=== PATIENT | female | born 2000 | race Hispanic/Latino ===

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

== ENCOUNTER 2025-02-23 00:55 | Emergency (ER) | payer SELFPAY ==
[2025-02-23 00:56] VITALS: BP 119/64; PULSE 64; RESP 14; TEMP 37.2; O2SAT 100; BMI 19.3
--- NOTE | 2025-02-23 01:08 | CT_ITS ---
PROCEDURE: SOFT TISSUE NECK WITH CONTRAST 02/23/2025 REASON FOR EXAM: ORAL ABSCESS TECHNIQUE: Procedure Code: CTNEW Modality: CT Procedure: SOFT TISSUE NECK WITH CONTRAST CONTRAST: Isovue 370 VOLUME: 75 mL One or more dose reduction techniques were used (e.g., Automated exposure control, adjustment of the mA and/or kV according to patient size, use of iterative reconstruction technique). RADIATION DOSE SUMMARY: CTDlvol: 9.9 mGy DLP: 276.49 mGycm COMPARISON: None FINDINGS: There is a mildly expansile lytic osseous lesion seen related to the root of the right lower second premolar tooth suggesting periapical cyst or abscess with associated overlying soft tissue swelling seen involving the right cheek region. Findings are highly suggestive of inflammatory process of dental origin, recommend clinical correlation. No cortical breach or sizable abscess formation seen on CT basis. The intracranial structures to the extent visualized appear within normal limits for the age of the patient. Bilateral mastoid air cells are well aerated. The visualized paranasal sinuses are well aerated. The nasopharynx, oropharynx, hypopharynx, supraglottic, glottic and infraglottic larynx, and trachea are unremarkable. Bilateral parotid and submandibular glands appear unremarkable. No evidence of duct dilatation or sialolith. The thyroid gland is unremarkable. The vessels of the neck are patent. No evidence of cervical adenopathy as per CT size criteria. Few subcentimeter level I and II reactive cervical lymph nodes are identified bilaterally. The visualized lung apices are clear. CT/Soft Tissue Neck WITH Contrast IMPRESSION: A mildly expansile lytic osseous lesion seen related to the root of the right l ower second premolar tooth suggesting periapical cyst or abscess with associated overlying soft tissue swelling seen involving t he right cheek region. Findings are highly suggestive of inflammatory process of dental origin, recommend clinical correla tion. [facility]
--- NOTE | 2025-02-23 01:30 | EDS_ITS ---
HPI History of Present Illness Chief Complaint: Dental Narrative Narrative: Patient was seen and examined after presenting to ED for dental pain she went to urgent care was prescribed antibiotics for this dental infection that she is having but she states she went home start developing a bump on the inside of her mouth she is also reporting fevers after going to urgent care as well she does not have a dentist but was given a dental referral sheet. PFSH PFSH Medical History delivery delivered Chlamydia infection affecting Placental abnormality History of prior with IUGR ventricular septal defect affecting antepartum care of mother Teen Placental abruption IUGR (intrauterine growth restriction) affecting care of mother Miscarriage Home Medications ?Medication ?Instructions ?Recorded ?Last Taken ?Type ibuprofen 600 mg tablet 600 mg PO Q6H PRN pain #20 t abs 06/14/21 Unknown Rx amoxicillin .ROUTE 02/23/25 Unknown Hist ory amoxicillin 875 mg-potassium 875 mg PO Q12H #20 TABLET S 02/23/25 Unknown Rx clavulanate 125 mg tablet Allergy/AdvReac Type Severity Reaction Status Date / Time No Known Allergies Allergy Verified 02/23/25 00:57 Social History Smoking Status: Never smoker ROS ROS ED ROS Narrative Pertinent Positives: Dental infection just darted antibiotics today now having what appears to be an abscess in the mouth and having fevers Pertinent Negatives: Chills numbness tingling airway compromise or difficulty breathing or swallowing The remainder of review of systems negative unless otherwise stated in the HPI above. Systems reviewed including constitutional, psychiatric, cardiovascular, respiratory, integument, HENT, gastrointestinal. EXAM Physical Exam Narrative Exam Narrative: Afebrile here she is normocephalic atraumatic hemodynamically stable. Oropharynx she has what appears to be an abscess on the inner mandibular side just under her tongue unsure of how far this may extend no lingual edema no angioedema or brawny tenderness or Nabil angina no airway compromise normal range of motion of head and neck is tender on palpation Const Vital Signs: 02/23/25 00:56 Temperature 98.9 F Temperature Source Oral Pulse Rate 64 Respiratory Rate 14 Blood Pressure 119/64 Blood Pressure Mean 82 Pulse Ox 100 Oxygen Delivery Method Room Air MDM MDM MDM Narrative Medical decision making narrative: Nursing notes, triage notes, available previous documentation, and vital signs were reviewed. Any discrepancies noted were addressed. Differential Diagnoses: Either apical or periapical abscess of her teeth there need to make sure that this does not extend further down like the base of the tongue not trench mouth does not appear to be consistent with Nabil angina Interventions: Dilaudid Zofran Antibiotics Given: Unasyn Labs Reviewed: No leukocytosis leukopenia or significant anemia or thrombocytopenia no electrolyte abnormality or renal insufficiency she is not Imaging Reviewed: Personally reviewed and interpreted by me: CT of the soft tissue neck showing expansive lytic osseous lesion at the root of the right lower second premolar tooth is consistent with a periapical abscess with soft tissue swelling as well. Previous Documentation Reviewed: None available or applicable at this time. ED Course: Patient presenting with a dental infection she likely has an abscess need to make sure it does not extend further into the mouth or neck if it does not we will go ahead and perform a bedside I&D. She was already given antibiotics. It does appear that she has a periapical abscess does not seem to be more extensive fortunately she is on Augmentin outside of here we will go ahead and give a dose of IV antibiotics here prior to her leaving they will I was originally planning on performing an I&D however the abscess ended up rupturing on its own and is actively draining. She will be given return precautions follow-up recommendations she is stable for discharge This note was made utilizing voice recognition software. All attempts were made to correct spelling or other errors prior to note completion. However, due to the fast-paced nature of emergency medicine, some errors may still be present. Lab Data Labs: Laboratory Results - last 24 hr 02/23/25 01:30 WBC 10.4 RBC 3.59 L Hgb 10.2 L Hct 31.8 L MCV 88.6 MCH 28.4 MCHC 32.1 RDW Std Deviation 42.5 RDW Coeff of Mina 13.0 Plt Count 248 MPV 10.1 Immature Gran % (Auto) 0.400 Neut % (Auto) 78.3 H Lymph % (Auto) 13.8 L [place] % (Auto) 6.2 Eos % (Auto) 1.0 Baso % (Auto) 0.3 Absolute Neuts (auto) 8.1 H Absolute Lymphs (auto) 1.43 Nucleated RBC % 0 Sodium 141 Potassium 3.6 Chloride 105 Carbon Dioxide 23.5 Anion Gap 13 BUN 5 Creatinine 0.54 L Estim Creat Clear Calc 124.09 Est GFR (MDRD) Non-Af 133 BUN/Creatinine Ratio 10.0 Glucose 112 H Calcium 8.9 Serum , Qual NEGATIVE Radiography Diagnostic Testing: Clinical Impression(s) from Imaging Studies Soft Tissue Neck CT 02/23/25 01:08 IMPRESSION: A mildly expansile lytic osseous lesion seen related to the root of the right lower second premolar tooth suggesting periapical cyst or abscess with associated overlying soft tissue swelling seen involving the right cheek region. Findings are highly suggestive of inflammatory process of dental origin, recommend clinical correlation. Reading Location: [place] [address] Discharge Plan Triage Chief Complaint: Dental ED Provider: Lalo Corley Dx/Rx/DC Orders Clinical Impression: Pain, dental, Periapical abscess, Chills Instructions: ED Dental Abscess Prescriptions: New amoxicillin-pot clavulanate 875-125 mg tablet 875 mg PO Q12H Qty: 20 0RF No Action ibuprofen 600 mg tablet 600 mg PO Q6H PRN (Reason: pain) Qty: 20 0RF amoxicillin .ROUTE Primary Care Provider: Care Physician,No Primary Referrals: Angelic Stovall NP, [facility] [Non-Staff, Pediatric Surgery] Activity Restrictions/Additional Instructions: I want you to go home and confirm that you have something called Augmentin otherwise known as amoxicillin clavulanate. If you have just plain amoxicillin I want you to go get the prescription I am writing you filled at the pharmacy. If it is rapidly getting worse and swelling is getting worse or you are having trouble breathing please return immediately otherwise give it a good 2 to 3 days worth of antibiotics Print Language: Maltese Disposition Disposition: Home, Self Care
[2025-02-23 01:41] LABS: Hematocrit 31.8 % (37-47); Hemoglobin 10.2 g/dL (12.0-15.0); Immature Granulocytes Count 0.040 X10^3/uL (0.0-0.0); Mean Corp Hgb Conc 32.1 g/dL (32-36); Mean Corpuscular Volume 88.6 fL (81-99); Mean Platelet Vol. 10.1 fl (6.2-12.0); NRBC Flagged by Analyzer 0 % (0-5); Platelet Count 248 K/mm3 (150-450); RBC Distribution Width CV 13.0 % (11.6-14.6); RBC Distribution Width SD 42.5 fl (35.1-43.9); Red Blood Count 3.59 M/mm3 (4.2-5.4); White Blood Count 10.4 K/mm3 (4.4-11.0)
--- OUTSIDE RECORDS SUMMARY | 2025-02-23 01:57 | XMS RPT_ITS | CCD ---
Author Organization [facility] Care Team Providers Care Tool Operator Name Role Phone VERONA STOVALL CNP Primary Care Physician RNVerona (Rn) Primary Care Provider Unavail able Pcp, No (History) Primary Care Provider Unavaila ble PCP, NO (HISTORY) Primary Care Unavailable CARLI ANN Attending Unavailable Medications Current Medications Medication Drug Class(es) Dates Sig (Normalized) Sig (Original) Ethinyl Estradiol / Levonorgestrel (2 sources) Progestin, Estrogen, Progestin-containi ng Intrauterine Device Start: 07-27-2021 take 1 tablet by mouth once daily Levonorgestrel-Eth inyl Estrad (ALESSE, 28,) 0.1mg - 20mcg per tablet Indications: Encounter for initial prescription of contraceptive pills Take 1 tablet by mouth once daily for 28 days. 28 tablet 0 07/27/2021 Active Start: 07-27-2021 End: 08-24-2021 take 1 tablet by mouth once daily Levonorgestrel-Ethinyl Estrad (ALESSE, 28,) 0.1mg - 20mcg per tablet Indications: Encounter for initial prescription of contraceptive pills Take 1 tablet by mouth once daily for 28 days. 28 tablet 0 07/27/2021 08/24/2021 Active Comment on above: Take 1 tablet by omar once daily for 28 days. ferrous sulfate 325 mg oral tablet (9 sources) Start: 05-27-2021 take 1 tablet by mouth once daily at breakfast ferrous sulfate (IRON) 325 mg (65 mg iron) tablet Take 1 tablet by mouth daily with breakfast. 30 tablet 1 05/27/2021 Active Start: 03-23-2021 IRON (ferrous sulfate 325 mg) 65 mg oral tablet Dose : 325 mg = 1 tab(s), Oral, BIDM, Take with food., # 60 tab(s), 3 Refill(s), [facility] DMIT[facility], 157.5, cm, 03/23/21 4:03:00 EST, Height, kg, 03/23/21 4:03:00 EST, Dosing Weight Start Date: 03/23/21 Status: Ordered Comment on above: Take 1 tablet by omar th daily with breakfast. metroNIDAZOLE 500 mg oral tablet (1 source) Nitroimidazole Antimicrobial Start: 09-25-19 End: 10-02-19 take 1 tablet by mouth twice daily metroNIDAZOLE (FLAGYL) 500 mg tablet Indications: Bacterial vaginosis Take 1 tablet by mouth two times a day for 7 days. 14 tablet 0 09/25/2023 10/02/2023 Active ondansetron 8 mg oral tablet (1 source) Serotonin-3 Receptor Antagonist Start: 03-23-19 Zofran 8 mg oral tablet Dose : 8 mg = 1 tab(s), Oral, TID, PRN Nausea/Vomiting, 0 Refill(s) Start Date: 03/23/21 Status: Ordered PNV no.95/ferrous fum/folic ac ( ORAL) (8 sources) PNV no.95/ferrou s fum/folic ac ( ORAL) Take by mouth. 0 Active Comment on above: Take by mouth. Prenate (1 source) Start: 03-23-19 Prenate Dose = 1 tab(s), Chewed, qDay, 0 Refill(s) Start Date: 03/23/21 Status: Ordered Problems Active Problems Problem Classification Problem Date Documented Date Episodic/Chronic Bacterial infection; unspecified site (9 sources) Chlamydial infection; Translations: [Chlamydial infection, unspecified] Onset: 04-21-2020 04-21-2020 Episodic Contraceptive and procreative management (1 source) Patient encounter status; Translations: [Encounter for initial prescription of contraceptive pills] Episodic Hemorrhage during ; abruptio placenta; placenta previa (1 source) Bleeding from female genital tract during ; Translations: [Antepartum hemorrhage, unspecified, unspecified trimester] Episodic Inflammatory diseases of female pelvic organs (2 sources) Bacterial vaginosis; Translations: [Acute vaginitis] Onset: 09-25-2023 09-25-2023 Episodic Other complications of ; puerperium affecting management of mother (1 source) Suspected disorder; Translations: [Maternal care for (suspected) abnormality and damage, unspecified, not applicable or unspecified] Episodic Other complications of ; puerperium affecting management of mother (1 source) Abnormality of heart; Translations: [Maternal care for other (suspected) abnormality and damage, not applicable or unspecified] Episodic Other and delivery including normal (3 sources) ; Translations: [Normal ] Onset: 03-11-2021 03-23-2021 Episodic Residual codes; unclassified (2 sources) Gestation period, 36 weeks; Translations: [36 weeks gestation of ] Episodic Past or Other Problems Problem Classification Problem Date Documented Da te Episodic/Chronic Other complications of (7 sources) Uterine size for dates discrepancy; Translations: [Uterine size-date discrepancy, third trimester] Onset: 04-29-2021 Resolved: 07-27-2021 04-29-2021 Episodic Other complications of (7 sources) History of clinical finding in subject; Translations: [Supervision of with insufficient care, unspecified trimester] Onset: 05-07-2021 Resolved: 07-27-2021 05-07-2021 Episodic Other complications of (7 sources) Teenage ; Translations: [Supervision of other high risk pregnancies, third trimester] Onset: 05-07-2021 Resolved: 07-27-2021 05-07-2021 Episodic Other complications of (8 sources) Poor growth affecting management; Translations: [Maternal care for other known or suspected poor growth, third trimester, not applicable or unspecified] Onset: 06-05-2021 Resolved: 07-27-2021 06-05-2021 Episodic Results Test Name Value Interpretation Reference Range Facil ity Bacteria Ur Culton Bacteria identified Cx Nom (U) CULTURE, URINE: <10,000 CFU/ml Normal Urogenital Talha Normal [facility] Comment on above: Performed By: #### 6 30-4 #### [facility] CLIA [id number] [facility] [place] [address] [place] C. trachomatis+N. gonorrhoea e DNA ASHLYN+probe Ql (Unsp spec)on 09-25-2023 C. trachomatis rRNA ASHLYN+probe Ql (Unsp spec) Positive Abnormal Negative for Chlamydia trachomatis by amplificaton [facility] Comment on above: Order Comment: Speci men Type: SWAB Ordering Facility: [facility] Address: [address] [place] [address] Performed By: #### 3 6902-5 #### [facility] CLIA [id number] [address] [place] [address] N. gonorrhoeae rRNA ASHLYN+probe Ql (Unsp spec) Negative Normal Negative for Neisseria gonorrhoeae by amplification [facility] Comment on above: Order Comment: Speci men Type: SWAB Ordering Facility: [facility] Address: [address] [place] [address] Performed By: #### 3 6902-5 #### [facility] CLIA [id number] [address] [place] [address] CNOVon 09-25-2023 CNOV Office Visit ([facility] ) MINNIE KHAN ([id number]) 4 F Date Time Provider Department 09/25/23 4:55 PM CARLI ANN [facility] During your visit today, we recorded the following information about you: Temperature Pulse Respiration Blood pressure 97.9 degrees 79/minute 16/minute 94/60 Weight Last Period 46.7 kg 08/31/23 Carli Ann PA-C 09/25/2023 6:26 PM Signed Minnie Pembertonwendy Bennett is a 23 year old female who presents with Vaginal Problem (Vaginal burning x 3 days denies any other symptoms ) Patient is a 23-year-old female presenting today with vaginal burning. Patient states that she has had symptoms for about 3 days now. Patient denies any other symptoms. Patient is sexually active but she does not think there could be any possible exposures to STDs. Patient was wanting to come in to be evaluated because her symptoms seem to be getting worse. PAST MEDICAL HISTORY Diagnosis Date Miscarriage 04/20/2020 Ovarian cyst 2017 ACTIVE PROBLEM LIST Chlamydial Infection Current Outpatient Medications Medication Sig Dispense Refill metroNIDAZOLE (FLAGYL) 500 mg tablet Take 1 tablet by mouth two times a day for 7 days. 14 tablet 0 Levonorgestrel-Ethinyl Estrad (ALESSE, 28,) 0.1mg - 20mcg per tablet Take 1 tablet by mouth once daily for 28 days. 28 tablet 0 ferrous sulfate (IRON) 325 mg (65 mg iron) tablet Take 1 tablet by mouth daily with breakfast. (Patient not taking: Reported on 09/25/2023) 30 tablet 1 PNV no.95/ferrous fum/folic ac ( ORAL) Take by mouth. (Patient not taking: Reported on 09/25/2023) No current facility-administered medications for this visit. Social History Tobacco Use Smoking status: Never Smokeless tobacco: Never Alcohol Use: Not on file Tobacco Use: Never History reviewed. No pertinent family history. Review of Systems Constitutional: Negative for chills, fever and malaise/fatigue. Respiratory: Negative. Cardiovascular: Negative. Gastrointestinal: Negative for abdominal pain, nausea and vomiting. Genitourinary: Negative for dysuria, flank pain, frequency, hematuria and urgency. Denies vaginal discharge. Admits to vaginal burning. Denies STD exposure. BP 94/60 Pulse 79 Temp 97.9 Resp 16 Wt 103 lb (46.7kg) SpO2 100% LMP 08/31/2023 Physical Exam Vitals and nursing note reviewed. Constitutional: General: She is not in acute distress. Appearance: Normal appearance. Cardiovascular: Rate and Rhythm: Normal rate and regular rhythm. Pulmonary: Effort: Pulmonary effort is normal. Breath sounds: Normal breath sounds. Abdominal: General: Abdomen is flat. Bowel sounds are normal. Tenderness: There is no abdominal tenderness. There is no right CVA tenderness, left CVA tenderness or guarding. Genitourinary: Comments: Delfina GUZMÁN was jira developer during this visit. Patient has normal outside structures. No lesions or rashes noted. Speculum was inserted normal vaginal holt cervix and cervical os. There is drainage near the cervical os which was taken for culture. No strawberry cervix noted on examination. No cervical motion tenderness noted on examination. Neurological: Mental Status: She is alert and oriented to person, place, and time. ASSESSMENT/PLAN: 1. Bacterial vaginosis - ICD9: 616.10, 041.9, ICD10: N76.0, B96.89 - URINALYSIS, DIPSTICK ONLY - HCG, QUALITATIVE, URINE - URINE CULTURE - TRICHOMONAS PREP - RAPID BACT VAGINOSIS (AK) - YEAST SCREEN - GONORRHEA/CHLAMYDIA NAAT - METRONIDAZOLE 500 MG TABLET Urinalysis urine was done in office today both were within normal limits. Urine culture will be sent out as well as testing for yeast infections and gonorrhea and chlamydia. Rapid BV and trichomoniasis were done in office today rapid strep was negative and rapid BV was positive. Metronidazole was sent to the pharmacy for the patient to take care of the BV and she is to take this as directed. We will call her if there is any positive results on further testing. Follow-up at [facility] if not improving. Patient agrees and understands plan at this time. Patient was stable upon discharge from [facility]. Carli Ann PA-C Referring Provider: SELF [200] Allergies As of Date: 09/25/2023 (No Known Allergies) Date Reviewed: 09/25/2023 Reviewed by: Carli Ann PA-C - Fully Assessed Reason for Visit: Vaginal Problem [117] Cmt: Vaginal burning x 3 days denies any other symptoms Primary Visit Diagnosis:Bacterial vaginosis [N76.0, B96.89] Order(s):URINALYSIS, DIPSTICK ONLY [SQUA] Order #: [id number] FUTURE HCG, QUALITATIVE, URINE [SQUHCG] Order #: [id number] FUTURE URINE CULTURE [SQURCUL] Order #: [id number]. #:[id number] URINALYSIS, DIPSTICK ONLY [SQUA] Order #: [id number]. #:[id number] HCG, QUALITATIVE, URINE [SQUHCG] Order #: [id number]. (more content not included)... [facility] Fungus Spec Culton 4 Fungus identified Cx Nom (Unsp spec) CULTURE, FUNGAL: No Fungus isolated after 10 days Normal [facility] Comment on above: Performed By: #### 5 80-1 #### [facility] CLIA [id number] [address] [facility] [place] [address] [place] HCG ( test) Ql (U)o n 09-25-2023 Interpretation and review of laboratory results Normal [facility] HCG Preg Ur Qlon 09-25-2023 HCG ( test) Ql (U) Negative Normal Negative [facility] Comment on above: Order Comment: Speci men Type: URINE SPECIMEN Ordering Facility: [facility] Address: [address] [place] [address] Result Comment: This test is intended to aid in the early detection of . Very dilute urine samples, as indicated by a low specific gravity, may not contain financial service representative levels of hCG. This test detects intact hCG only. This test does not reliably detect hCG degradation products, including free-beta subunit and beta-core fragment. Therefore, this test may show reduced reactivity in urine after 8 weeks gestation. A number of conditions other than , including trophoblastic disease and certain non-trophoblastic neoplasms cause elevated levels of hCG. As with any assay employing mouse antibodies, the possibility exists for interference by human anti-mouse antibodies (HAMA) in the specimen. The test provides a presumptive diagnosis for . Performed By: #### U A, 2106-3 #### [facility] CLIA [id number] [address] [place] [address] [place] HCG, QUALITATIVE, URINE PREG NANCYon 09-25-2023 HCG ( test) Ql (U) Negative Negative [facility] Comment on above: This test is intende d to aid in the early detection of . Very dilute urine samples, as indicated by a low specific gravity, may not contain financial service representative levels of hCG. This test detects intact hCG only. This test does not reliably detect hCG degradation products, including free-beta subunit and beta-core fragment. Therefore, this test may show reduced reactivity in urine after 8 weeks gestation. A number of conditions other than , including trophoblastic disease and certain non-trophoblastic neoplasms cause elevated levels of hCG. As with any assay employing mouse antibodies, the possibility exists for interference by human anti-mouse antibodies (HAMA) in the specimen. The test provides a presumptive diagnosis for . RAPID BACT VAGINOSIS (AK)on 09-25-2023 Bacterial sialidase Ql (Unsp spec) Positive Abnormal Negative for the presence of bacterial vaginosis. [facility] Interpretation and review of laboratory results Abnormal [facility] Bacterial sialidase Ql (Unsp spec) Positive Abnormal Negative for the presence of bacterial vaginosis. [facility] Comment on above: Order Comment: Speci men Type: SWAB Ordering Facility: [facility] Address: [address] [place] [address] Performed By: #### R APBVAG #### [facility] CLIA [id number] [address] [place] [address] OF [place] T vaginalis Ag Genital Ql IA on 09-25-2023 T. vaginalis Ag IA Ql (Genital specimen) TRICHOMONAS PREP RESULT: Negative for Trichomonas vaginalis antigen Normal [facility] Comment on above: Performed By: #### 6 566-4 #### [facility] CLIA [id number] [address] [place] [address] [place] T. vaginalis Ag IA Ql (Genit al specimen)Ordered By: Mariam Win on 09-25-2023 Interpretation and review of laboratory results Normal [facility] TRICHOMONAS PREPOrdered By: Mariam Win on 09-25-2023 T. vaginalis Ag IA Ql (Genital specimen) Negative Negative for Trichomonas Antigen [facility] URINALYSIS, DIPSTICK ONLYOrd ered By: Didi Lew on 09-25-2023 Bilirubin Ql (U) Negative Negative [facility] Clarity (Unsp spec) Clear Clear [facility] Color (U) Yellow Yellow [facility] Glucose Test strip (U) [Mass/Vol] Negative Negative [facility] Hemoglobin Ql (U) Negative Negative [facility] Interpretation and review of laboratory results Normal [facility] Ketones Ql (U) Negative Negative [facility] Leukocyte esterase Test strip Ql (U) Negative Negative [facility] Nitrite Ql (U) Negative Negative [facility] pH (U) 6.0 [pH] 5.0 - 8.0 [facility] Protein (U) [Mass/Vol] Negative Negative [facility] Specific gravity (U) [Rel density] 1.025 1.005 - 1.030 [facility] Urobilinogen Ql (U) Negative Negative [facility] URINALYSIS, DIPSTICK ONLYon 09-25-2023 Bilirubin Ql (U) Negative Normal Negative [facility] Comment on above: Order Comment: Speci men Type: URINE SPECIMEN Ordering Facility: [facility] Address: [address] [place] [address] Performed By: #### U A, 2105-05 #### [facility] CLIA [id number] [address] [place] [address] [place] Clarity (Unsp spec) Clear Normal Clear [facility] Comment on above: Order Comment: Speci men Type: URINE SPECIMEN Ordering Facility: [facility] Address: [address] [place] [address] Performed By: #### U A, 2105-05 #### [facility] CLIA [id number] [address] [place] [address] [place] Color (U) Yellow Normal Yellow [facility] Comment on above: Order Comment: Speci men Type: URINE SPECIMEN Ordering Facility: [facility] Address: [address] [place] [address] Performed By: #### U A, 2105-05 #### [facility] CLIA [id number] [address] [place] [address] [place] Glucose Test strip (U) [Mass/Vol] Negative Normal Negative [facility] Comment on above: Order Comment: Speci men Type: URINE SPECIMEN Ordering Facility: [facility] Address: [address] [place] [address] Performed By: #### U A, 2105-05 #### [facility] CLIA [id number] [address] [place] [address] [place] Hemoglobin Ql (U) Negative Normal Negative [facility] Comment on above: Order Comment: Speci men Type: URINE SPECIMEN Ordering Facility: [facility] Address: [address] [place] [address] Performed By: #### U A, 2105-05 #### [facility] CLIA [id number] [address] [place] [address] Ketones Ql (U) Negative Normal Negative [facility] Comment on above: Order Comment: Speci men Type: URINE SPECIMEN Ordering Facility: [facility] Address: [address] [place] [address] Performed By: #### U A, 2105-05 #### [facility] CLIA [id number] [address] [place] [address] [place] Leukocyte esterase Test strip Ql (U) Negative Normal Negative [facility] Comment on above: Order Comment: Speci men Type: URINE SPECIMEN Ordering Facility: [facility] Address: [address] [place] [address] Performed By: #### U A, 2105-05 #### [facility] CLIA [id number] [address] [place] [address] [place] Nitrite Ql (U) Negative Normal Negative [facility] Comment on above: Order Comment: Speci men Type: URINE SPECIMEN Ordering Facility: [facility] Address: [address] [place] [address] Performed By: #### U A, 2105-05 #### [facility] CLIA [id number] [address] [place] [address] [place] pH (U) 6.0 [pH] Normal 5.0-8.0 [facility] Comment on above: Order Comment: Speci men Type: URINE SPECIMEN Ordering Facility: [facility] Address: [address] [place] [address] Performed By: #### U A, 2105-05 #### [facility] CLIA [id number] [address] [place] [address] [place] Protein (U) [Mass/Vol] Negative Normal Negative [facility] Comment on above: Order Comment: Speci men Type: URINE SPECIMEN Ordering Facility: [facility] Address: [address] [place] [address] Performed By: #### U A, 2105-05 #### [facility] CLIA [id number] [address] [place] [address] Specific gravity (U) [Rel density] 1.025 Normal 1.005-1.030 [facility] Comment on above: Order Comment: Speci men Type: URINE SPECIMEN Ordering Facility: [facility] Address: [address] [place] [address] Performed By: #### U A, 2105-05 #### [facility] CLIA [id number] [address] [place] [address] Urobilinogen Ql (U) Negative Normal Negative [facility] Comment on above: Order Comment: Speci men Type: URINE SPECIMEN Ordering Facility: [facility] Address: [address] [place] [address] Performed By: #### U A, 2105-05 #### [facility] CLIA [id number] [address] [place] [address] Pathology Specimen OBon 05-21 PATH. Spec OB SEE PATHOLOGY REPORT Normal [facility] Comment on above: Order Comment: Reaso n for Laboratory Test Placenta for Lab studies Send Specimen For (Specify): Studies @ [facility] Lab:Routine Time of Procedure: 204 Date of Procedure: 06/13/21 Reason specimen being sent to pathology (Hx/complications): placental abruption Type of specimen: Placenta Type of procedure performed: Primary Section Result Comment: Spec imen submitted to Anatomical Pathology Department for testing. Performed By: #### L 350.1800 #### [facility] [address] [place], [place], [id number] CBC-Complete Blood Cnt No Di ffon 06-14-2021 Erythrocyte distribution width (RBC) [Ratio] 14.0 % Normal 11.6-14.6 [facility] Comment on above: Order Comment: Comme nts: Day #1 Reason for Laboratory Test Performed By: #### L 100.0500 #### [facility] [address] [place], [address] Hematocrit (Bld) [Volume fraction] 26.8 % Low 37-46 [facility] Comment on above: Order Comment: Comme nts: Day #1 Reason for Laboratory Test Performed By: #### L 100.0500 #### [facility] [address] [place], [address] Hemoglobin (Bld) [Mass/Vol] 8.7 g/dL Low 12.0-15.0 [facility] Comment on above: Order Comment: Comme nts: Day #1 Reason for Laboratory Test Performed By: #### L 100.0500 #### [facility] [address] [place], [address] MCH (RBC) [Entitic mass] 29.6 pg Normal 25.0-35.0 [facility] Comment on above: Order Comment: Comme nts: Day #1 Reason for Laboratory Test Performed By: #### L 100.0500 #### [facility] [address] [place], [address] MCHC (RBC) [Mass/Vol] 32.5 g/dL Normal 32-36 [facility] Comment on above: Order Comment: Comme nts: Day #1 Reason for Laboratory Test Performed By: #### L 100.0500 #### [facility] [address] [place], [address] MCV (RBC) [Entitic vol] 91.2 fL Normal 78-96 [facility] Comment on above: Order Comment: Comme nts: Day #1 Reason for Laboratory Test Performed By: #### L 100.0500 #### [facility] [address] [place], [address] Platelet mean volume (Bld) [Entitic vol] 12.4 fL High 6.2-12.0 [facility] Comment on above: Order Comment: Comme nts: Day #1 Reason for Laboratory Test Performed By: #### L 100.0500 #### [facility] [address] [place] [place], [address] Platelets (Bld) [#/Vol] 130 10*3/uL Low 150-450 [facility] Comment on above: Order Comment: Comme nts: Day #1 Reason for Laboratory Test Performed By: #### L 100.0500 #### [facility] [address] [place], [address] RBC (Bld) [#/Vol] 2.94 10*6/uL Low 4.1-4.8 [facility] Comment on above: Order Comment: Comme nts: Day #1 Reason for Laboratory Test Performed By: #### L 100.0500 #### [facility] [address] [place] [place], [address] RDW SD 46.3 fl High 35.1-43.9 [facility] Comment on above: Order Comment: Comme nts: Day #1 Reason for Laboratory Test Performed By: #### L 100.0500 #### [facility] [address] [place] [place], [address] WBC (Bld) [#/Vol] 12.8 10*3/uL Normal 4.5-13.0 [facility] Comment on above: Order Comment: Comme nts: Day #1 Reason for Laboratory Test Performed By: #### L 100.0500 #### [facility] [address] [place] [place], [address] Discharge Instructionon 05-20 Discharge Instruction [facility] Medical Records Department [address] [place] [address] Instructions for Home/Discharge Instructions 06/14/21 1135 MR#: [id number] Acct: [id number] Name: MINNIE KHAN Rep #: [id number] : 2000 20 From: Verona York DO PCP: MOUNA Lizama Status:ADM IN Discharge Instructions Diet Discharge Diet: No restrictions Activity Discharge Activity: May Not Drive and May Shower May resume sexual activity in: 6 weeks Ice area for (Minutes): 15 Weight Bearing Status: Weight bearing as tolerated Lifting Restrictions: Nothing heavier than baby Dressing / Incision Call your doctor if your incision/area has: Sudden Increased Bleeding, Increased Pain/ Swelling, Increased Redness, Foul Smelling Discharge and Swelling at the incision site Call your doctor if you observe: Fever of 101 or Higher, Coldness, Increased Pain, Numbness or Tingling, Change in Color, Inability to urinate, Inability to have a bowel movement, Using more than 1 pad per hour, Shortness of breath, Dizziness, Fainting spells, Swelling in the ankles, Chest pain, Increased palpitations (irregular heartbeat), Calf discomfort and Uncontrolled pain Suture Line Care: Avoid Pulling/Pushing and Avoid Pinching/Bending Remove Dressing in: 3 days (Remove in shower 3-4 days after your surgery or sooner if dresssing is saturated) Cleanse incision/area with: Soap Water Follow Up Care Please Follow Up With: verona york When: 1 week for incision check 6 weeks for visit Test Results: Test results from this visit will be discussed in further detail at your follow-up appointment, if applicable. Discharge Plan Admission Admit Date/Time: 06/12/21 23:45 Primary Reason for Your Visit: delivery Attending Provider: Verona York Primary Care Provider: Verona Stovall NP Instructions Patient Instructions: After a , C Section Dc Discharge Orders/Prescriptions Prescriptions: New oxycodone-acetaminophen [Percocet] 5-325 mg tablet 1 tab PO Q8H PRN (Reason: pain) 7 Days Qty: 10 RF: 0 ibuprofen 600 mg tablet 600 mg PO Q6H PRN (Reason: pain) Qty: 20 RF: 0 docusate sodium [Colace] 100 mg capsule 100 mg PO BID Qty: 20 RF: 0 ferrous sulfate 325 mg (65 mg iron) tablet 325 mg PO QODAY Qty: 30 RF: 0 Referrals / Follow Up: Verona Stovall NP, MECHANICAL ENGINEERING LECTURER-C [Primary Care Provider] - Disposition Disposition (needs filled in before D/C Order can be placed): Home, Self Care 06/14/21 1138 Verona York DO CC: MECHANICAL ENGINEERING LECTURER-C Verona Stovall Signed Normal [facility] CBC W/Diff, Automatedon 05-20 Absolute Lymph 1.03 X10 3/uL Normal 0.83-4.51 [facility] Comment on above: Performed By: #### L 100.0500, L300.3900, L300.4310, L300.4700 #### [facility] [address] [place], [address] Absolute Neut 6.4 X10 3/uL Normal 2.0-7.7 [facility] Comment on above: Performed By: #### L 100.0500, L300.3900, L300.4310, L300.4700 #### [facility] [address] [place], [address] Basophils/100 WBC (Bld) 0.5 % Normal 0-1 [facility] Comment on above: Performed By: #### L 100.0500, L300.3900, L300.4310, L300.4700 #### [facility] [address] [place], [address] Eosinophils/100 WBC (Bld) 1.5 % Normal 0-3 [facility] Comment on above: Performed By: #### L 100.0500, L300.3900, L300.4310, L300.4700 #### [facility] [address] [place], [address] Erythrocyte distribution width (RBC) [Ratio] 13.6 % Normal 11.6-14.6 [facility] Comment on above: Performed By: #### L 100.0500, L300.3900, L300.4310, L300.4700 #### [facility] [address] [place], [address] Hematocrit (Bld) [Volume fraction] 28.9 % Low 37-46 [facility] Comment on above: Performed By: #### L 100.0500, L300.3900, L300.4310, L300.4700 #### [facility] [address] [place], [address] Hemoglobin (Bld) [Mass/Vol] 9.6 g/dL Low 12.0-15.0 [facility] Comment on above: Performed By: #### L 100.0500, L300.3900, L300.4310, L300.4700 #### [facility] [address] [place], [address] IG% 4.400 High 0.0-0.9 [facility] Comment on above: Result Comment: IG% - Immature Granulocytes (promyelocytes, myelocytes and metamyelocytes) > 1% indicates that a LEFT SHIFT is Present. Performed By: #### L 100.0500, L300.3900, L300.4310, L300.4700 #### [facility] [address] [place], [address] Lymphocytes/100 WBC (Bld) 11.8 % Low 25-45 [facility] Comment on above: Performed By: #### L 100.0500, L300.3900, L300.4310, L300.4700 #### [facility] [address] [place], [address] MCH (RBC) [Entitic mass] 30.4 pg Normal 25.0-35.0 [facility] Comment on above: Performed By: #### L 100.0500, L300.3900, L300.4310, L300.4700 #### [facility] [address] [place], [address] MCHC (RBC) [Mass/Vol] 33.2 g/dL Normal 32-36 [facility] Comment on above: Performed By: #### L 100.0500, L300.3900, L300.4310, L300.4700 #### [facility] [address] [place], [address] MCV (RBC) [Entitic vol] 91.5 fL Normal 78-96 [facility] Comment on above: Performed By: #### L 100.0500, L300.3900, L300.4310, L300.4700 #### [facility] [address] [place], [address] Monocytes/100 WBC (Bld) 8.6 % High 3-6 [facility] Comment on above: Performed By: #### L 100.0500, L300.3900, L300.4310, L300.4700 #### [facility] [address] [place], [address] Neutrophils/100 WBC (Bld) 73.2 % High 34-64 [facility] Comment on above: Performed By: #### L 100.0500, L300.3900, L300.4310, L300.4700 #### [facility] [address] [place], [address] Nucleated RBC (Bld) [#/Vol] 1.7 10*3/uL Normal 0-5 [facility] Comment on above: Performed By: #### L 100.0500, L300.3900, L300.4310, L300.4700 #### [facility] [address] [place], [address] Platelet mean volume (Bld) [Entitic vol] 13.6 fL High 6.2-12.0 [facility] Comment on above: Performed By: #### L 100.0500, L300.3900, L300.4310, L300.4700 #### [facility] [address] [place], [address] Platelets (Bld) [#/Vol] 146 10*3/uL Low 150-450 [facility] Comment on above: Performed By: #### L 100.0500, L300.3900, L300.4310, L300.4700 #### [facility] [address] [place], [address] RBC (Bld) [#/Vol] 3.16 10*6/uL Low 4.1-4.8 [facility] Comment on above: Performed By: #### L 100.0500, L300.3900, L300.4310, L300.4700 #### [facility] [address] [place], [address] RDW SD 45.1 fl High 35.1-43.9 [facility] Comment on above: Performed By: #### L 100.0500, L300.3900, L300.4310, L300.4700 #### [facility] [address] [place], [address] WBC (Bld) [#/Vol] 8.7 10*3/uL Normal 4.5-13.0 [facility] Comment on above: Performed By: #### L 100.0500, L300.3900, L300.4310, L300.4700 #### [facility] [address] [place], [address] CNPCrystal 06-13-2021 BIANCA Telephone (OBGYWM) MINNIE KHAN ([id number]) 4 F Date Time Provider Department 06/13/21 WISWELL, VERONA OBGYWM During your visit today, we recorded the following information about you: Verona York MD 06/13/2021 11:16 AM Signed Pt presented to [facility] with vaginal bleeding, abdominal pain, ctx's, and late decelerations. Delivered by primary section on 06/13/21. She will need follow up in 1 week. Karla Mehta RN 06/15/2021 8:51 AM Signed Left message with mother to have patient call the office to schedule. Karla Mehta RN Allergies As of Date: 06/13/2021 (No Known Allergies) Date Reviewed: 06/12/2021 Reviewed by: Aide Evangelista MA - Fully Assessed Reason for Visit: Appointment [186] Prescriptions as of 06/15/2021 - ferrous sulfate (IRON) 325 mg (65 mg iron) tablet Take 1 tablet by mouth daily with breakfast. - PNV no.95/ferrous fum/folic ac ( ORAL) Take by mouth. Problem List As Of Date 06/13/2021 Noted Resolved Chlamydial infection [A74.9] 04/21/2020 Uterine size-date discrepancy, third trimester *04/29/2021 History of inadequate care [O09.30] 05/07/2021 High risk teen in third trimester [O0*05/07/2021 Poor growth affecting management of mothe*06/05/2021 Encounter Status:Closed by VERONA YORK on 06/13/21 [facility] COVID 19 AG RAPID (KIMBERLI TIAN T)on 06-13-2021 SARS-CoV-2 (COVID-19) RNA ASHLYN+probe Ql (Unsp spec) *Negative results from patients with symptom onset beyond five days should be treated as presumptive and confirmed by a molecular assay if clinically necessary. Negative results should not be used as the sole basis for treatment or for patient management. SARS-CoV-2 Ag Resp Ql IA.rapid *Positive results do not differentiate between SARS-CoV and SARS-CoV-2. If differentation of the specific SARS virus is desired an additional sample and an additional order is required. SARS-CoV-2 Ag Resp Ql IA.rapid * This test has not been FDA cleared or approved; the test has been authorized by FDA under an Emergency Use Authorization (EAU) for use by laboratories certified under CLIA that meet the requirements to perform moderate, high, or waived complexity tests. SARS-CoV-2 Ag Resp Ql IA.rapid Normal Reference Range: Negative SARS-CoV-2 (COVID 19) Negative RAPID METHOD Quidel Angelica Analyzer RULA Normal [facility] Comment on above: Performed By: #### L 100.0500, L300.3900, L300.4310, L300.4700 #### [facility] [address] [place], [address] H AND P Exam - OB/GYNon 05-20 H&P Exam - CLINICAL OUTCOMES MANAGER [facility] Medical Records Department [address] [place] [address] H P Exam - CLINICAL OUTCOMES MANAGER 06/13/21 0012 MR#: [id number] Acct: [id number] Name: MINNIE KHAN Rep #: [id number] : 2000 20 From: Verona York DO PCP: TIGRE LizamaC Status:ADM IN Location: [id number] HPI - General General Date of Admission: 06/12/21 HPI Narrative MINNIE BENNETT, is a 20 F who presents with vaginal bleeding. 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 She had first episode of vaginal bleeding about 1 week ago. She presented to the office today for a routine OB visit with no complaints. Came in tonight after passing a large blood clot at home and having a new episode of vaginal bleeding. Having ctx's as well. No lof. +FM. Maternal Data Information REYNA Calculator Estimated Delivery Date Method Current WG Current Estimate 07/04/21 Manual 37w 0d PFSH [facility] Medical History Miscarriage Home Medications 1 tab PO/SL DAILY 05/10/21 [History Last Taken 06/12/21 10:00] iron 325 mg PO/SL DAILY 05/10/21 [History Last Taken 06/12/21 10:00] Allergy/AdvReac Type Severity Reaction Status Date / Time No Known Allergies Allergy Verified 06/12/21 22:39 Social History Smoking Status: Never smoker History Elective abortions Hx Para 0 Spontaneous abortions Hx # Term Pregnancies Ectopic pregnancies Hx # Pregnancies Multiple births # of living children NST FHR Rate Baby A Baseline: 160 Variability:: Minimal and Moderate Accelerations:: 15 x 15 Decelerations:: Late Vital Signs Vital Signs Vital Signs: 06/12/21 22:45 06/12/21 22:48 06/12/21 23:23 Temperature 99.0 F Temperature Source Oral Pulse Rate 89 86 Blood Pressure 122/74 BP Systolic 122 BP Diastolic 74 Pulse Ox 100 Weight Weight: 113 lb 9.6 oz Body Mass Index (BMI) 20.7 Labs Labs Labs: Blood Type O POSITIVE Antibody Screen NEGATIVE Hct 28.8 % (37-46) L Hgb 9.8 g/dL (12.0-15.0) L Obstetrics US Assessment Plan (1) 37 weeks gestation of : PLAN: Recommend delivery at this time. Patient has had late decelerations with her contractions. Given this and a suspected chronic placental abruption with IUGR, I discussed with patient that fetus will likely not tolerate labor if we start an induction. Cvx 1/t/h so induction would likely be prolonged as well. Discussed if we do start an induction and baby is not tolerating labor there is a risk for an emergent section. Recommend proceeding with a primary section at this time. Discussed risk, benefits, alternatives of both an induction of labor and a section. Allowed patient time to consider and discuss plan of care with her . Patient met with pediatric cardiology yesterday, and they cleared her for delivery at [facility]. ventricular septal defect noted on echo. GBS negative. Received BMZ 06/05, 06/06. (2) IUGR (intrauterine growth restriction) affecting care of mother: (3) Vaginal bleeding during , antepartum: (4) Uterine contractions: (5) Placental abruption: (6) Teen : (7) ventricular septal defect affecting antepartum care of mother: 06/13/21 0022 Cosigner Signature (if applicable): CC: MOUNA Stovall; Dr. Verona York DO Signed ADDENDUM by Dr. Verona York DO on 06/13/21 at 0207 Addendum Patient discussed induction vs expectant management vs section with her . She understood r/b/a of a section and desired to proceed. Consent obtained. 06/13/21206 Cosigner Signature (if applicable): cc: MOUNA Stovall; Dr. Verona York, DO * Signed Normal [facility] Operative Reporton Operative Report [facility] Medical Records Department [address] [place] [address] Operative Report 06/13/21206 MR#: [id number] Acct: [id number] Name: MINNIE KHAN Rep #: [id number] : 2000 20 From: Verona York DO PCP: MOUNA Lizama Status:ADM IN Location: [id number] Problems Associated Problem List Diagnoses (1) 37 weeks gestation of : (2) Placental abruption: (3) Teen : (4) ventricular septal defect affecting antepartum care of mother: (5) IUGR (intrauterine growth restriction) affecting care of mother: (6) Vaginal bleeding during , antepartum: (7) Uterine contractions: (8) intolerance to labor, delivered, current hospitalization: Report of Operation Date of Procedure: 06/13/21 Pre-Operative Diagnosis: 37 week gestation, IUGR, suspected chronic placental abruption, vaginal bleeding, intolerance Post-Operative Diagnosis: As above Surgery/Procedure Performed:: PLTCS via pfannenstiel incision Description of Surgical Findings:: VFI in cephalic presentation. Clear fluid. Placenta with a small clot and abruption noted. Placenta was sent to pathology. Normal-appearing uterus and bilateral adnexa. Apgars 8, 9. Baby 4+ lbs. Surgeon: Jaylen financial analysis advisor: Priscilla Type of Anesthesia: Spinal Special Medications: None Specimen's removed: Placenta Drains: De La Cruz Estimated Blood Loss (mL): 500 Fluids Replaced: 1300 Description of Procedure: Indications: Patient is an 20-year-old who presented to labor and delivery at 37 weeks and 0 days with vaginal bleeding. Known IUGR and suspected chronic placental abruption. Maternal medicine recommended delivery at 37 weeks. Patient was having irregular contractions, and upon presentation late decelerations were noted with contractions. She desired to proceed with a primary section. Patient was taken to the operating room where a spinal anesthesia was found to be adequate. She was prepped and draped in the dorsal position with a leftward tilt. A Pfannenstiel skin incision was made with a scalpel and this was carried down to the underlying layer of fascia. The fascia was incised in the midline. The fascia was extended laterally using Cornejo scissors. The fascia was dissected off of the rectus muscles using a combination of sharp and blunt dissection. The rectus muscles were in the midline. The peritoneum was entered bluntly with good visualization of the bladder. The peritoneal incision was extended bluntly. A bladder blade was placed. A low transverse incision was made on the uterus and the incision was extended bluntly. The membranes were ruptured with an Allis for clear fluid. The head was delivered in a flexed position through the hysterotomy followed by the body of the without any force or delay. Cord was clamped and cut after a slight delay and a vigorous female was handed off to the waiting nursery staff. Cord gases were obtained. The placenta was removed with manual extraction and a small clot and abruption were noted. The placenta was sent to pathology for review. The uterus was cleared of all clot and debris. The uterus was exteriorized. The uterus was closed with Vicryl in a running locked fashion. A second imbricating layer using Vicryl was performed. Good hemostasis was noted. The uterus was placed back into the abdomen. Laila was placed over the hysterotomy. The peritoneum was closed with Vicryl in a running fashion. The fascia was closed with strata fix in a running fashion. The subcutaneous space was irrigated and made hemostatic with the Bovie cautery. The subcutaneous space was reapproximated using Vicryl. The skin was closed in a subcuticular fashion using Monocryl. Steri-Strips and a dressing were placed. Instrument, sponge, needle counts were correct and the patient was taken to the recovery in stable condition. The office manager executive assistant Priscilla FRAUSTO helped with draping the patient, delivering the baby, and with closure. Grafts/Implants Used: None Procedure Start Time: 01:16 Procedure Stop Time: 01:57 Complications None Admit VTE Documentation VTE Present on Admission: No VTE Mechan Device Prophylaxis: SCD's 06/13/21 0216 Cosigner Signature (if applicable): CC: MECHANICAL ENGINEERING LECTURER-C Verona Wilman; Dr. Verona York, DO Signed Normal [facility] Surgery Specimen Level Von 0 06-13-2021 Surgery Specimen Level V OPERATION: Primary section PRE-OP DIAGNOSIS: Induction TISSUE SUBMITTED: Placenta Placenta: Placental disc - third trimester placenta (399 gm). - Focal increased intervillous and perivillous fibrin deposition. Membranes - no pathologic diagnosis. Umbilical cord - three blood vessels and no pathologic diagnosis. CECIL:cassie 06/16/2021 Slides are reviewed. SPECIMEN: PLACENTA / CLINICAL INFORMATION: A. Weight: 2.14 kg B. Gestational Age: 37 weeks C. Sex: Female PLACENTAL WEIGHT (POST FIXATION): 399 gm PLACENTAL DIMENSIONS: 16 x 13 x 3 cm PLACENTAL SHAPE: Usual ovoid PLACENTAL WEIGHT FOR GESTATIONAL AGE: Within 10-99th percentile MEMBRANES - Present A. Insertion: Marginal B. Site of rupture from edge: At edge of placental disc C. Color of membrane: Craft-agarwal D. Abnormalities: Small amount of blood clots are also adherent to the membranes. UMBILICAL CORD - Present A. Color: Craft-agarwal B. Insertion: Paracentral C. Length: 27 cm D. Diameter: 1.4 cm E. Number of vessels: Three F. Abnormalities: None PLACENTAL DISC - Present A. Color of surface: Craft-agarwal B. surface abnormalities: None C. Maternal cotyledons: Intact with minimal tears D. Attached retro placental clot: A few blood clots are noted in the peripheral portion of the placenta. E. Cut surface: Dark red and spongy F. Lesions: None G. Separate clot: Absent SECTIONS SUBMITTED: 1. Membrane roll 2. Cord, maternal end 3. Cord, end 4. Placental disc, and maternal surfaces 5. Placental disc, and maternal surfaces 6. Placental disc, and maternal surfaces SJ:cassie 06/15/2021 TC:5 CPT: 23650 Signed (signature on file) Dr. Robbie Stone MD 06/16/21 1351 Normal [facility] Comment on above: Performed By: #### L 100.0500, L300.3900, L300.4310, L300.4700 #### [facility] [address] [place], [place], [id number] Type AND Screenon 06-13-2021 Ab SCREEN GEL Negative Normal [facility] Comment on above: Order Comment: SC-SE CTION Performed By: #### L 100.0500, L300.3900, L300.4310, L300.4700 #### [facility] [address] [place], [address] ABO and Rh group Nom (Bld) Blood group O Rh(D) positive Normal [facility] Comment on above: Order Comment: SC-SE CTION Performed By: #### L 100.0500, L300.3900, L300.4310, L300.4700 #### [facility] [address] [place], [address] CNPNon 06-12-2021 CNPN Telephone (CHPDMN) MINNIE KHAN ([id number]) 4 F Date Time Provider Department 06/12/21 LUZ MALONE PDMN During your visit today, we recorded the following information about you: Cynthia Cantor [facility] 06/12/2021 3:00 PM Signed Minnie called, CLINICAL OUTCOMES MANAGER wants to induce her tomorrow, 06/13/21. Please advise Allergies As of Date: 06/12/2021 (No Known Allergies) Date Reviewed: 06/12/2021 Reviewed by: Aide Evangelista MA - Fully Assessed Reason for Visit: [employer] [779] Prescriptions as of 06/23/2021 - ferrous sulfate (IRON) 325 mg (65 mg iron) tablet Take 1 tablet by mouth daily with breakfast. - PNV no.95/ferrous fum/folic ac ( ORAL) Take by mouth. Problem List As Of Date 06/12/2021 Noted Resolved Chlamydial infection [A74.9] 04/21/2020 Uterine size-date discrepancy, third trimester *04/29/2021 History of inadequate care [O09.30] 05/07/2021 High risk teen in third trimester [O0*05/07/2021 Poor growth affecting management of mothe*06/05/2021 Encounter Status:Closed by MARY ANN ADAMS on 06/23/21 [facility] 06-11-2021 [facility] URINE OB DIP B/Oon 2 Glucose Ql (U) Negative Neg mg/dL [facility] Protein.monoclonal (U) [Mass/Vol] trace Neg mg/dL [facility] CBC-Complete Blood Cnt No Di ffon 06-05-2021 Erythrocyte distribution width (RBC) [Ratio] 13.2 % Normal 11.6-14.6 [facility] Comment on above: Performed By: #### L 100.0500, L300.3900, L300.4310, L300.4700 #### [facility] [address] [place], [address] Hematocrit (Bld) [Volume fraction] 28.8 % Low 37-46 [facility] Comment on above: Performed By: #### L 100.0500, L300.3900, L300.4310, L300.4700 #### [facility] [address] [place], [address] Hemoglobin (Bld) [Mass/Vol] 9.8 g/dL Low 12.0-15.0 [facility] Comment on above: Performed By: #### L 100.0500, L300.3900, L300.4310, L300.4700 #### [facility] [address] [place], [address] MCH (RBC) [Entitic mass] 30.8 pg Normal 25.0-35.0 [facility] Comment on above: Performed By: #### L 100.0500, L300.3900, L300.4310, L300.4700 #### [facility] [address] [place], [address] MCHC (RBC) [Mass/Vol] 34.0 g/dL Normal 32-36 [facility] Comment on above: Performed By: #### L 100.0500, L300.3900, L300.4310, L300.4700 #### [facility] [address] [place], [address] MCV (RBC) [Entitic vol] 90.6 fL Normal 78-96 [facility] Comment on above: Performed By: #### L 100.0500, L300.3900, L300.4310, L300.4700 #### [facility] [address] [place], [address] Platelet mean volume (Bld) [Entitic vol] 13.3 fL High 6.2-12.0 [facility] Comment on above: Performed By: #### L 100.0500, L300.3900, L300.4310, L300.4700 #### [facility] [address] [place], [address] Platelets (Bld) [#/Vol] 151 10*3/uL Normal 150-450 [facility] Comment on above: Performed By: #### L 100.0500, L300.3900, L300.4310, L300.4700 #### [facility] [address] [place], [address] RBC (Bld) [#/Vol] 3.18 10*6/uL Low 4.1-4.8 [facility] Comment on above: Performed By: #### L 100.0500, L300.3900, L300.4310, L300.4700 #### [facility] [address] [place], [address] RDW SD 43.6 fl Normal 35.1-43.9 [facility] Comment on above: Performed By: #### L 100.0500, L300.3900, L300.4310, L300.4700 #### [facility] [address] [place], [address] WBC (Bld) [#/Vol] 7.1 10*3/uL Normal 4.5-13.0 [facility] Comment on above: Performed By: #### L 100.0500, L300.3900, L300.4310, L300.4700 #### [facility] Laboratory [address] [place], [address] Erythrocyte distribution width (RBC) [Ratio] 13.3 % Normal 11.6-14.6 [facility] Comment on above: Performed By: #### L 100.0500, L300.3900, L300.4310, L300.4700 #### [facility] [address] [place], [address] Hematocrit (Bld) [Volume fraction] 31.1 % Low 37-46 [facility] Comment on above: Performed By: #### L 100.0500, L300.3900, L300.4310, L300.4700 #### [facility] [address] [place], [address] Hemoglobin (Bld) [Mass/Vol] 10.6 g/dL Low 12.0-15.0 [facility] Comment on above: Performed By: #### L 100.0500, L300.3900, L300.4310, L300.4700 #### [facility] [address] [place], [address] MCH (RBC) [Entitic mass] 30.6 pg Normal 25.0-35.0 [facility] Comment on above: Performed By: #### L 100.0500, L300.3900, L300.4310, L300.4700 #### [facility] [address] [place], [address] MCHC (RBC) [Mass/Vol] 34.1 g/dL Normal 32-36 [facility] Comment on above: Performed By: #### L 100.0500, L300.3900, L300.4310, L300.4700 #### [facility] [address] [place], [address] MCV (RBC) [Entitic vol] 89.9 fL Normal 78-96 [facility] Comment on above: Performed By: #### L 100.0500, L300.3900, L300.4310, L300.4700 #### [facility] [address] [place], [address] Platelet mean volume (Bld) [Entitic vol] 13.2 fL High 6.2-12.0 [facility] Comment on above: Performed By: #### L 100.0500, L300.3900, L300.4310, L300.4700 #### [facility] [address] [place], [address] Platelets (Bld) [#/Vol] 162 10*3/uL Normal 150-450 [facility] Comment on above: Performed By: #### L 100.0500, L300.3900, L300.4310, L300.4700 #### [facility] [address] [place], [address] RBC (Bld) [#/Vol] 3.46 10*6/uL Low 4.1-4.8 [facility] Comment on above: Performed By: #### L 100.0500, L300.3900, L300.4310, L300.4700 #### [facility] [address] [place], [address] RDW SD 43.7 fl Normal 35.1-43.9 [facility] Comment on above: Performed By: #### L 100.0500, L300.3900, L300.4310, L300.4700 #### [facility] [address] [place], [address] WBC (Bld) [#/Vol] 6.9 10*3/uL Normal 4.5-13.0 [facility] Comment on above: Performed By: #### L 100.0500, L300.3900, L300.4310, L300.4700 #### [facility] [address] [place], [address] Fibrinogenon 06-05-2021 FIBRINOGEN 478 mg/dl High 203-444 [facility] Comment on above: Performed By: #### L 100.0500, L300.3900, L300.4310, L300.4700 #### [facility] [address] [place], [address] FIBRINOGEN 493 mg/dl High 203-444 [facility] Comment on above: Performed By: #### L 100.0500, L300.3900, L300.4310, L300.4700 #### [facility] [address] [place], [address] Partial Thromboplast Timeon 06-05-2021 aPTT Coag (Bld) [Time] 29.8 s Normal 24.1-36.2 [facility] Comment on above: Performed By: #### L 100.0500, L300.3900, L300.4310, L300.4700 #### [facility] [address] [place], [address] aPTT Coag (Bld) [Time] 30.0 s Normal 24.1-36.2 [facility] Comment on above: Performed By: #### L 100.0500, L300.3900, L300.4310, L300.4700 #### [facility] [address] [place], [address] Prothrombin Time w/INRon INR Coag (PPP) [Relative time] 1.0 {INR} Normal [facility] Comment on above: Performed By: #### L 100.0500, L300.3900, L300.4310, L300.4700 #### [facility] [address] [place], [address] PT Coag (PPP) [Time] 13.0 s Normal 11.7-14.9 [facility] Comment on above: Performed By: #### L 100.0500, L300.3900, L300.4310, L300.4700 #### [facility] [address] [place], [address] INR Coag (PPP) [Relative time] 1.1 {INR} Normal [facility] Comment on above: Performed By: #### L 100.0500, L300.3900, L300.4310, L300.4700 #### [facility] [address] [place], [address] PT Coag (PPP) [Time] 13.2 s Normal 11.7-14.9 [facility] Comment on above: Performed By: #### L 100.0500, L300.3900, L300.4310, L300.4700 #### [facility] [address] [place], [address] ROUTINE, GROUP B ST REP PCRon 06-05-2021 ROUTINE, GROUP B STREP PCR GROUP B STREP PCR: Negative for Group B Streptococcus by PCR. Normal [facility] Comment on above: Performed By: #### G BPCR #### [facility] CLIA [id number] [address] [place] [address] [place] OF [place] Type AND Screenon 06-05-2021 Ab SCREEN GEL Negative Normal [facility] Comment on above: Order Comment: PN Performed By: #### L 100.0500, L300.3900, L300.4310, L300.4700 #### [facility] [address] [place], [address] ABO and Rh group Nom (Bld) Blood group O Rh(D) positive [facility] Comment on above: Order Comment: PN Performed By: #### L 100.0500, L300.3900, L300.4310, L300.4700 #### [facility] [address] [place], [place], [id number] A1 CELL Not performed Normal [facility] Comment on above: Order Comment: Has p t arrived? YPN Result Comment: This specimen has been REJECTED due to Laboratory criteria: MisHandled. LUIS has been notified of need of recollection. 06/05/21 1315 Aravind Sterner Performed By: #### L 100.0500, L300.3900, L300.4310, L300.4700 #### [facility] [address] [place], [address] Ab SCREEN GEL Not performed Normal [facility] Comment on above: Order Comment: Has p t arrived? YPN Result Comment: This specimen has been REJECTED due to Laboratory criteria: MisHandled. LUIS has been notified of need of recollection. 06/05/211314 Aravind Sterner Performed By: #### L 100.0500, L300.3900, L300.4310, L300.4700 #### [facility] [address] [place], [place], [id number] ABO and Rh group Nom (Bld) Test Not Performed Normal [facility] Comment on above: Order Comment: Has p t arrived? YPN Result Comment: This specimen has been REJECTED due to Laboratory criteria: MisHandled. LUIS has been notified of need of recollection. 06/05/211314 Aravind Sterner Performed By: #### L 100.0500, L300.3900, L300.4310, L300.4700 #### [facility] [address] [place], [place], [address] ANTI A Not performed Normal [facility] Comment on above: Order Comment: Has p t arrived? YPN Result Comment: This specimen has been REJECTED due to Laboratory criteria: MisHandled. LUIS has been notified of need of recollection. 06/05/211314 Aravind Sterner Performed By: #### L 100.0500, L300.3900, L300.4310, L300.4700 #### [facility] [address] [place], [place], [id number] [phone] ANTI B Not performed Normal [facility] Comment on above: Order Comment: Has p t arrived? YPN Result Comment: This specimen has been REJECTED due to Laboratory criteria: MisHandled. LUIS has been notified of need of recollection. 06/05/21 1315 Aravind Sterner Performed By: #### L 100.0500, L300.3900, L300.4310, L300.4700 #### [facility] [address] [place], [address] ANTI D Not performed Normal [facility] Comment on above: Order Comment: Has p t arrived? YPN Result Comment: This specimen has been REJECTED due to Laboratory criteria: MisHandled. LUIS has been notified of need of recollection. 06/05/21 1315 Aravind Sterner Performed By: #### L 100.0500, L300.3900, L300.4310, L300.4700 #### [facility] [address] [place], [place], [address] B CELLS Not performed Normal [facility] Comment on above: Order Comment: Has p t arrived? YPN Result Comment: This specimen has been REJECTED due to Laboratory criteria: MisHandled. LUIS has been notified of need of recollection. 06/05/21 1315 Aravind Sterner Performed By: #### L 100.0500, L300.3900, L300.4310, L300.4700 #### [facility] [address] [place], [place], [address] BLD TYPE RECHEK Not performed Normal [facility] Comment on above: Order Comment: Has p t arrived? YPN Result Comment: This specimen has been REJECTED due to Laboratory criteria: MisHandled. LUIS has been notified of need of recollection. 06/05/21 1315 Aravind Sterner Performed By: #### L 100.0500, L300.3900, L300.4310, L300.4700 #### [facility] [address] [place], [address] Urinalysis, Completeon 06-01 AMORPHOUS 1+ Normal [facility] Comment on above: Order Comment: COLLE CTOR TO SPECIFY Performed By: #### L 100.0500, L300.3900, L300.4310, L300.4700 #### [facility] [address] [place], [address] BACTERIA 1+ /hpf Normal None Seen [facility] Comment on above: Order Comment: BILL CTOR TO SPECIFY Performed By: #### L 100.0500, L300.3900, L300.4310, L300.4700 #### [facility] [address] [place], [address] EPI,SQUAMOUS 0-5 SEEN Normal 5-10 [facility] Comment on above: Order Comment: BILL CTOR TO SPECIFY Performed By: #### L 100.0500, L300.3900, L300.4310, L300.4700 #### [facility] [address] [place], [address] WBC 0-5 SEEN Normal 0-5 [facility] Comment on above: Order Comment: BILL CTOR TO SPECIFY Performed By: #### L 100.0500, L300.3900, L300.4310, L300.4700 #### [facility] [address] [place], [address] Mucus Ql (Urine sed) 0 SEEN Normal [facility] Comment on above: Order Comment: BILL CTOR TO SPECIFY Performed By: #### L 100.0500, L300.3900, L300.4310, L300.4700 #### [facility] [address] [place], [address] RBC 0 SEEN Normal 0-5 [facility] Comment on above: Order Comment: BILL CTOR TO SPECIFY Performed By: #### L 100.0500, L300.3900, L300.4310, L300.4700 #### [facility] [address] 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 - PNV no.95/ferrous fum/folic ac ( ORAL) Take by mouth. Problem List As Of Date 04/30/2021 Noted Resolved Chlamydial infection [A74.9] 04/21/2020 Uterine size-date discrepancy, third trimester *04/29/2021 Encounter Status:Closed by MAMADOU KUMAR [facility]OBGYWM[facility] MINNIE KHAN ([id number]) 4 F Date Time Provider Department 04/15/21 JESSICA GRANADOS During your visit today, we recorded the following information about you: Cynthia Osborn RN 04/15/2021 5:00 PM Signed Received faxed medical records from [facility] in [place]. Patient would like to transfer records here since she moved here recently. Last visit was today at [place]. Patient scheduled for PNOB 04/30/2021 and NOB 05/04/2021. Her EDC is 07/04/2021. She was unable to do PNOB before 04/30 due to schedule availability. Please advise if this OK to wait until then. If not, we coulld schedule NOB sooner , without having PNOB, Jessica Granados APRN.CNM 04/27/2021 12:33 PM Signed That is fine to keep scheduled as is. Thank you, Jessica Granados APRN.CNM Allergies As of Date: 04/15/2021 (No Known Allergies) Date Reviewed: 04/29/2020 Reviewed by: Margaret Borges Ma - Fully Assessed Reason for Visit: Received Outside Medical Records [[id number]] Prescriptions as of 04/27/2021 - ibuprofen (MOTRIN) 400 mg tablet Take 400 mg by mouth every 6 hours as needed. - acetaminophen (TYLENOL) 325 mg tablet Take 650 mg by mouth every 6 hours as needed. Problem List As Of Date 04/15/2021 Noted Resolved Chlamydial infection [A74.9] 04/21/2020 Encounter Status:Closed by ALVINO WAGNER RN on 04/27/21 Normal [facility] CTPCRon 03-24-2021 C. trachomatis Interp Normal See CT Interp N [facility] ([place]) Comment on above: Result Comment: C. t rachomatis DNA not detected. Specimen is presumptive negative for C. trachomatis. A negative result does not preclude C. trachomatis infection because results depend on adequate specimen collection, absence of inhibitors, and sufficient DNA to be detected. See CT Interp N Performed By: #### C BC, ADIFF, ANEU, HBSAG, HCV1, HIV, PABOGEL, PABSGEL, RUBIS, RPR, VARIS #### [facility] [address] [place] [address] C.trachomatis PCR Negative Normal Negative [facility] ([place]) Comment on above: Result Comment: Mole cular (PCR) assay performed on the [employer] 4800 system. Performed By: #### C BC, ADIFF, ANEU, HBSAG, HCV1, HIV, PABOGEL, PABSGEL, RUBIS, RPR, VARIS #### [address] [address] Chlam Source Cervix Normal [facility] ([place]) Comment on above: Performed By: #### C BC, ADIFF, ANEU, HBSAG, HCV1, HIV, PABOGEL, PABSGEL, RUBIS, RPR, VARIS #### [address] [address] [id number] 03-24-2021 GC PCR Source Cervix Normal [facility] ([place]) Comment on above: Performed By: #### C BC, ADIFF, ANEU, HBSAG, HCV1, HIV, PABOGEL, PABSGEL, RUBIS, RPR, VARIS #### [place] [id number] N. gonorrhoeae (PCR) Negative Normal Negative [facility] ([place]) Comment on above: Result Comment: Mole cular (PCR) assay performed on the [employer] 4800 System. Performed By: #### C BC, ADIFF, ANEU, HBSAG, HCV1, HIV, PABOGEL, PABSGEL, RUBIS, RPR, VARIS #### [place] [address] N. gonorrhoeae Interp Normal See NG Interp N [facility] ([place]) Comment on above: Result Comment: N. g onorrhoeae DNA not detected. Specimen is presumptive negative for N. gonorrhoeae. A negative result does not preclude Neisseria gonorrhoeae infection because results depend on adequate specimen collection, absence of inhibitors, and sufficient DNA to be detected. See NG Interp N Performed By: #### C BC, ADIFF, ANEU, HBSAG, HCV1, HIV, PABOGEL, PABSGEL, RUBIS, RPR, VARIS #### [place] [id number] .Auto Diffon 03-23-2021 Basophil, Absolute 0.00 10 3/mcL Normal 0.00-0.27 [facility] ([place]) Comment on above: Performed By: #### C BC, ADIFF, ANEU, HBSAG, HCV1, HIV, PABOGEL, PABSGEL, RUBIS, RPR, VARIS #### [address] [address] Basophils/100 WBC (Bld) 0.3 % Normal 0.0-2.5 [facility] ([place]) Comment on above: Performed By: #### C BC, ADIFF, ANEU, HBSAG, HCV1, HIV, PABOGEL, PABSGEL, RUBIS, RPR, VARIS #### [address] [address] Eosinophil, Absolute 0.20 10 3/mcL Normal 0.00-0.65 [facility] ([place]) Comment on above: Performed By: #### C BC, ADIFF, ANEU, HBSAG, HCV1, HIV, PABOGEL, PABSGEL, RUBIS, RPR, VARIS #### [address] [address] Eosinophils/100 WBC (Bld) 2.5 % Normal 0.0-6.0 [facility] ([place]) Comment on above: Performed By: #### C BC, ADIFF, ANEU, HBSAG, HCV1, HIV, PABOGEL, PABSGEL, RUBIS, RPR, VARIS #### [address] [address] Lymphocyte, Absolute 2.10 10 3/mcL Normal 0.90-4.32 [facility] ([place]) Comment on above: Performed By: #### C BC, ADIFF, ANEU, HBSAG, HCV1, HIV, PABOGEL, PABSGEL, RUBIS, RPR, VARIS #### [address] [address] Lymphocytes/100 WBC (Bld) 24.8 % Normal 20.0-40.0 [facility] ([place]) Comment on above: Performed By: #### C BC, ADIFF, ANEU, HBSAG, HCV1, HIV, PABOGEL, PABSGEL, RUBIS, RPR, VARIS #### [address] [address] Monocyte, Absolute 0.60 10 3/mcL Normal 0.09-1.40 [facility] ([place]) Comment on above: Performed By: #### C BC, ADIFF, ANEU, HBSAG, HCV1, HIV, PABOGEL, PABSGEL, RUBIS, RPR, VARIS #### [address] [address] Monocytes/100 WBC (Bld) 7.1 % Normal 2.0-13.0 [facility] ([place]) Comment on above: Performed By: #### C BC, ADIFF, ANEU, HBSAG, HCV1, HIV, PABOGEL, PABSGEL, RUBIS, RPR, VARIS #### [address] [address] Neutrophils/100 WBC (Bld) 65.3 % Normal 50.0-75.0 [facility] ([place]) Comment on above: Performed By: #### C BC, ADIFF, ANEU, HBSAG, HCV1, HIV, PABOGEL, PABSGEL, RUBIS, RPR, VARIS #### [address] [address] .NEUABSon 03-23-2021 Neutrophil, Absolute 5.60 10 3/mcL Normal 2.25-8.10 [facility] ([place]) Comment on above: Performed By: #### C BC, ADIFF, ANEU, HBSAG, HCV1, HIV, PABOGEL, PABSGEL, RUBIS, RPR, VARIS #### [address] [address] ABO/Rh (Gel)on 03-23-2021 ABO/Rh Interp Positive Invalid Interpretation Code [facility] ([place]) Comment on above: Performed By: #### C BC, ADIFF, ANEU, HBSAG, HCV1, HIV, PABOGEL, PABSGEL, RUBIS, RPR, VARIS #### [address] [address] ABS (Gel)on 03-23-2021 ABSC Interp (Gel) Negative Normal [facility] ([place]) Comment on above: Performed By: #### C BC, ADIFF, ANEU, HBSAG, HCV1, HIV, PABOGEL, PABSGEL, RUBIS, RPR, VARIS #### [address] [address] CBCon 03-23-2021 Erythrocyte distribution width (RBC) [Ratio] 14.0 % Normal 11.5-15.5 [facility] ([place]) Comment on above: Performed By: #### C BC, ADIFF, ANEU, HBSAG, HCV1, HIV, PABOGEL, PABSGEL, RUBIS, RPR, VARIS #### [place] [address] Hematocrit (Bld) [Volume fraction] 26.6 % Low 34.0-46.0 [facility] ([place]) Comment on above: Performed By: #### C BC, ADIFF, ANEU, HBSAG, HCV1, HIV, PABOGEL, PABSGEL, RUBIS, RPR, VARIS #### [place] [address] Hgb 9.0 G/dL Low 12.0-16.0 [facility] ([place]) Comment on above: Performed By: #### C BC, ADIFF, ANEU, HBSAG, HCV1, HIV, PABOGEL, PABSGEL, RUBIS, RPR, VARIS #### [place] [address] MCH (RBC) [Entitic mass] 29.7 pg Normal 27.0-33.0 [facility] ([place]) Comment on above: Performed By: #### C BC, ADIFF, ANEU, HBSAG, HCV1, HIV, PABOGEL, PABSGEL, RUBIS, RPR, VARIS #### [place] [id number] MCHC 33.7 G/dL Normal 32.0-36.0 [facility] ([place]) Comment on above: Performed By: #### C BC, ADIFF, ANEU, HBSAG, HCV1, HIV, PABOGEL, PABSGEL, RUBIS, RPR, VARIS #### [place] [id number] MCV (RBC) [Entitic vol] 88.2 fL Normal 80.0-99.0 [facility] ([place]) Comment on above: Performed By: #### C BC, ADIFF, ANEU, HBSAG, HCV1, HIV, PABOGEL, PABSGEL, RUBIS, RPR, VARIS #### [address] [address] Platelet 239 10 3/mcL Normal 150-450 [facility] ([place]) Comment on above: Performed By: #### C BC, ADIFF, ANEU, HBSAG, HCV1, HIV, PABOGEL, PABSGEL, RUBIS, RPR, VARIS #### [address] [address] Platelet mean volume (Bld) [Entitic vol] 9.1 fL Normal 6.6-10.5 [facility] ([place]) Comment on above: Performed By: #### C BC, ADIFF, ANEU, HBSAG, HCV1, HIV, PABOGEL, PABSGEL, RUBIS, RPR, VARIS #### [place] [address] RBC 3.01 10 6/mcL Low 4.10-5.30 [facility] ([place]) Comment on above: Performed By: #### C BC, ADIFF, ANEU, HBSAG, HCV1, HIV, PABOGEL, PABSGEL, RUBIS, RPR, VARIS #### [place] [address] WBC 8.60 10 3/mcL Normal 4.50-10.80 [facility] ([place]) Comment on above: Performed By: #### C BC, ADIFF, ANEU, HBSAG, HCV1, HIV, PABOGEL, PABSGEL, RUBIS, RPR, VARIS #### [place] [address] LABORATORYOrdered By: Twila Faulkner on 03-23-2021 ABO and Rh group Nom (Bld) Blood group O Rh(D) positive Invalid Interpretation Code AH BB Auto SS Blood group antibody screen Ql NEG (03/23/21 4:57 AM) Invalid Interpretation Code AH BB Auto SS LABORATORYOrdered By: Amaya Morgan on 03-23-2021 Appearance (U) Clear (03/23/21 4:57 AM) Invalid Interpretation Code Clear AH Auto Urine SS Bilirubin Ql (U) Negative (03/23/21 4:57 AM) Invalid Interpretation Code Neg-Trace AH Auto Urine SS Color (U) Straw (03/23/21 4:57 AM) Invalid Interpretation Code AH Auto Urine SS Glucose Test strip (U) [Mass/Vol] Negative Invalid Interpretation Code Negativemg/dL AH Auto Urine SS Hemoglobin Auto test strip (U) [Mass/Vol] Negative (03/23/21 4:57 AM) Invalid Interpretation Code Neg-Trace AH Auto Urine SS Ketones Ql (U) Negative Invalid Interpretation Code Neg-Tracemg/dL AH Auto Urine SS UA Leuk Est Negative (03/23/21 4:57 AM) Invalid Interpretation Code Negative AH Auto Urine SS UA Nitrite Negative (03/23/21 4:57 AM) Invalid Interpretation Code Negative AH Auto Urine SS UA pH 7.0 (03/23/21 4:57 AM) Invalid Interpretation Code 5.0 - 8.0 AH Auto Urine SS UA Protein Negative Invalid Interpretation Code Negativemg/dL Auto Urine SS UA Spec Grav <=1.005 *ABN* (03/23/21 4:57 AM) Invalid Interpretation Code 1.006-1.029 AH Auto Urine SS UA Specimen Type Clean Catch (03/23/21 4:57 AM) Invalid Interpretation Code AH Auto Urine SS UA Urobilinogen 0.2 E.U./dL Invalid Interpretation Code 0.2-1.0E.U./dL AH Auto Urine SS LABORATORYOrdered By: SYSTEM SYSTEM on 03-23-2021 Basophils (Bld) [#/Vol] 0.00 103/mcL Invalid Interpretation Code 0.00 - 0.27 10^3/mcL AH Remisol SS Basophils/100 WBC (Bld) 0.3 % Invalid Interpretation Code 0.0 - 2.5 % AH Remisol SS Eosinophils (Bld) [#/Vol] 0.20 103/mcL Invalid Interpretation Code 0.00 - 0.65 10^3/mcL AH Remisol SS Eosinophils/100 WBC (Bld) 2.5 % Invalid Interpretation Code 0.0 - 6.0 % AH Remisol SS Erythrocyte distribution width (RBC) [Ratio] 14.0 % Invalid Interpretation Code 11.5 - 15.5 % AH Remisol SS Hematocrit (Bld) [Volume fraction] 26.6 % Invalid Interpretation Code 34.0 - 46.0 % AH Remisol SS Hemoglobin (Bld) [Mass/Vol] 9.0 G/dL Invalid Interpretation Code 12.0 - 16.0 G/dL AH Remisol SS Lymphocytes (Bld) [#/Vol] 2.10 103/mcL Invalid Interpretation Code 0.90 - 4.32 10^3/mcL AH Remisol SS Lymphocytes/100 WBC (Bld) 24.8 % Invalid Interpretation Code 20.0 - 40.0 % AH Remisol SS MCH (RBC) [Entitic mass] 29.7 pg Invalid Interpretation Code 27.0 - 33.0 pg AH Remisol SS MCHC (RBC) [Mass/Vol] 33.7 G/dL Invalid Interpretation Code 32.0 - 36.0 G/dL AH Remisol SS MCV (RBC) [Entitic vol] 88.2 fL Invalid Interpretation Code 80.0 - 99.0 fL AH Remisol SS Monocytes (Bld) [#/Vol] 0.60 103/mcL Invalid Interpretation Code 0.09 - 1.40 10^3/mcL AH Remisol SS Monocytes/100 WBC (Bld) 7.1 % Invalid Interpretation Code 2.0 - 13.0 % AH Remisol SS Neutrophils (Bld) [#/Vol] 5.60 103/mcL Invalid Interpretation Code 2.25 - 8.10 10^3/mcL AH Remisol SS Neutrophils/100 WBC (Bld) 65.3 % Invalid Interpretation Code 50.0 - 75.0 % AH Remisol SS Platelet mean volume (Bld) [Entitic vol] 9.1 fL Invalid Interpretation Code 6.6 - 10.5 fL AH Remisol SS Platelets (Bld) [#/Vol] 239 103/mcL Invalid Interpretation Code 150 - 450 10^3/mcL AH Remisol SS RBC (Bld) [#/Vol] 3.01 106/mcL Invalid Interpretation Code 4.10 - 5.30 10^6/mcL AH Remisol SS WBC (Bld) [#/Vol] 8.60 103/mcL Invalid Interpretation Code 4.50 - 10.80 10^3/mcL AH Remisol SS UAon 03-23-2021 Color (U) Straw Normal [facility] ([place]) Comment on above: Performed By: #### C BC, ADIFF, ANEU, HBSAG, HCV1, HIV, PABOGEL, PABSGEL, RUBIS, RPR, VARIS #### [address] (U) [Mass/Vol] Negative Normal Negative [facility] ([place]) Comment on above: Performed By: #### C BC, ADIFF, ANEU, HBSAG, HCV1, HIV, PABOGEL, PABSGEL, RUBIS, RPR, VARIS #### [place] [address] Ketones Ql (U) Negative Normal Neg-Trace [facility] ([place]) Comment on above: Performed By: #### C BC, ADIFF, ANEU, HBSAG, HCV1, HIV, PABOGEL, PABSGEL, RUBIS, RPR, VARIS #### [place] [address] UA Appear Clear Normal Clear [facility] ([place]) Comment on above: Performed By: #### C BC, ADIFF, ANEU, HBSAG, HCV1, HIV, PABOGEL, PABSGEL, RUBIS, RPR, VARIS #### [place] [id number] UA Blood Negative Normal Neg-Trace [facility] ([place]) Comment on above: Performed By: #### C BC, ADIFF, ANEU, HBSAG, HCV1, HIV, PABOGEL, PABSGEL, RUBIS, RPR, VARIS #### [place] [address] UA Leuk Est Negative Normal Negative [facility] ([place]) Comment on above: Performed By: #### C BC, ADIFF, ANEU, HBSAG, HCV1, HIV, PABOGEL, PABSGEL, RUBIS, RPR, VARIS #### [place] [address] UA Nitrite Negative Normal Negative [facility] ([place]) Comment on above: Performed By: #### C BC, ADIFF, ANEU, HBSAG, HCV1, HIV, PABOGEL, PABSGEL, RUBIS, RPR, VARIS #### [place] [address] UA pH 7.0 Normal 5.0 - 8.0 [facility] ([place]) Comment on above: Performed By: #### C BC, ADIFF, ANEU, HBSAG, HCV1, HIV, PABOGEL, PABSGEL, RUBIS, RPR, VARIS #### [place] [address] UA Protein Negative Normal Negative [facility] ([place]) Comment on above: Performed By: #### C BC, ADIFF, ANEU, HBSAG, HCV1, HIV, PABOGEL, PABSGEL, RUBIS, RPR, VARIS #### [place] [address] UA Spec Grav <=1.005 Abnormal 1.006-1.029 [facility] ([place]) Comment on above: Performed By: #### C BC, ADIFF, ANEU, HBSAG, HCV1, HIV, PABOGEL, PABSGEL, RUBIS, RPR, VARIS #### [place] [address] UA Specimen Type Clean Catch Normal [facility] ([place]) Comment on above: Performed By: #### C BC, ADIFF, ANEU, HBSAG, HCV1, HIV, PABOGEL, PABSGEL, RUBIS, RPR, VARIS #### [place] [address] UA Urobilinogen 0.2 E.U./dL Normal 0.2-1.0 [facility] ([place]) Comment on above: Performed By: #### C BC, ADIFF, ANEU, HBSAG, HCV1, HIV, PABOGEL, PABSGEL, RUBIS, RPR, VARIS #### [place] [address] Urobilinogen (U) [Mass/Vol] Negative Normal Neg-Trace [facility] ([place]) Comment on above: Performed By: #### C BC, ADIFF, ANEU, HBSAG, HCV1, HIV, PABOGEL, PABSGEL, RUBIS, RPR, VARIS #### [place] [address] RPRon 03-19-2021 Reagin Ab RPR Ql (S) Non-Reactive Normal Non-Reactive [facility] ([place]) Comment on above: Result Comment: The RPR test is a non-treponemal assay useful as an aid in the diagnosis of primary and secondary syphilis. It converts to positive generally within 2 weeks after the appearance of a lesion. This test is also useful for monitoring response to antibiotic therapy. A positive RPR screening test will be followed by the FTA ABS test. False positive RPR tests may occur in 1) patients with underlying autoimmune disorders, 2) elderly patients, 3) , and 4) other conditions with abnormal serum globulins. Performed By: #### C BC, ADIFF, ANEU, HBSAG, HCV1, HIV, PABOGEL, PABSGEL, RUBIS, RPR, VARIS #### [address] [address] .Auto Diffon 03-18-2021 Basophil, Absolute 0.00 10 3/mcL Normal 0.00-0.27 [facility] ([place]) Comment on above: Performed By: #### C BC, ADIFF, ANEU, HBSAG, HCV1, HIV, PABOGEL, PABSGEL, RUBIS, RPR, VARIS #### [address] [address] Basophils/100 WBC (Bld) 0.6 % Normal 0.0-2.5 [facility] ([place]) Comment on above: Performed By: #### C BC, ADIFF, ANEU, HBSAG, HCV1, HIV, PABOGEL, PABSGEL, RUBIS, RPR, VARIS #### [address] [address] Eosinophil, Absolute 0.20 10 3/mcL Normal 0.00-0.65 [facility] ([place]) Comment on above: Performed By: #### C BC, ADIFF, ANEU, HBSAG, HCV1, HIV, PABOGEL, PABSGEL, RUBIS, RPR, VARIS #### [address] [address] Eosinophils/100 WBC (Bld) 2.7 % Normal 0.0-6.0 [facility] ([place]) Comment on above: Performed By: #### C BC, ADIFF, ANEU, HBSAG, HCV1, HIV, PABOGEL, PABSGEL, RUBIS, RPR, VARIS #### [address] [address] Lymphocyte, Absolute 1.50 10 3/mcL Normal 0.90-4.32 [facility] ([place]) Comment on above: Performed By: #### C BC, ADIFF, ANEU, HBSAG, HCV1, HIV, PABOGEL, PABSGEL, RUBIS, RPR, VARIS #### [address] [address] Lymphocytes/100 WBC (Bld) 20.5 % Normal 20.0-40.0 [facility] ([place]) Comment on above: Performed By: #### C BC, ADIFF, ANEU, HBSAG, HCV1, HIV, PABOGEL, PABSGEL, RUBIS, RPR, VARIS #### [address] [address] Monocyte, Absolute 0.50 10 3/mcL Normal 0.09-1.40 [facility] ([place]) Comment on above: Performed By: #### C BC, ADIFF, ANEU, HBSAG, HCV1, HIV, PABOGEL, PABSGEL, RUBIS, RPR, VARIS #### [address] [address] Monocytes/100 WBC (Bld) 6.1 % Normal 2.0-13.0 [facility] ([place]) Comment on above: Performed By: #### C BC, ADIFF, ANEU, HBSAG, HCV1, HIV, PABOGEL, PABSGEL, RUBIS, RPR, VARIS #### [address] [address] Neutrophils/100 WBC (Bld) 70.1 % Normal 50.0-75.0 [facility] ([place]) Comment on above: Performed By: #### C BC, ADIFF, ANEU, HBSAG, HCV1, HIV, PABOGEL, PABSGEL, RUBIS, RPR, VARIS #### [address] [address] .NEUABSon 03-18-2021 Neutrophil, Absolute 5.30 10 3/mcL Normal 2.25-8.10 [facility] ([place]) Comment on above: Performed By: #### C BC, ADIFF, ANEU, HBSAG, HCV1, HIV, PABOGEL, PABSGEL, RUBIS, RPR, VARIS #### [address] [address] CBCon 03-18-2021 Erythrocyte distribution width (RBC) [Ratio] 14.3 % Normal 11.5-15.5 [facility] ([place]) Comment on above: Performed By: #### C BC, ADIFF, ANEU, HBSAG, HCV1, HIV, PABOGEL, PABSGEL, RUBIS, RPR, VARIS #### [place] [address] Hematocrit (Bld) [Volume fraction] 29.6 % Low 34.0-46.0 [facility] ([place]) Comment on above: Performed By: #### C BC, ADIFF, ANEU, HBSAG, HCV1, HIV, PABOGEL, PABSGEL, RUBIS, RPR, VARIS #### [place] [address] Hgb 10.1 G/dL Low 12.0-16.0 [facility] ([place]) Comment on above: Performed By: #### C BC, ADIFF, ANEU, HBSAG, HCV1, HIV, PABOGEL, PABSGEL, RUBIS, RPR, VARIS #### [place] [id number] MCH (RBC) [Entitic mass] 30.2 pg Normal 27.0-33.0 [facility] ([place]) Comment on above: Performed By: #### C BC, ADIFF, ANEU, HBSAG, HCV1, HIV, PABOGEL, PABSGEL, RUBIS, RPR, VARIS #### [place] [address] MCHC 34.2 G/dL Normal 32.0-36.0 [facility] ([place]) Comment on above: Performed By: #### C BC, ADIFF, ANEU, HBSAG, HCV1, HIV, PABOGEL, PABSGEL, RUBIS, RPR, VARIS #### [place] [id number] MCV (RBC) [Entitic vol] 88.3 fL Normal 80.0-99.0 [facility] ([place]) Comment on above: Performed By: #### C BC, ADIFF, ANEU, HBSAG, HCV1, HIV, PABOGEL, PABSGEL, RUBIS, RPR, VARIS #### [address] [address] Platelet 266 10 3/mcL Normal 150-450 [facility] ([place]) Comment on above: Performed By: #### C BC, ADIFF, ANEU, HBSAG, HCV1, HIV, PABOGEL, PABSGEL, RUBIS, RPR, VARIS #### [address] [address] Platelet mean volume (Bld) [Entitic vol] 10.0 fL Normal 6.6-10.5 [facility] ([place]) Comment on above: Performed By: #### C BC, ADIFF, ANEU, HBSAG, HCV1, HIV, PABOGEL, PABSGEL, RUBIS, RPR, VARIS #### [place] [id number] RBC 3.35 10 6/mcL Low 4.10-5.30 [facility] ([place]) Comment on above: Performed By: #### C BC, ADIFF, ANEU, HBSAG, HCV1, HIV, PABOGEL, PABSGEL, RUBIS, RPR, VARIS #### [address] [address] WBC 7.50 10 3/mcL Normal 4.50-10.80 [facility] ([place]) Comment on above: Performed By: #### C BC, ADIFF, ANEU, HBSAG, HCV1, HIV, PABOGEL, PABSGEL, RUBIS, RPR, VARIS #### [place] [address] [id number] 03-18-2021 Glucose [Mass/Vol] 35 mg/dL Critically abnormal 70-139 [facility] ([place]) Comment on above: Performed By: #### C BC, ADIFF, ANEU, HBSAG, HCV1, HIV, PABOGEL, PABSGEL, RUBIS, RPR, VARIS #### [place] [id number] CTRACHon 02-27-2021 Chlamydia Trachomatis Source GENITAL Normal [facility] ([place]) Comment on above: Result Comment: Perf ormed By: [facility] [employer] [address] [place] [address] Acquisition Advisor: Tyshawn Roman III#: [id number] Phone#: Performed By: #### C BC, ADIFF, ANEU, HBSAG, HCV1, HIV, PABOGEL, PABSGEL, RUBIS, RPR, VARIS #### [address] [address] [address] Culture Result Negative Normal [facility] ([place]) Comment on above: Result Comment: Refe rence range: Negative (NOTE) Due to the limited sensitivity of culture, a negative result does not rule out the presence of Chlamydia trachomatis in this specimen. Performed By: [employer] [address] [place] [address] Obstetrical Anesthesiologist: Halina Box MD Performed By: #### C BC, ADIFF, ANEU, HBSAG, HCV1, HIV, PABOGEL, PABSGEL, RUBIS, RPR, VARIS #### [place] [phone] [address] [place] [address] Basic Metabolic Profile (BMP )on 01-15-2021 BUN/CRE 23.6 RATIO High 01-07 [facility] Comment on above: Performed By: #### L 100.0500, L300.3900, L300.4310, L300.4700 #### [facility] [address] [facility] [place], [address] CA,Total 9.5 mg/dL Normal 8.5-10.1 [facility] Comment on above: Performed By: #### L 100.0500, L300.3900, L300.4310, L300.4700 #### [facility] [address] [facility] [place], [address] Chloride [Moles/Vol] 101 mmol/L Normal 98-107 [facility] Comment on above: Performed By: #### L 100.0500, L300.3900, L300.4310, L300.4700 #### [facility] [address] [place], [address] CO2 [Moles/Vol] 22.0 mmol/L Normal 21.0-32.0 [facility] Comment on above: Performed By: #### L 100.0500, L300.3900, L300.4310, L300.4700 #### [facility] [address] [place], [address] Creatinine [Mass/Vol] 0.76 mg/dL Normal 0.55-1.02 [facility] Comment on above: Result Comment: The validity of the calculated GFR GFRAA in patients over 70 years has not been determined. Clinical correlation is essential. Performed By: #### L 100.0500, L300.3900, L300.4310, L300.4700 #### [facility] [address] [place], [address] ECRCL 74.86 ml/min Normal [facility] Comment on above: Performed By: #### L 100.0500, L300.3900, L300.4310, L300.4700 #### [facility] [address] [place], [address] EST GFR - AA 126 mL/min Normal >60 [facility] Comment on above: Result Comment: Afri can Green[place] GFR Calc Performed By: #### L 100.0500, L300.3900, L300.4310, L300.4700 #### [facility] [address] [place], [address] GAP 14 Normal 5-15 [facility] Comment on above: Performed By: #### L 100.0500, L300.3900, L300.4310, L300.4700 #### [facility] [address] [place], [address] GFR/1.73 sq M.predicted among non-blacks MDRD (S/P/Bld) [Vol rate/Area] 104 mL/min/{1.73_m2} Normal >60 [facility] Comment on above: Result Comment: Non- GFR Calc Performed By: #### L 100.0500, L300.3900, L300.4310, L300.4700 #### [facility] [address] [place], [address] Glucose [Mass/Vol] 107 mg/dL High 74-106 [facility] Comment on above: Result Comment: Fast ing Glucose result from 100 to 125 mg/dL suggests IMPAIRED HOMEOSTASIS per A.D.A. criteria. Please note revised GLUCOSE reference range effective 2017. Performed By: #### L 100.0500, L300.3900, L300.4310, L300.4700 #### [facility] [address] [place], [address] Potassium [Moles/Vol] 3.3 mmol/L Low 3.5-5.1 [facility] Comment on above: Performed By: #### L 100.0500, L300.3900, L300.4310, L300.4700 #### [facility] [address] [place], [address] Sodium [Moles/Vol] 137 mmol/L Normal 136-145 [facility] Comment on above: Performed By: #### L 100.0500, L300.3900, L300.4310, L300.4700 #### [facility] [address] [place], [address] Urea nitrogen [Mass/Vol] 18 mg/dL Normal 7-18 [facility] Comment on above: Performed By: #### L 100.0500, L300.3900, L300.4310, L300.4700 #### [facility] [address] [place], [address] CBC W/Diff, Automatedon 10-2 Absolute Lymph 1.02 X10 3/uL Normal 0.83-4.51 [facility] Comment on above: Performed By: #### L 100.0500, L300.3900, L300.4310, L300.4700 #### [facility] [address] [place], [address] Absolute Neut 5.9 X10 3/uL Normal 2.0-7.7 [facility] Comment on above: Performed By: #### L 100.0500, L300.3900, L300.4310, L300.4700 #### [facility] [address] [place], [address] Basophils/100 WBC (Bld) 0.1 % Normal 0-1 [facility] Comment on above: Performed By: #### L 100.0500, L300.3900, L300.4310, L300.4700 #### [facility] [address] [place], [address] Eosinophils/100 WBC (Bld) 0.0 % Normal 0-3 [facility] Comment on above: Performed By: #### L 100.0500, L300.3900, L300.4310, L300.4700 #### [facility] [address] [place], [address] Erythrocyte distribution width (RBC) [Ratio] 12.8 % Normal 11.6-14.6 [facility] Comment on above: Performed By: #### L 100.0500, L300.3900, L300.4310, L300.4700 #### [facility] [address] [place], [address] Hematocrit (Bld) [Volume fraction] 36.6 % Low 37-46 [facility] Comment on above: Performed By: #### L 100.0500, L300.3900, L300.4310, L300.4700 #### [facility] [address] [place], [address] Hemoglobin (Bld) [Mass/Vol] 12.7 g/dL Normal 12.0-15.0 [facility] Comment on above: Performed By: #### L 100.0500, L300.3900, L300.4310, L300.4700 #### [facility] [address] [place], [address] IG% 0.800 Normal 0.0-0.9 [facility] Comment on above: Result Comment: IG% - Immature Granulocytes (promyelocytes, myelocytes and metamyelocytes) > 1% indicates that a LEFT SHIFT is Present. Performed By: #### L 100.0500, L300.3900, L300.4310, L300.4700 #### [facility] [address] [place], [address] Lymphocytes/100 WBC (Bld) 13.9 % Low 25-45 [facility] Comment on above: Performed By: #### L 100.0500, L300.3900, L300.4310, L300.4700 #### [facility] [address] [place], [address] MCH (RBC) [Entitic mass] 29.1 pg Normal 25.0-35.0 [facility] Comment on above: Performed By: #### L 100.0500, L300.3900, L300.4310, L300.4700 #### [facility] [address] [place], [address] MCHC (RBC) [Mass/Vol] 34.7 g/dL Normal 32-36 [facility] Comment on above: Performed By: #### L 100.0500, L300.3900, L300.4310, L300.4700 #### [facility] [address] [place], [address] MCV (RBC) [Entitic vol] 83.8 fL Normal 78-96 [facility] Comment on above: Performed By: #### L 100.0500, L300.3900, L300.4310, L300.4700 #### [facility] [address] [place], [address] Monocytes/100 WBC (Bld) 4.0 % Normal 3-6 [facility] Comment on above: Performed By: #### L 100.0500, L300.3900, L300.4310, L300.4700 #### [facility] [address] [place], [address] Neutrophils/100 WBC (Bld) 81.2 % High 34-64 [facility] Comment on above: Performed By: #### L 100.0500, L300.3900, L300.4310, L300.4700 #### [facility] [address] [place], [address] Nucleated RBC (Bld) [#/Vol] 0 10*3/uL Normal 0-5 [facility] Comment on above: Performed By: #### L 100.0500, L300.3900, L300.4310, L300.4700 #### [facility] [address] [place], [address] Platelet mean volume (Bld) [Entitic vol] 10.0 fL Normal 6.2-12.0 [facility] Comment on above: Performed By: #### L 100.0500, L300.3900, L300.4310, L300.4700 #### [facility] [address] [place], [address] Platelets (Bld) [#/Vol] 309 10*3/uL Normal 150-450 [facility] Comment on above: Performed By: #### L 100.0500, L300.3900, L300.4310, L300.4700 #### [facility] [address] [place], [address] RBC (Bld) [#/Vol] 4.37 10*6/uL Normal 4.1-4.8 [facility] Comment on above: Performed By: #### L 100.0500, L300.3900, L300.4310, L300.4700 #### [facility] [address] [place], [address] RDW SD 38.9 fl Normal 35.1-43.9 [facility] Comment on above: Performed By: #### L 100.0500, L300.3900, L300.4310, L300.4700 #### [facility] [address] [place], [address] WBC (Bld) [#/Vol] 7.3 10*3/uL Normal 4.5-13.0 [facility] Comment on above: Performed By: #### L 100.0500, L300.3900, L300.4310, L300.4700 #### [facility] [address] [place], [address] Emergency Department Summary on 01-15-2021 Emergency Department Summary [facility] Medical Records Department [address] [place] [address] Emergency Department Summary 01/15/21 MR#: [id number] Acct: [id number] Name: MINNIE KHAN Rep #: [id number] : 2000 20 From: Mahin Patterson MD PCP: Verona Stovall NP-Papa Status:REG ER Location: ED HPI History of Present Illness Chief Complaint: Nausea/Vomiting Informant: patient Narrative Narrative: Patient presents with nausea vomiting not controlled with Zofran. She is 16 weeks . She sees [facility] physician in [place]. She has been having nausea issues throughout . She was seen here about 2 weeks ago. She was given Zofran. Prior to that it sounds like she was on vitamin B6 just at night. She was not getting great relief with the Zofran. She called her OB physician. Evidently something was planned to be called in but it sounds like it has not occurred. She comes in because she just cannot keep food or liquids down. She states she will get a little epigastric discomfort with vomiting but generally not having abdominal pain or discharge. No urinary symptoms. She has had a slight sore throat for the last week but is not sure if that is from being ill or just from vomiting a lot. She has had no fevers or chills. No cough or trouble breathing. No muscle aches. She is a G1, P0 patient. [facility] Medical History Miscarriage Home Medications ondansetron 4 mg PO Q8H PRN PRN #10 tab 01/02/21 [Rx Last Taken Unknown] doxylamine-pyridoxine (vit B6) [Diclegis] 1 tab PO TID #30 tab 01/15/21 [Rx Last Taken Unknown] ondansetron 4 mg PO Q8H PRN #10 tab 01/15/21 [Rx Last Taken Unknown] promethazine 25 mg DC Q6H PRN #12 ea 01/15/21 [Rx Last Taken Unknown] pyridoxine (vitamin B6) [Vitamin B-6] 25 mg PO DAILY 01/15/21 [History Last Taken Unknown] Allergy/AdvReac Type Severity Reaction Status Date / Time No Known Allergies Allergy Verified 01/15/21 05:51 Social History Smoking Status: Never smoker ROS [facility] ED Constitutional Constitutional ED: Denies chills, fever(s) or sweats Eyes Eyes: Denies blurry vision ENT ENT ED: Reports sore throat; Denies rhinorrhea Cardiovascular Cardiovascular: Denies chest pain or palpitations Respiratory/Chest Respiratory/Chest: Denies cough or dyspnea Gastrointestinal Gastrointestinal: Reports nausea and vomiting Genitourinary Genitourinary ED: Denies dysuria Musculoskeletal Musculoskeletal: Denies arthralgias or myalgias Integumentary Denies rash Neurologic Neurologic: Denies headache(s), paresthesias or weakness Endocrine Endocrinology: Denies polydipsia or polyuria Allergic/Immunologic Allergic/Immunologic ED: Denies mouth swelling or urticaria EXAM Physical Exam Const Vital Signs: 01/15/21 05:48 Temperature 96.9 F L Temperature Source Temporal Pulse Rate 84 Respiratory Rate 16 Blood Pressure 111/67 Blood Pressure Mean 81 Pulse Ox 98 Oxygen Delivery Method Room Air Positive well nourished and well developed General Appearance ED: well developed and NAD HEENT Reports dry mucous membranes HEENT Narrative: Mucous membranes are dry. However, the tonsils are not red or inflamed. There is no exudate. Mouth ED: Yes dry mucous membranes Mouth: dry mucous membranes Eyes General Eye ED: Negative for pale conjunctiva or scleral icterus Neck no JVD Resp normal respiratory effort and clear to auscultation bilaterally Effort and Inspection: Negative for pain with movement Auscultation: Negative for rales, rhonchi or wheezes Cardio regular rate and regular rhythm GI normal to inspection, nondistended, normoactive bowel sounds, non-tender and non-distended Palpation: soft Back/Spine no CVA tenderness Extremity General Extremety ED: Negative for edema or tenderness General Extremity: Negative for edema Neuro oriented x3 Sensorium / Orientation: alert Psych mental status grossly normal Skin no rashes or lesions noted and no wounds MDM MDM MDM Narrative Medical decision making narrative: Blood work shows normal CBC. Electrolytes show minimally decreased potassium. This should self correct when we get her eating. I am hesitant to give her potassium orally now as it causes significant nausea and vomiting and may worsen her symptoms. Her creatinine is normal. BUN to creatinine ratio is elevated but better than when she was in here couple weeks ago. Glucose is okay. I am still waiting on her urinalysis. I rechecked the patient. She is feeling much better. She states the nausea is gone. She does not want anything else for nausea at this point. I talked with her about options. It sounds like before she was on vitamin B6 only and just once at night. I will write for di (more content not included)... Normal [facility] Urinalysis, Completeon 01-15 BACTERIA 4+ /hpf Normal None Seen [facility] Comment on above: Order Comment: CLEAN CATCH Performed By: #### L 100.0500, L300.3900, L300.4310, L300.4700 #### [facility] [address] [place], [address] CAST,HYALINE 0-5 SEEN Normal 0-5 [facility] Comment on above: Order Comment: CLEAN CATCH Performed By: #### L 100.0500, L300.3900, L300.4310, L300.4700 #### [facility] [address] [place], [address] EPI,SQUAMOUS 10-25 SEEN Normal 5-10 [facility] Comment on above: Order Comment: CLEAN CATCH Performed By: #### L 100.0500, L300.3900, L300.4310, L300.4700 #### [facility] [address] [place], [address] Mucus Ql (Urine sed) 1+ /hpf Normal [facility] Comment on above: Order Comment: CLEAN CATCH Performed By: #### L 100.0500, L300.3900, L300.4310, L300.4700 #### [facility] [address] [place], [address] RBC 0-5 SEEN Normal 0-5 [facility] Comment on above: Order Comment: CLEAN CATCH Performed By: #### L 100.0500, L300.3900, L300.4310, L300.4700 #### [facility] [address] [place], [address] WBC 5-10 SEEN Normal 0-5 [facility] Comment on above: Order Comment: CLEAN CATCH Performed By: #### L 100.0500, L300.3900, L300.4310, L300.4700 #### [facility] [address] [place], [address] .Auto Diffon 01-14-2021 Basophil, Absolute 0.00 10 3/mcL Normal 0.00-0.27 [facility] ([place]) Comment on above: Performed By: #### U A UAMIC #### [address] [address] Basophils/100 WBC (Bld) 0.1 % Normal 0.0-2.5 [facility] ([place]) Comment on above: Performed By: #### U Jake UAMIC #### [address] [address] Eosinophil, Absolute 0.00 10 3/mcL Normal 0.00-0.65 [facility] ([place]) Comment on above: Performed By: #### U Jake UAMIC #### [address] [address] Eosinophils/100 WBC (Bld) 0.1 % Normal 0.0-6.0 [facility] ([place]) Comment on above: Performed By: #### Sam Joseph UAMIC #### [address] [address] Lymphocyte, Absolute 1.40 10 3/mcL Normal 0.90-4.32 [facility] ([place]) Comment on above: Performed By: #### Sam Joseph UAMIC #### [address] [address] Lymphocytes/100 WBC (Bld) 19.7 % Low 20.0-40.0 [facility] ([place]) Comment on above: Performed By: #### Sam Joseph UAMIC #### [address] [address] Monocyte, Absolute 0.40 10 3/mcL Normal 0.09-1.40 [facility] ([place]) Comment on above: Performed By: #### Sam Joseph UAMIC #### [address] [address] Monocytes/100 WBC (Bld) 4.9 % Normal 2.0-13.0 [facility] ([place]) Comment on above: Performed By: #### U Jake UAMIC #### [address] [address] Neutrophils/100 WBC (Bld) 75.2 % High 50.0-75.0 [facility] ([place]) Comment on above: Performed By: #### U Jake UAMIC #### [address] [address] .GFRon 01-14-2021 GFR >60 Normal [facility] ([place]) Comment on above: Result Comment: GFR Population mean for , Non- Americans Ages 20-29 = 116 mL/min/1.73 sq.m. Ages 30-39 = 107 mL/min/1.73 sq.m. Ages 40-49 = 99 mL/min/1.73 sq.m. Ages 50-59 = 93 mL/min/1.73 sq.m. Ages 60-69 = 85 mL/min/1.73 sq.m. Ages 70+ = 75 mL/min/1.73 sq.m. Chronic Kidney Disease: Less than 60 mL/min/1.73 square meters End Stage Renal Disease: Less than 15 mL/min/1.73 square meters Performed By: #### C BC, ADIFF, ANEU, HBSAG, HCV1, HIV, PABOGEL, PABSGEL, RUBIS, RPR, VARIS #### [address] [address] GFR Non- >60 Normal [facility] ([place]) Comment on above: Result Comment: GFR Population mean for , Non- Americans Ages 20-29 = 116 mL/min/1.73 sq.m. Ages 30-39 = 107 mL/min/1.73 sq.m. Ages 40-49 = 99 mL/min/1.73 sq.m. Ages 50-59 = 93 mL/min/1.73 sq.m. Ages 60-69 = 85 mL/min/1.73 sq.m. Ages 70+ = 75 mL/min/1.73 sq.m. Chronic Kidney Disease: Less than 60 mL/min/1.73 square meters End Stage Renal Disease: Less than 15 mL/min/1.73 square meters Performed By: #### C BC, ADIFF, ANEU, HBSAG, HCV1, HIV, PABOGEL, PABSGEL, RUBIS, RPR, VARIS #### [address] [address] .NEUABSon 01-14-2021 Neutrophil, Absolute 5.40 10 3/mcL Normal 2.25-8.10 [facility] ([place]) Comment on above: Performed By: #### U A, UAMIC #### [address] [address] BMPon 01-14-2021 BUN/Creatinine Ratio 18.4 ratio Normal 10.0-22.0 [facility] ([place]) Comment on above: Performed By: #### U A, UAMIC #### [address] [address] Calcium [Mass/Vol] 9.1 mg/dL Normal 8.4-10.1 [facility] ([place]) Comment on above: Result Comment: No te - New Reference Range in effect 19 Performed By: #### U A, UAMIC #### [address] [address] Chloride [Moles/Vol] 104 mmol/L Normal 98-110 [facility] ([place]) Comment on above: Performed By: #### U A, UAMIC #### [address] [address] CO2 [Moles/Vol] 22 mmol/L Normal 22-32 [facility] ([place] Comment on above: Performed By: #### U A, UAMIC #### [address] [address] Creatinine [Mass/Vol] 0.38 mg/dL Low 0.50-1.20 [facility] ([place]) Comment on above: Performed By: #### U A, UAMIC #### [address] [address] Electrolyte Balance 9.0 mEq/L Normal 4.0-15.0 [facility] ([place]) Comment on above: Performed By: #### U A, UAMIC #### [address] [address] Glucose [Mass/Vol] 79 mg/dL Normal 70-110 [facility] ([place]) Comment on above: Performed By: #### U A, UAMIC #### [address] [address] Potassium [Moles/Vol] 3.7 mmol/L Normal 3.5-5.0 [facility] ([place]) Comment on above: Performed By: #### U A, UAMIC #### [address] [address] Sodium [Moles/Vol] 135 mmol/L Low 136-145 [facility] ([place]) Comment on above: Performed By: #### U A, UAMIC #### [place] [id number] Urea nitrogen [Mass/Vol] 7.0 mg/dL Low 8.0-22.0 [facility] ([place]) Comment on above: Performed By: #### U A, UAMIC #### [place] [id number] CBCon 01-14-2021 Erythrocyte distribution width (RBC) [Ratio] 14.1 % Normal 11.5-15.5 [facility] ([place]) Comment on above: Performed By: #### U A, UAMIC #### [place] [id number] Hematocrit (Bld) [Volume fraction] 34.3 % Normal 34.0-46.0 [facility] ([place]) Comment on above: Performed By: #### U A, UAMIC #### [place] [id number] Hgb 11.7 G/dL Low 12.0-16.0 [facility] ([place]) Comment on above: Performed By: #### U A, UAMIC #### [place] [id number] MCH (RBC) [Entitic mass] 29.3 pg Normal 27.0-33.0 [facility] ([place] Comment on above: Performed By: #### U A, UAMIC #### [place] [id number] MCHC 34.1 G/dL Normal 32.0-36.0 [facility] ([place]) Comment on above: Performed By: #### U A, UAMIC #### [place] [id number] MCV (RBC) [Entitic vol] 86.0 fL Normal 80.0-99.0 [facility] ([place]) Comment on above: Performed By: #### U A, UAMIC #### [facility] [address] [place] [address] Platelet 242 10 3/mcL Normal 150-450 [facility] ([place]) Comment on above: Performed By: #### U A, UAMIC #### [facility] [address] [place] [address] Platelet mean volume (Bld) [Entitic vol] 8.0 fL Normal 6.6-10.5 [facility] ([place]) Comment on above: Performed By: #### U A, UAMIC #### [place] [id number] [place] [address] RBC 3.98 10 6/mcL Low 4.10-5.30 [facility] ([place]) Comment on above: Performed By: #### U A, UAMIC #### [address] [address] WBC 7.10 10 3/mcL Normal 4.50-10.80 [facility] ([place]) Comment on above: Performed By: #### U A, UAMIC #### [address] [address] LIPon 01-14-2021 Lipase Level 28 U/L Normal 12-53 [facility] ([place]) Comment on above: Result Comment: No te - New Reference Range in effect 19 Performed By: #### C BC, ADIFF, ANEU, HBSAG, HCV1, HIV, PABOGEL, PABSGEL, RUBIS, RPR, VARIS #### [address] [address] LABORATORYOrdered By: Drew Byrd on 01-13-2021 Appearance (U) Hazy (Abnormal) (01/13/21 11:11 PM) [facility] Work Phone: Bilirubin Urine Dipstick Negative (01/13/21 11:11 PM) [facility] Work Phone: Blood Urine Dipstick Negative (01/13/21 11:11 PM) [facility] Work Phone: Glucose Urine Dipstick Negative (01/13/21 11:11 PM) [facility] Work Phone: Ketones Urine Dipstick 3+ (80mg/dl) (Abnormal) (01/13/21 11:11 PM) [facility] Work Phone: Leukocytes Urine Dipstick Negative (01/13/21 11:11 PM) [facility] Work Phone: Nitrite Urine Dipstick Negative (01/13/21 11:11 PM) [facility] Work Phone: pH Urine Dipstick 5 (01/13/21 11:11 PM) [facility] Work Phone: Protein Urine Dipstick Negative (01/13/21 11:11 PM) [facility] Work Phone: Specific [place] Urine Dipstick 1.020 (01/13/21 11:11 PM) [facility] Work Phone: Urine Color Urine Dipstick Dark Yellow (01/13/21 11:11 PM) [facility] Work Phone: Urobilinogen Urine Dipstick 0.2 mg/dl (01/13/21 11:11 PM) [facility] Work Phone: LABORATORYOrdered By: SYSTEM SYSTEM on 01-13-2021 Base excess Calc (BldMV) [Moles/Vol] 9.0 mEq/L Invalid Interpretation Code 4.0 - 15.0 mEq/L ADM SS Basophils (Bld) [#/Vol] 0.00 103/mcL Invalid Interpretation Code 0.00 - 0.27 10^3/mcL AH Remisol SS Basophils/100 WBC (Bld) 0.1 % Invalid Interpretation Code 0.0 - 2.5 % AH Remisol SS Calcium [Mass/Vol] 9.1 mg/dL Invalid Interpretation Code 8.4 - 10.1 mg/dL AH ADM SS Chloride [Moles/Vol] 104 mmol/L Invalid Interpretation Code 98 - 110 mEq/L AH ADM SS CO2 [Moles/Vol] 22 mmol/L Invalid Interpretation Code 22 - 32 mEq/L AH ADM SS Creatinine [Mass/Vol] 0.38 mg/dL Invalid Interpretation Code 0.50 - 1.20 mg/dL AH ADM SS Eosinophils (Bld) [#/Vol] 0.00 103/mcL Invalid Interpretation Code 0.00 - 0.65 10^3/mcL AH Remisol SS Eosinophils/100 WBC (Bld) 0.1 % Invalid Interpretation Code 0.0 - 6.0 % AH Remisol SS Erythrocyte distribution width (RBC) [Ratio] 14.1 % Invalid Interpretation Code 11.5 - 15.5 % AH Remisol SS GFR/1.73 sq M.predicted among blacks MDRD (S/P/Bld) [Vol rate/Area] ml/min/1.73sqm Invalid Interpretation Code AH ADM SS GFR/1.73 sq M.predicted among non-blacks MDRD (S/P/Bld) [Vol rate/Area] ml/min/1.73sqm Invalid Interpretation Code ADM SS Glucose [Mass/Vol] 79 mg/dL Invalid Interpretation Code 70 - 110 mg/dL ADM SS Hematocrit (Bld) [Volume fraction] 34.3 % Invalid Interpretation Code 34.0 - 46.0 % AH Remisol SS Hemoglobin (Bld) [Mass/Vol] 11.7 G/dL Invalid Interpretation Code 12.0 - 16.0 G/dL AH Remisol SS Lipase [Catalytic activity/Vol] 28 U/L Invalid Interpretation Code 12 - 53 U/L AH ADM SS Lymphocytes (Bld) [#/Vol] 1.40 103/mcL Invalid Interpretation Code 0.90 - 4.32 10^3/mcL AH Remisol SS Lymphocytes/100 WBC (Bld) 19.7 % Invalid Interpretation Code 20.0 - 40.0 % AH Remisol SS MCH (RBC) [Entitic mass] 29.3 pg Invalid Interpretation Code 27.0 - 33.0 pg AH Remisol SS MCHC (RBC) [Mass/Vol] 34.1 G/dL Invalid Interpretation Code 32.0 - 36.0 G/dL AH Remisol SS MCV (RBC) [Entitic vol] 86.0 fL Invalid Interpretation Code 80.0 - 99.0 fL AH Remisol SS Monocytes (Bld) [#/Vol] 0.40 103/mcL Invalid Interpretation Code 0.09 - 1.40 10^3/mcL AH Remisol SS Monocytes/100 WBC (Bld) 4.9 % Invalid Interpretation Code 2.0 - 13.0 % AH Remisol SS Neutrophils (Bld) [#/Vol] 5.40 103/mcL Invalid Interpretation Code 2.25 - 8.10 10^3/mcL AH Remisol SS Neutrophils/100 WBC (Bld) 75.2 % Invalid Interpretation Code 50.0 - 75.0 % AH Remisol SS Platelet mean volume (Bld) [Entitic vol] 8.0 fL Invalid Interpretation Code 6.6 - 10.5 fL AH Remisol SS Platelets (Bld) [#/Vol] 242 103/mcL Invalid Interpretation Code 150 - 450 10^3/mcL AH Remisol SS Potassium [Moles/Vol] 3.7 mmol/L Invalid Interpretation Code 3.5 - 5.0 mEq/L AH ADM SS RBC (Bld) [#/Vol] 3.98 106/mcL Invalid Interpretation Code 4.10 - 5.30 10^6/mcL AH Remisol SS Sodium [Moles/Vol] 135 mmol/L Invalid Interpretation Code 136 - 145 mEq/L AH ADM SS Urea nitrogen [Mass/Vol] 7.0 mg/dL Invalid Interpretation Code 8.0 - 22.0 mg/dL AH ADM SS Urea nitrogen/Creatinine [Mass ratio] 18.4 ratio Invalid Interpretation Code 10.0 - 22.0 ratio AH ADM SS WBC (Bld) [#/Vol] 7.10 103/mcL Invalid Interpretation Code 4.50 - 10.80 10^3/mcL AH Remisol SS Basic Metabolic Profile (BMP )on 01-02-2021 BUN/CRE 35.0 RATIO High 01-07 [facility] Comment on above: Performed By: #### L 100.0100, L500.2500 #### [facility] [address] [place], [address] CA,Total 9.8 mg/dL Normal 8.5-10.1 [facility] Comment on above: Performed By: #### L 100.0100, L500.2500 #### [facility] [address] [place], [address] Chloride [Moles/Vol] 97 mmol/L Low 98-107 [facility] Comment on above: Performed By: #### L 100.0100, L500.2500 #### [facility] [address] [place], [address] CO2 [Moles/Vol] 25.0 mmol/L Normal 21.0-32.0 [facility] Comment on above: Performed By: #### L 100.0100, L500.2500 #### [facility] [address] [place], [address] Creatinine [Mass/Vol] 0.66 mg/dL Normal 0.55-1.02 [facility] Comment on above: Result Comment: The validity of the calculated GFR GFRAA in patients over 70 years has not been determined. Clinical correlation is essential. Performed By: #### L 100.0100, L500.2500 #### [facility] [address] [place], [address] ECRCL 95.21 ml/min Normal [facility] Comment on above: Performed By: #### L 100.0100, L500.2500 #### [facility] [address] [place], [address] EST GFR - AA 150 mL/min Normal >60 [facility] Comment on above: Result Comment: Afri can [place] GFR Calc Performed By: #### L 100.0100, L500.2500 #### [facility] [address] [place], [address] GAP 11 Normal 5-15 [facility] Comment on above: Performed By: #### L 100.0100, L500.2500 #### [facility] [address] [place], [address] GFR/1.73 sq M.predicted among non-blacks MDRD (S/P/Bld) [Vol rate/Area] 124 mL/min/{1.73_m2} Normal >60 [facility] Comment on above: Result Comment: Non- GFR Calc Performed By: #### L 100.0100, L500.2500 #### [facility] [address] [place], [address] Glucose [Mass/Vol] 89 mg/dL Normal 74-106 [facility] Comment on above: Result Comment: Frances galvan note revised GLUCOSE reference range effective 2017. Performed By: #### L 100.0100, L500.2500 #### [facility] [address] [place], [address] Potassium [Moles/Vol] 3.6 mmol/L Normal 3.5-5.1 [facility] Comment on above: Result Comment: Slig ht Hemolysis, Result may be falsely increased. Performed By: #### L 100.0100, L500.2500 #### [facility] [address] [place], [address] Sodium [Moles/Vol] 133 mmol/L Low 136-145 [facility] Comment on above: Performed By: #### L 100.0100, L500.2500 #### [facility] [address] [place], [address] Urea nitrogen [Mass/Vol] 23 mg/dL High 7-18 [facility] Comment on above: Performed By: #### L 100.0100, L500.2500 #### [facility] [address] [place], [address] CBC W/Diff, Automatedon 10-1 Absolute Lymph 0.97 X10 3/uL Normal 0.83-4.51 [facility] Comment on above: Performed By: #### L 100.0100, L500.2500 #### [facility] [address] [place], [address] Absolute Neut 9.1 X10 3/uL High 2.0-7.7 [facility] Comment on above: Performed By: #### L 100.0100, L500.2500 #### [facility] [address] [place], [address] Basophils/100 WBC (Bld) 0.1 % Normal 0-1 [facility] Comment on above: Performed By: #### L 100.0100, L500.2500 #### [facility] [address] [place], [address] Eosinophils/100 WBC (Bld) 0.1 % Normal 0-3 [facility] Comment on above: Performed By: #### L 100.0100, L500.2500 #### [facility] [address] [place], [address] Erythrocyte distribution width (RBC) [Ratio] 12.6 % Normal 11.6-14.6 [facility] Comment on above: Performed By: #### L 100.0100, L500.2500 #### [facility] [address] [place], [address] Hematocrit (Bld) [Volume fraction] 36.4 % Low 37-46 [facility] Comment on above: Performed By: #### L 100.0100, L500.2500 #### [facility] [address] [place], [address] Hemoglobin (Bld) [Mass/Vol] 12.8 g/dL Normal 12.0-15.0 [facility] Comment on above: Performed By: #### L 100.0100, L500.2500 #### [facility] [address] [place], [address] IG% 0.500 Normal 0.0-0.9 [facility] Comment on above: Result Comment: IG% - Immature Granulocytes (promyelocytes, myelocytes and metamyelocytes) > 1% indicates that a LEFT SHIFT is Present. Performed By: #### L 100.0100, L500.2500 #### [facility] [address] [place], [address] Lymphocytes/100 WBC (Bld) 9.1 % Low 25-45 [facility] Comment on above: Performed By: #### L 100.0100, L500.2500 #### [facility] [address] [place], [address] MCH (RBC) [Entitic mass] 29.3 pg Normal 25.0-35.0 [facility] Comment on above: Performed By: #### L 100.0100, L500.2500 #### [facility] [address] [place], [address] MCHC (RBC) [Mass/Vol] 35.2 g/dL Normal 32-36 [facility] Comment on above: Performed By: #### L 100.0100, L500.2500 #### [facility] [address] [place], [address] MCV (RBC) [Entitic vol] 83.3 fL Normal 78-96 [facility] Comment on above: Performed By: #### L 100.0100, L500.2500 #### [facility] [address] [place], [address] Monocytes/100 WBC (Bld) 5.1 % Normal 3-6 [facility] Comment on above: Performed By: #### L 100.0100, L500.2500 #### [facility] [address] [place], [address] Neutrophils/100 WBC (Bld) 85.1 % High 34-64 [facility] Comment on above: Performed By: #### L 100.0100, L500.2500 #### [facility] [address] [place], [address] Nucleated RBC (Bld) [#/Vol] 0 10*3/uL Normal 0-5 [facility] Comment on above: Performed By: #### L 100.0100, L500.2500 #### [facility] [address] [place], [address] Platelet mean volume (Bld) [Entitic vol] 10.0 fL Normal 6.2-12.0 [facility] Comment on above: Performed By: #### L 100.0100, L500.2500 #### [facility] [address] [place], [address] Platelets (Bld) [#/Vol] 288 10*3/uL Normal 150-450 [facility] Comment on above: Performed By: #### L 100.0100, L500.2500 #### [facility] [address] [place], [address] RBC (Bld) [#/Vol] 4.37 10*6/uL Normal 4.1-4.8 [facility] Comment on above: Performed By: #### L 100.0100, L500.2500 #### [facility] [address] [place], [address] RDW SD 38.4 fl Normal 35.1-43.9 [facility] Comment on above: Performed By: #### L 100.0100, L500.2500 #### [facility] [address] [place], [address] WBC (Bld) [#/Vol] 10.7 10*3/uL Normal 4.5-13.0 [facility] Comment on above: Performed By: #### L 100.0100, L500.2500 #### [facility] [address] [place], [address] Emergency Department Summary on 01-02-2021 Emergency Department Summary [facility] Medical Records Department [address] [place] [address] Emergency Department Summary 01/02/21 MR#: [id number] Acct: [id number] Name: MINNIE KHAN Rep #: [id number] : 2000 20 From: David Caraballo DO PCP: MOUNA Lizama Status:DEP ER Location: ED HPI HPI - GI History of Present Illness Chief Complaint: Nausea/Vomiting Narrative Narrative: 20-year-old female G1, presenting with nausea and vomiting. She states this has been ongoing for 3 days. She states that her CLINICAL OUTCOMES MANAGER is in [place]. She came to [place] because she thought that her nausea and vomiting was caused by missing her mother. She does note that she was prior to coming. She has been taking B6 without relief. Patient does not have any abdominal pain. She does have GERD type symptoms from vomiting. She denies dysuria or hematuria. Patient is currently 13 weeks . [facility] Medical History Miscarriage Home Medications ondansetron 4 mg PO Q8H PRN PRN #10 tab 01/02/21 [Rx Last Taken Unknown] Allergy/AdvReac Type Severity Reaction Status Date / Time No Known Allergies Allergy Verified 12/23/20 15:01 Social History Smoking Status: Never smoker ROS ROS ED Constitutional Constitutional ED: Denies chills or fever(s) ENT ENT ED: Denies rhinorrhea or sore throat Cardiovascular Cardiovascular: Denies chest pain or palpitations Respiratory/Chest Respiratory/Chest: Denies cough, dyspnea or sputum Gastrointestinal Gastrointestinal: Reports nausea and vomiting; Denies abdominal pain Genitourinary Genitourinary ED: Denies dysuria or hematuria Musculoskeletal Musculoskeletal: Denies arthralgias or myalgias Integumentary Denies Abrasions or rash Neurologic Neurologic: Denies headache(s) or paresthesias EXAM Physical Exam Const Vital Signs: 01/02/21 16:30 01/02/21 22:43 Temperature 97.7 F L Temperature Source Temporal Pulse Rate 107 H 76 Respiratory Rate 18 Blood Pressure 83/63 L 108/61 L Blood Pressure Mean 69 76 Pulse Ox 100 98 Oxygen Delivery Method Room Air Positive well nourished General Appearance ED: NAD; Negative for pallor HEENT Reports moist mucous membranes normocephalic and atraumatic Eyes PERRL and EOMs intact bilaterally Resp normal respiratory effort and clear to auscultation bilaterally Cardio regular rate and regular rhythm GI non-tender Palpation: soft Extremity full ROM General Extremety ED: Negative for edema General Extremity: Negative for edema Neuro Sensorium / Orientation: alert, oriented to person, oriented to place and oriented to time Psych mental status grossly normal and thought process normal Skin General Skin Exam: Negative for jaundice or pallor MDM MDM MDM Narrative Medical decision making narrative: 20-year-old female G1, currently 13 weeks presenting with nausea and vomiting. She states that she is from [place] and that is where her CLINICAL OUTCOMES MANAGER is located. She felt as if she may be homesick and that be why she is nauseous. She is on B6 which is not helping her nausea. Patient denies any diarrhea. I did give the patient a liter of IV fluids, Zofran. She felt improved after this. Her blood work appears to be normal with exception of slight prerenal azotemia. Her urinalysis is negative for infection but does show urinary ketones. Patient will be given a prescription of Zofran at her request to cover her until she gets her will be. She is counseled to hydrate small amounts frequently ensure her urine is clear. She feels stable to be discharged home at this time. She can return precautions. Impression: 1. Hyperemesis gravidarum 2. Dehydration Lab Data Attestation: I reviewed the patient's lab results. Labs: Laboratory Results - last 24 hr 01/02/21 01/02/21 01/02/21 18:36 18:36 20:10 WBC 10.7 RBC 4.37 Hgb 12.8 Hct 36.4 L MCV 83.3 MCH 29.3 MCHC 35.2 RDW Std Deviation 38.4 RDW Coeff of Mina 12.6 Plt Count 288 MPV 10.0 Immature Gran % (Auto) 0.500 Neut % (Auto) 85.1 H Lymph % (Auto) 9.1 L Smith % (Auto) 5.1 Eos % (Auto) 0.1 Baso % (Auto) 0.1 Absolute Neuts (auto) 9.1 H Absolute Lymphs (auto) 0.97 Nucleated RBC % 0 Sodium 133 L Potassium 3.6 Chloride 97 L Carbon Dioxide 25.0 Anion Gap 11 BUN 23 H Creatinine 0.66 Estim Creat Clear Calc 95.21 Est GFR (MDRD) Af Amer 150 Est GFR (MDRD) Non-Af 124 BUN/Creatinine Ratio 35.0 H Glucose 89 Calcium 9.8 Urine Color Yellow Urine Clarity Clear Urine pH 6.0 Ur Specific [place] 1.025 Urine Protein 30 H Urine Glucose (UA) Normal Urine Ketones 150 A* (more content not included)... Normal [facility] Urinalysis, Completeon 01-02 BACTERIA 1+ /hpf Normal None Seen [facility] Comment on above: Order Comment: CLEAN CATCH Performed By: #### L 400.0001 #### [facility] [address] [place], [address] EPI,SQUAMOUS 0-5 SEEN Normal 5-10 [facility] Comment on above: Order Comment: CLEAN CATCH Performed By: #### L 400.0001 #### [facility] [address] [place], [address] RBC 0-5 SEEN Normal 0-5 [facility] Comment on above: Order Comment: CLEAN CATCH Performed By: #### L 400.0001 #### [facility] [address] [place], [address] WBC 0-5 SEEN Normal 0-5 [facility] Comment on above: Order Comment: CLEAN CATCH Performed By: #### L 400.0001 #### [facility] [address] [place], [address] Mucus Ql (Urine sed) 0 SEEN Normal [facility] Comment on above: Order Comment: CLEAN CATCH Performed By: #### L 400.0001 #### [facility] [address] [place], [address] CTPCRon 12-12-2020 C. trachomatis Interp Abnormal See CT Interp N [facility] ([place]) Comment on above: Result Comment: DNA detection by non-culture technique (PCR). Sensitivity testing not available with this method. This organism causes a reportable disease [facility] See [facility] Interp P Performed By: #### U A, UAMIC #### [address] [address] C.trachomatis PCR Positive Abnormal Negative [facility] ([place]) Comment on above: Result Comment: Jah mengar (PCR) assay performed on the [employer] 4800 system. Performed By: #### U A, UAMIC #### [address] [address] Chlam Source Cervix Normal [facility] ([place]) Comment on above: Performed By: #### U A, UAMIC #### [address] [address] [id number] 12-12-2020 GC PCR Source Cervix Normal [facility] ([place] Comment on above: Performed By: #### U A, UAMIC #### [address] [address] N. gonorrhoeae (PCR) Negative Normal Negative [facility] ([place] Comment on above: Result Comment: Jah cular (PCR) assay performed on the [employer] 4800 System. Performed By: #### U A, UAMIC #### [address] [address] N. gonorrhoeae Interp Normal See NG Interp N [facility] ([place] Comment on above: Result Comment: N. g onorrhoeae DNA not detected. Specimen is presumptive negative for N. gonorrhoeae. A negative result does not preclude Neisseria gonorrhoeae infection because results depend on adequate specimen collection, absence of inhibitors, and sufficient DNA to be detected. See NG Interp N Performed By: #### U A, UAMIC #### [address] [address] VARISon 12-12-[address] Positive Normal [facility] ([place]) Comment on above: Result Comment: This immune status assay detects antibody to Varicella Zoster virus. Interpret results in conjunction with clinical history. Positive: Reactive for antibodies to Varicella IgG. If clinically indicated, order Varicella IGM to rule out recent infection. Equivocal: Equivocal for antibodies to Varicella IgG. Suggest repeat testing in 10-14 days. Negative: Non-reactive for antibodies to Varicella IgG. Performed By: #### U A, UAMIC #### [address] [address] HBSAGon 12-11-2020 Hep B Surf Ag Non-Reactive Normal Non-Reactive [facility] ([place]) Comment on above: Performed By: #### C BC, ADIFF, ANEU, HBSAG, HCV1, HIV, PABOGEL, PABSGEL, RUBIS, RPR, VARIS #### [place] [id number] HCVon 12-11-2020 Hep C Ab Non-Reactive Normal Non-Reactive [facility] ([place]) Comment on above: Performed By: #### C BC, ADIFF, ANEU, HBSAG, HCV1, HIV, PABOGEL, PABSGEL, RUBIS, RPR, VARIS #### [place] [address] Hep C Ab Int Normal [facility] ([place]) Comment on above: Result Comment: Nonr eactive: Samples with a value < 0.80 are considered nonreactive (negative) for antibodies to HCV. A negative test result does not exclude the possibility of exposure to or infection with HCV. HCV antibodies may be undetectable in some stages of the infection and in some clinical conditions. See Interp Performed By: #### C BC, ADIFF, ANEU, HBSAG, HCV1, HIV, PABOGEL, PABSGEL, RUBIS, RPR, VARIS #### [place] [address] HIVon 12-11-2020 HIV 1/2 Ab Normal Non-Reactive [facility] ([place]) Comment on above: Result Comment: Non- Reactive Specimen is negative for anti-HIV-1 and anti-HIV-2. Performed By: #### C BC, ADIFF, ANEU, HBSAG, HCV1, HIV, PABOGEL, PABSGEL, RUBIS, RPR, VARIS #### [place] [address] PABO (Gel)on 12-11-2020 PABO/Rh Interp (Gel) Positive Invalid Interpretation Code [facility] ([place]) Comment on above: Performed By: #### C BC, ADIFF, ANEU, HBSAG, HCV1, HIV, PABOGEL, PABSGEL, RUBIS, RPR, VARIS #### [address] [address] PABS (Gel)on 12-11-2020 PABS Interp (Gel) Negative Normal [facility] ([place]) Comment on above: Performed By: #### C BC, ADIFF, ANEU, HBSAG, HCV1, HIV, PABOGEL, PABSGEL, RUBIS, RPR, VARIS #### [address] [address] RPRon 12-11-2020 Reagin Ab RPR Ql (S) Non-Reactive Normal Non-Reactive [facility] ([place]) Comment on above: Result Comment: The RPR test is a non-treponemal assay useful as an aid in the diagnosis of primary and secondary syphilis. It converts to positive generally within 2 weeks after the appearance of a lesion. This test is also useful for monitoring response to antibiotic therapy. A positive RPR screening test will be followed by the FTA ABS test. False positive RPR tests may occur in 1) patients with underlying autoimmune disorders, 2) elderly patients, 3) , and 4) other conditions with abnormal serum globulins. Performed By: #### U A, UAMIC #### [place] [id number] RUBISon 12-11-[address] Positive Normal Positive [facility] ([place]) Comment on above: Result Comment: This immune status assay detects IgM and/or IgG antibody to Rubella. Interpret results in conjunction with clinical history. POS: Antibody detected; exposure at undetermined recent or distant time. If clinically indicated, order Rubella IGM to rule out recent infection. NEG: No antibody detected. Performed By: #### U A, UAMIC #### [place] [id number] .Auto Diffon 12-10-2020 Basophil, Absolute 0.00 10 3/mcL Normal 0.00-0.27 [facility] ([place]) Comment on above: Performed By: #### C BC, ADIFF, ANEU, HBSAG, HCV1, HIV, PABOGEL, PABSGEL, RUBIS, RPR, VARIS #### [address] [address] Basophils/100 WBC (Bld) 0.6 % Normal 0.0-2.5 [facility] ([place]) Comment on above: Performed By: #### C BC, ADIFF, ANEU, HBSAG, HCV1, HIV, PABOGEL, PABSGEL, RUBIS, RPR, VARIS #### [address] [address] Eosinophil, Absolute 0.10 10 3/mcL Normal 0.00-0.65 [facility] ([place]) Comment on above: Performed By: #### C BC, ADIFF, ANEU, HBSAG, HCV1, HIV, PABOGEL, PABSGEL, RUBIS, RPR, VARIS #### [address] [address] Eosinophils/100 WBC (Bld) 1.5 % Normal 0.0-6.0 [facility] ([place]) Comment on above: Performed By: #### C BC, ADIFF, ANEU, HBSAG, HCV1, HIV, PABOGEL, PABSGEL, RUBIS, RPR, VARIS #### [address] [address] Lymphocyte, Absolute 2.10 10 3/mcL Normal 0.90-4.32 [facility] ([place]) Comment on above: Performed By: #### C BC, ADIFF, ANEU, HBSAG, HCV1, HIV, PABOGEL, PABSGEL, RUBIS, RPR, VARIS #### [address] [address] Lymphocytes/100 WBC (Bld) 26.5 % Normal 20.0-40.0 [facility] ([place]) Comment on above: Performed By: #### C BC, ADIFF, ANEU, HBSAG, HCV1, HIV, PABOGEL, PABSGEL, RUBIS, RPR, VARIS #### [address] [address] Monocyte, Absolute 0.60 10 3/mcL Normal 0.09-1.40 [facility] ([place]) Comment on above: Performed By: #### C BC, ADIFF, ANEU, HBSAG, HCV1, HIV, PABOGEL, PABSGEL, RUBIS, RPR, VARIS #### [address] [address] Monocytes/100 WBC (Bld) 8.2 % Normal 2.0-13.0 [facility] ([place]) Comment on above: Performed By: #### C BC, ADIFF, ANEU, HBSAG, HCV1, HIV, PABOGEL, PABSGEL, RUBIS, RPR, VARIS #### [address] [address] Neutrophils/100 WBC (Bld) 63.2 % Normal 50.0-75.0 [facility] ([place]) Comment on above: Performed By: #### C BC, ADIFF, ANEU, HBSAG, HCV1, HIV, PABOGEL, PABSGEL, RUBIS, RPR, VARIS #### [address] [address] .NEUABSon 12-10-2020 Neutrophil, Absolute 4.90 10 3/mcL Normal 2.25-8.10 [facility] ([place]) Comment on above: Performed By: #### C BC, ADIFF, ANEU, HBSAG, HCV1, HIV, PABOGEL, PABSGEL, RUBIS, RPR, VARIS #### [address] [address] CBCon 12-10-2020 Erythrocyte distribution width (RBC) [Ratio] 13.7 % Normal 11.5-15.5 [facility] ([place]) Comment on above: Performed By: #### C BC, ADIFF, ANEU, HBSAG, HCV1, HIV, PABOGEL, PABSGEL, RUBIS, RPR, VARIS #### [address] [address] Hematocrit (Bld) [Volume fraction] 33.6 % Low 34.0-46.0 [facility] ([place]) Comment on above: Performed By: #### C BC, ADIFF, ANEU, HBSAG, HCV1, HIV, PABOGEL, PABSGEL, RUBIS, RPR, VARIS #### [place] [address] Hgb 11.4 G/dL Low 12.0-16.0 [facility] ([place]) Comment on above: Performed By: #### C BC, ADIFF, ANEU, HBSAG, HCV1, HIV, PABOGEL, PABSGEL, RUBIS, RPR, VARIS #### [place] [id number] MCH (RBC) [Entitic mass] 29.5 pg Normal 27.0-33.0 [facility] ([place]) Comment on above: Performed By: #### C BC, ADIFF, ANEU, HBSAG, HCV1, HIV, PABOGEL, PABSGEL, RUBIS, RPR, VARIS #### [place] [id number] MCHC 34.0 G/dL Normal 32.0-36.0 [facility] ([place]) Comment on above: Performed By: #### C BC, ADIFF, ANEU, HBSAG, HCV1, HIV, PABOGEL, PABSGEL, RUBIS, RPR, VARIS #### [place] [address] MCV (RBC) [Entitic vol] 86.9 fL Normal 80.0-99.0 [facility] ([place]) Comment on above: Performed By: #### C BC, ADIFF, ANEU, HBSAG, HCV1, HIV, PABOGEL, PABSGEL, RUBIS, RPR, VARIS #### [place] [id number] Platelet 275 10 3/mcL Normal 150-450 [facility] ([place]) Comment on above: Performed By: #### C BC, ADIFF, ANEU, HBSAG, HCV1, HIV, PABOGEL, PABSGEL, RUBIS, RPR, VARIS #### [place] [id number] Platelet mean volume (Bld) [Entitic vol] 9.1 fL Normal 6.6-10.5 [facility] ([place]) Comment on above: Performed By: #### C BC, ADIFF, ANEU, HBSAG, HCV1, HIV, PABOGEL, PABSGEL, RUBIS, RPR, VARIS #### [place] [id number] RBC 3.87 10 6/mcL Low 4.10-5.30 [facility] ([place]) Comment on above: Performed By: #### C BC, ADIFF, ANEU, HBSAG, HCV1, HIV, PABOGEL, PABSGEL, RUBIS, RPR, VARIS #### [place] [id number] WBC 7.80 10 3/mcL Normal 4.50-10.80 [facility] ([place]) Comment on above: Performed By: #### C BC, ADIFF, ANEU, HBSAG, HCV1, HIV, PABOGEL, PABSGEL, RUBIS, RPR, VARIS #### [place] [address] UAon 12-10-2020 Color (U) Yellow Normal [facility] ([place]) Comment on above: Performed By: #### U A, UAMIC #### [place] [address] Glucose (U) [Mass/Vol] Negative Normal Negative [facility] ([place]) Comment on above: Performed By: #### U A, UAMIC #### [place] [address] Ketones Ql (U) 15 mg/dL Abnormal Neg-Trace [facility] ([place]) Comment on above: Performed By: #### U A, UAMIC #### [place] [address] UA Appear Turbid Abnormal Clear [facility] ([place]) Comment on above: Performed By: #### U A, UAMIC #### [place] [address] UA Blood Negative Normal Neg-Trace [facility] ([place]) Comment on above: Performed By: #### U A, UAMIC #### [place] [address] UA Leuk Est Moderate Abnormal Negative [facility] ([place]) Comment on above: Performed By: #### U A, UAMIC #### [place] [address] UA Nitrite Negative Normal Negative [facility] ([place]) Comment on above: Performed By: #### U A, UAMIC #### [place] [address] UA pH 6.5 Normal 5.0 - 8.0 [facility] ([place]) Comment on above: Performed By: #### U A, UAMIC #### [place] [address] UA Protein Negative Normal Negative [facility] ([place]) Comment on above: Performed By: #### U A, UAMIC #### [place] [address] UA Spec Grav 1.020 Normal 1.006-1.029 [facility] ([place]) Comment on above: Performed By: #### U A, UAMIC #### [place] [address] UA Specimen Type Not Given Normal [facility] ([place]) Comment on above: Performed By: #### U A, UAMIC #### [place] [address] UA Urobilinogen 1.0 E.U./dL Normal 0.2-1.0 [facility] ([place]) Comment on above: Performed By: #### U A, UAMIC #### [place] [address] Urobilinogen (U) [Mass/Vol] Negative Normal Neg-Trace [facility] ([place]) Comment on above: Performed By: #### U A, UAMIC #### [place] [address] UAMICon 12-10-2020 UA Amorphus 2+ /hpf Normal [facility] ([place]) Comment on above: Performed By: #### U A, UAMIC #### [place] [address] UA Bacteria 3+ /hpf Abnormal Negative [facility] ([place]) Comment on above: Performed By: #### U A, UAMIC #### [place] [address] UA CA Ox Crystal Trace Normal [facility] ([place]) Comment on above: Performed By: #### U A, UAMIC #### [facility] [address] [place] [address] UA Mucous 1+ /hpf Normal [facility] ([place]) Comment on above: Performed By: #### U A, UAMIC #### [facility] [address] [place] [address] UA RBC Rare Normal 0-2 [facility] ([place]) Comment on above: Performed By: #### U A, UAMIC #### [facility] [address] [place] [address] UA Squam Epithelial 3-5 Normal 0-20 [facility] ([place]) Comment on above: Performed By: #### U A, UAMIC #### [facility] [address] [place], [place] [id number] UA WBC 3-5 Normal 0-5 [facility] ([place]) Comment on above: Performed By: #### U A, UAMIC #### [facility] [address] [place] [address] Tru[place] 11-28-2020 EMERGENCY PHYSICIAN REPORT This is a preliminary report only, as the practitioner review and authentication has not occurred. [facility] ER PHYSICIAN ASSESSMENT DEMOGRAPHICS [employer] Patient: MINNIE SHIN Sex: F : 2000 Age: 20 yr Account No: [id number] Registration Date: 06:11/28/2020 Address: [address] [place] [address] Address: [place] [address] REGISTRATION ED Number: [id number] Mothers [place]odi Name: JENNIFER Marital Status: S Financial Class: [facility] TRIAGE Priority: 4 - Semi Urgent Complaint: Sore Throat Complaint: Body Aches Stated Complaint: Sore throat and body aches Arrival Date: 11/28/2020 06:32 Triage Date: 11/28/2020 06:44 Mode of Arrival: *Privately Owned Vehicle Transfer From: * Home WC: N Language: Turkmen Transport: Ambulatory/Walk In BED [facility] PATIENT NAME: ERIKAMINNIE Garcia [address] [facility] [address] [place] MEDICAL REC #: [id number] [place] [address] EMERGENCY DEPARTMENT REPORT EMERGENCY DEPARTMENT PHYSICIAN PROVIDERS TRIAGE HISTORY ALLERGIES Allergic To: No Known Allergies - 11/28/2020 06:45 RNSUMIT CURRENT MEDS Name: None 11/28/2020 06:46 RNSUMIT ILLNESS Illness: *None 11/28/2020 06:45 RNSUMIT PAST SURGERY HIST Surgery: ARM/SHOULDER 11/28/2020 06:45 RNSUMIT PAST SOCIAL HIST Social History: Lives with family or significant other 11/28/2020 06:45 ROX Social History: Alcohol - None 11/28/2020 06:45 RN-SC Social History: Smoker-None 11/28/2020 06:45 RN-SC Social History: Recreational Drugs - None 11/28/2020 06:45 RN-SC Social History: Denies Domestic Violence 11/28/2020 06:45 RN-SC Social History: Denies thoughts of self harm. 11/28/2020 06:45 RN-SC Social History: Have you traveled in the past month? Where DENIES 11/28/2020 06:45 RN-SC IMMUNIZATIONS Immunization: Flu Vaccine-yes 11/28/2020 06:45 RN-[address] [facility] PATIENT NAME: ERIKAMINNIE Garcia [address] [facility] [address] [place] MEDICAL REC #: [id number] [place] [address] EMERGENCY DEPARTMENT REPORT EMERGENCY DEPARTMENT PHYSICIAN NURSING ASSESSMENT ASSESSMENT NOTES TREATMENT MEDICATIONS IV I AND O VITALS VS-ROUTINE Time: 11/28/2020 06:44 B/P: 99/56 - Left Upper Arm - Sitting - Machine Pulse: 67 - Monitor Resp: 18 Sa02: 98 Room Air Temp: 98.50 F - Oral 11/28/2020 06:46 RN-SC VS-Pain Time: 11/28/2020 06:44 Pain Level: 8 11/28/2020 06:46 RN-SC VS-GCS Time: 11/28/2020 06:44 Visual: 4 Verbal: 5 Motor: 6 GCS Total: 15 11/28/2020 06:46 RN-SC VS-HT/WT Time: 11/28/2020 06:44 Ht: 157.4 cm Stated Weight: 46.7 kg Actual 11/28/2020 06:46 RN-SC VS-Visual Time: 11/28/2020 06:44 11/28/2020 06:46 RN-SC VS-FHT Time: 11/28/2020 06:44 11/28/2020 06:46 RN-SC VS-Notes Time: 11/28/2020 06:44 MAP = 72 11/28/2020 06:46 RN-SC ORDERS LBE 11/28/2020 09:06 N/A Ordered: 11/28/2020 09:[address] [facility] PATIENT NAME: MINNIE SHIN [address] [facility] [address] [place] MEDICAL REC #: [id number] [place] [address] EMERGENCY DEPARTMENT REPORT EMERGENCY DEPARTMENT PHYSICIAN DISCHARGE Diagnosis: LWT 0 11/28/2020 09:06 Disposition: Time: 11/28/2020 19:02 Discharge Time: 11/28/2020 19:02 Type: LBE Condition: LBE pt came to the window and said she was leaving Referral: 11/28/2020 09:06 KMF PRESCRIPTIONS CHARGES SIGNATURE Dorinda Gilbert RN [facility] Allen Campbell RN RN-SC [facility] PATIENT NAME: MINNIE SHIN [address] [facility] [address] [place] MEDICAL REC #: [id number] [place] [address] EMERGENCY DEPARTMENT REPORT EMERGENCY DEPARTMENT PHYSICIAN [facility] 11-07-2020 EMERGENCY PHYSICIAN REPORT This is a preliminary report only, as the practitioner review and authentication has not occurred. [facility] ER PHYSICIAN ASSESSMENT DEMOGRAPHICS [employer] Patient: MINNIE SHIN Sex: F : 2000 Age: 20 yr Account No: [id number] Registration Date: 01:11/07/2020 Address: [address] [place] [address] [address] [place] [address] REGISTRATION ED Number: [id number] Mothers [place]odi Name: JENNIFER Marital Status: S Financial Class: [facility] TRIAGE Priority: 3 - Urgent Complaint: Abdominal Pain Complaint: Fall Complaint: Stated Complaint: APPROX 5-6 WEEKS PER HOME TEST () - FELL OFF A BED TONIGHT ONTO FLOOR - C/O LEFT-SIDED ABDOMINAL PAIN - NO VAGINAL BLEEDING OR OTHER COMPLAINTS Arrival Date: 11/07/2020 01:18 Triage Date: 11/07/2020 01:42 Mode of Arrival: *Privately Owned Vehicle Transfer From: * Home WC: N Language: Turkmen Transport: Ambulatory/Walk In [facility] PATIENT NAME: MINNIE SHIN [address] [place] MEDICAL REC #: [id number] [place] [address] EMERGENCY DEPARTMENT REPORT EMERGENCY DEPARTMENT PHYSICIAN BED E35 In: 11/07/2020 11:06:13 11/07/2020 11:06:13 MCS E35 (Removed From) Out: 11/07/2020 11:07:13 11/07/2020 11:07:13 MCS PROVIDERS TRIAGE HISTORY ALLERGIES Allergic To: No Known Allergies - 11/07/2020 01:50 JBK CURRENT MEDS Name: None 11/07/2020 01:50 JBK ILLNESS Illness: *None 11/07/2020 01:50 JBK PAST SURGERY HIST Surgery: ARM/SHOULDER 11/07/2020 01:50 JBK PAST SOCIAL HIST Social History: Lives with family or significant other 11/07/2020 01:50 JBK Social History: Alcohol - None 11/07/2020 01:50 JBK Social History: Smoker-None 11/07/2020 01:50 JBK Social History: Recreational Drugs - None 11/07/2020 01:50 JBK Social History: Denies Domestic Violence 11/07/2020 01:50 JBK Social History: Denies thoughts of self harm. 11/07/2020 01:[address] [facility] PATIENT NAME: WANMAYAMINNIE Tylor [facility] [address] [place] MEDICAL REC #: [id number] [place] [address] EMERGENCY DEPARTMENT REPORT EMERGENCY DEPARTMENT PHYSICIAN Social History: Have you traveled in the past month? 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 Trauma Evaluation Called @ 0150 11/07/2020 01:50 JBK MEDICATIONS IV I AND O VITALS VS-ROUTINE Time: 11/07/2020 01:42 B/P: 108/55 - Right Upper Arm - Sitting - Machine Pulse: 88 - Monitor Resp: 18 Sa02: 100 Room Air Temp: 98.00 F - Oral 11/07/2020 01:50 JBK VS-Pain Time: 11/07/2020 01:42 Pain Level: 8 11/07/2020 01:[address] [facility] PATIENT NAME: MINNIE SHIN [facility] [address] [place] MEDICAL REC #: [id number] [place] [address] EMERGENCY DEPARTMENT REPORT EMERGENCY DEPARTMENT PHYSICIAN VS-GCS Time: 11/07/2020 01:42 Visual: 4 Verbal: 5 Motor: 6 GCS Total: 15 11/07/2020 01:50 JBK VS-HT/WT Time: 11/07/2020 01:42 Ht: 152.4 cm Stated Weight: 45.4 kg Stated 11/07/2020 01:50 JBK VS-Visual Time: 11/07/2020 01:42 11/07/2020 01:50 JBK VS-FHT Time: 11/07/2020 01:42 11/07/2020 01:50 JBK VS-Notes Time: 11/07/2020 01:42 MAP 77. 11/07/2020 01:50 JBK ORDERS LBE 11/07/2020 11:21 N/A Ordered: 11/07/2020 11:21 By Dorinda Gilbert DISCHARGE Diagnosis: LWT 0 11/07/2020 11:21 Disposition: Time: 11/07/2020 11:06 Discharge Time: 11/07/2020 11:06 Type: LBE Condition: LBE Referral: 11/07/2020 11:21 KMF PRESCRIPTIONS CHARGES SIGNATURE Dorinda Gilbert RN KMMichael DEMPSEY RN MCS JESSICA JETT RN JBK [facility] PATIENT NAME: IXC (more content not included)... Normal [facility] [place] Ferritinon 08-30-2019 Ferritin [Mass/Vol] 7 ng/mL Low 12-156 [facility] Comment on above: Order Comment: With differential.Is this specimen being sent to an external lab?->NoTIBC will not be run.Is this specimen being sent to an external lab?->No Performed By: #### F LUAG #### [address] [address] Complete Blood Counton 08-28 Differential Complete Automated Normal [facility] Comment on above: Order Comment: With differential.Is this specimen being sent to an external lab?->NoTIBC will not be run.Is this specimen being sent to an external lab?->No Performed By: #### F LUAG #### [address] [address] Basophils/100 WBC (Bld) 0.60 % Normal 0.00-1.00 [facility] Comment on above: Order Comment: With differential.Is this specimen being sent to an external lab?->NoTIBC will not be run.Is this specimen being sent to an external lab?->No Performed By: #### F LUAG #### [address] [address] Eosinophils/100 WBC (Bld) 3.10 % High 0.00-3.00 [facility] Comment on above: Order Comment: With differential.Is this specimen being sent to an external lab?->NoTIBC will not be run.Is this specimen being sent to an external lab?->No Performed By: #### F LUAG #### [address] [address] Erythrocyte distribution width (RBC) [Ratio] 12.7 % Normal 0.0-14.4 [facility] Comment on above: Order Comment: With differential.Is this specimen being sent to an external lab?->NoTIBC will not be run.Is this specimen being sent to an external lab?->No Performed By: #### F SUMMER #### [address] [address] Hematocrit (Bld) [Volume fraction] 33.6 % Low 37.0-46.0 [facility] Comment on above: Order Comment: With differential.Is this specimen being sent to an external lab?->NoTIBC will not be run.Is this specimen being sent to an external lab?->No Performed By: #### F SUMMER #### [address] [address] Hemoglobin (Bld) [Mass/Vol] 11.1 g/dL Low 12.0-15.0 [facility] Comment on above: Order Comment: With differential.Is this specimen being sent to an external lab?->NoTIBC will not be run.Is this specimen being sent to an external lab?->No Performed By: #### F LUAG #### [address] [id number] Immature granulocytes/100 WBC (Bld) 0.40 % Normal [facility] Comment on above: Order Comment: With differential.Is this specimen being sent to an external lab?->NoTIBC will not be run.Is this specimen being sent to an external lab?->No Result Comment: Alis ture Granulocyte Percent includes promyelocytes, myelocytes, and metamyelocytes. IG% > 1.0 indicates a left shift is present. With automated differentials, bands are included in the neutrophil count and not in the Immature Granulocyte Percent. Performed By: #### F WALTERAG #### [address] [address] Lymphocytes/100 WBC (Bld) 28.4 % Normal 25.0-45.0 [facility] Comment on above: Order Comment: With differential.Is this specimen being sent to an external lab?->NoTIBC will not be run.Is this specimen being sent to an external lab?->No Performed By: #### F LUAG #### [address] [id number] MCH (RBC) [Entitic mass] 29.1 pg Normal 25.0-35.0 [facility] Comment on above: Order Comment: With differential.Is this specimen being sent to an external lab?->NoTIBC will not be run.Is this specimen being sent to an external lab?->No Performed By: #### F LUAG #### [address] [address] MCHC (RBC) [Mass/Vol] 33.0 % Normal 31.0-37.0 [facility] Comment on above: Order Comment: With differential.Is this specimen being sent to an external lab?->NoTIBC will not be run.Is this specimen being sent to an external lab?->No Performed By: #### F LUAG #### [address] [address] MCV (RBC) [Entitic vol] 88.0 fL Normal 78.0-96.0 [facility] Comment on above: Order Comment: With differential.Is this specimen being sent to an external lab?->NoTIBC will not be run.Is this specimen being sent to an external lab?->No Performed By: #### F LUAG #### [address] [id number] Monocytes/100 WBC (Bld) 6.40 % High 3.00-6.00 [facility] Comment on above: Order Comment: With differential.Is this specimen being sent to an external lab?->NoTIBC will not be run.Is this specimen being sent to an external lab?->No Performed By: #### F SUMMER #### [address] [address] Neutrophils (Bld) [#/Vol] 4.1 10*3/uL Normal 1.8-7.5 [facility] Comment on above: Order Comment: With differential.Is this specimen being sent to an external lab?->NoTIBC will not be run.Is this specimen being sent to an external lab?->No Performed By: #### F SUMMER #### [address] [id number] Neutrophils/100 WBC (Bld) 61.1 % Normal 34.0-64.0 [facility] Comment on above: Order Comment: With differential.Is this specimen being sent to an external lab?->NoTIBC will not be run.Is this specimen being sent to an external lab?->No Performed By: #### F SUMMER #### [address] [address] Nucleated RBC/100 WBC (Bld) [Ratio] 0.0 % Normal -1.0-0.0 [facility] Comment on above: Order Comment: With differential.Is this specimen being sent to an external lab?->NoTIBC will not be run.Is this specimen being sent to an external lab?->No Performed By: #### F SUMMER #### [address] [id number] Platelet mean volume (Bld) [Entitic vol] 11.7 fL Normal [facility] Comment on above: Order Comment: With differential.Is this specimen being sent to an external lab?->NoTIBC will not be run.Is this specimen being sent to an external lab?->No Result Comment: MPV is platelet range and age dependent Performed By: #### F SUMMER #### [address] [id number] Platelets (Bld) [#/Vol] 230 10*3/uL Normal 150-450 [facility] Comment on above: Order Comment: With differential.Is this specimen being sent to an external lab?->NoTIBC will not be run.Is this specimen being sent to an external lab?->No Performed By: #### F SUMMER #### [address] [address] RBC (Bld) [#/Vol] 3.82 10E12/L Low 4.10-4.80 [facility] Comment on above: Order Comment: With differential.Is this specimen being sent to an external lab?->NoTIBC will not be run.Is this specimen being sent to an external lab?->No Performed By: #### F SUMMER #### [address] [address] WBC (Bld) [#/Vol] 6.8 10*3/uL Normal 4.5-13.0 [facility] Comment on above: Order Comment: With differential.Is this specimen being sent to an external lab?->NoTIBC will not be run.Is this specimen being sent to an external lab?->No Performed By: #### F SUMMER #### [address] [address] Progress Noteon 08-29-2019 Merchandiser Authentication Interface Message Text Patient ID: Lalo Shin is a 19 y.o. female. Her chief complaint(s) include: 19 YEAR WELL CHILD Assessment 1. Encounter for routine child health examination without abnormal findings 2. Exercise counseling 3. Encounter for dietary counseling and surveillance 4. Anemia, unspecified type Plan Lalo was seen today for 19 year well child. Diagnoses and all orders for this visit: Encounter for routine child health examination without abnormal findings - Behavioral/Emotional Assessment w Score - PHQ-9 - Health Risk Assessment - CRAFFT - Finger/Heel Stick - POCT Hemoglobin Female Exercise counseling Encounter for dietary counseling and surveillance Anemia, unspecified type - Venipuncture - Complete Blood Count with Diff (Clinic Collect) - Ferritin (Clinic Collect) Return in about 1 year (around 08/28/2020) for well check. 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 Lalo Shin is a 19 y.o. female patient. Behavioral/Emotional Assessment w Score - PHQ-9 Performed by: Verona Stovall APRN-CNP Authorized by: Verona Stovall APRN-CNP PHQ-9 See PHQ9 Flowsheet Feeling down, depressed, irritable or hopeless: Not at all Little interest or pleasure in doing things: Not at all Trouble falling or staying sleep, or sleeping too much: Not at all Poor appetite, weight loss, or overeating: Several days Feeling tired or having little energy: Not at all Feeling bad about yourself - or feeling that you are a failure, or have let yourself or your family down: Not at all Trouble concentrating on things, like school work, reading or watching TV: Not at all Moving or speaking so slowly that other people could have noticed. Or the opposite - being so fidgety or restless that you were moving around a lot more than usual: Not at all Thoughts that you would be better off , or of hurting yourself in some way: Not at all In the past year have you felt depressed or sad most days, even if you felt OK sometimes?: No If you are experiencing any of the problems on this form, how difficult have these problems made it for you to do your work, take care of things at home or get along with other people?: Not difficult at all Has there been a time in the past month when you have had serious thoughts about ending your life?: No Have you ever, in your whole life, tried to kill yourself or made a suicide attempt?: No PHQ-9 Total Score: 1 Total Score Value: 0-4 No or Minimal See Scanned Document Electronically signed by: GLENIS Lizama Subjective She is accompanied by her mother. The history is limited by language barrier. A clinical nursing instructor was used (PCP - Citizen [place], for mother). 19 YEAR WELL CHILD Home: Roselena eats meals with family, has an adult to turn to for help and is permitted and able to make independent decisions. Lalo has no home risk identified. (Doing well in school; completed 11th grade online during pandemic; has AP classes). Education: Lalo attends vocational school and is doing well. Eating: Lalo eats regular meals including fruits and vegetables and eats breakfast. Drugs: Lalo does not use tobacco, does not use drugs and does not use alcohol. Safety: Lalo has a violence free home. Sex: The patient has never had a sexual partner. Suicidality: Lalo has ways to cope with stress and displays self-confidence. Lalo has no problems with sleep, does not have mood swings and has no mental health risk identified. PHQ-9 Score: 1 Menstruation Last Menstrual period: now Menstruation: regular periods and heavy periods Output Urine and Stool Pattern: Urine and Stool Pattern: Normal stool pattern, normal urine pattern. Stool Consistency: soft Sleep Sleeping Difficulty: no difficulty sleeping Hours of sleep at a time: 10 Teen Anticipatory Guidance The following anticipatory guidance was reviewed during the visit: Nutrition: limit junk food/fast food and soft drinks. Social: avoid or limit screen time. Health: age appropriate dental care, don't use tobacco/ alcohol/ drugs/ diet pills/ inhalants, learn how to say 'no' to sex, contraception/practice safe sex/ use condoms and self breast exam. Screenings Previous Vaccine Reactions: No. Hearing Vision Concerns: The caregiver has no concerns about the patient's hearing. The caregiver has no concerns about the patient's vision. (Had hearing/vision screens at school). Hyperlipidemia Concerns: Negative Hyperlipidemia Screen Concerns: no Hyperlipidemia Risk Factors Primary Care Review of Systems Objective Vital Signs 08/29/19 1555 BP: 117/66 Pulse: 72 Weight: 47.8 kg Height: (!) 150.5 cm Body mass index is 21.1 kg/m . Physical Exam Constitutional: Vital signs are normal. She appears well, well-developed and well-nourished. She is active and cooperative. No distress. HENT: Head: Atraumatic. Ears: Right Ear: Tympanic membrane and external ear normal. Left Ear: Tympanic membrane and external ear normal. Nose: Nose normal. Mouth/Throat: Mucous membranes are moist. Dentition is normal. Oropharynx is clear. Eyes: Conjunctivae and EOM are normal. No strabismus. Pupils are equal, round, and reactive to light. Neck: Normal range of motion. Neck supple. Thyroid normal. Cardiovascular: Normal rate, regular rhythm, S1 normal and S2 normal. Pulses are palpable. Heart murmur not heard. Pulmonary/Chest: Breath sounds normal. No respiratory distress. Exhibits no deformity. Breast exam normal. Jose Alejandro stage (breast) is 5. Abdominal: Soft. Bowel sounds are normal. She exhibits no distension and no mass. There is no hepatosplenomegaly. There is no abdominal tenderness. Genitourinary: Jose Alejandro stage (genital) is 5. Normal female external genitalia. Musculoskeletal: Normal range of motion. Back: She exhibits no scoliosis. Neurological: She is alert. She has normal strength. She exhibits normal muscle tone. Gait normal. Skin: Skin is warm and not pale. Findings: No rash. Vitals reviewed: Blood pressure 117/66, pulse 72, height (!) 150.5 cm, weight 47.8 kg. Last Result POCT Hemoglobin Female Collection Time: 08/29/19 4:45 PM Result Value Ref Range POCT Hemoglobin, Blood Female 11.7 (A) 12 - 15 g/dl Normal [facility] Merchandiser Authentication Interface Message Text Lalo Shin is a 19 y.o. female patient. Health Risk Assessment - CRAFFT Authorized by: Verona Stovall APRN-BRADLEY SANTO Results: 1. Drink more than a few sips of beer, wine, or any drink containing alcohol? Put 0 if none.: 0 2. Use any marijuana (weed, oil, or hash by smoking, vaping, or in food) or synthetic marijuana (like K2, Spice)? Put 0 if none.: 0 3. Use anything else to get high (like other illegal drugs, prescription or gsaz-dgx-hrafkiv medications, and things that you sniff, colunga, or vape)? Put 0 if none.: 0 4. Use any tobacco or nicotine products (for example, cigarettes, e-cigarettes, hookahs or smokeless tobacco)?: 0 5. Have you ever ridden in a CAR driven by someone (including yourself) who was high or had been using alcohol or drugs?: No Comments: Score of 0; no concerns. Electronically signed by: Verona Stovall APRN-MERCHANDISE DISTRIBUTOR Normal [facility] EMERGENCY DEPARTMENT REPORTo n 05-15-2019 [place]ER[place] [address] HEALTH INFORMATION MANAGEMENT EMERGENCY DEPARTMENT REPORT Patient: MINNIE KHAN ELLEN K Paty [id number] 02 18 F Status: DEP ER ED Date of Service: 04/15/19 HISTORY OF PRESENT ILLNESS: This is a 18-year-old female, who I literally just discharged a short time ago from the ED. She had been turned over to me by Dr. Ortega. He had done a CT of the abdomen and pelvis, it was unrevealing and so he then done an ultrasound, which was pending at the time of his endorsement of the patient to me. The ultrasound did not show anything of significance. The patient was then comfortable as I reexamined her, so I discharged her home. She went home and ate, then she had of severe recurrence of the pain and she has now returned to the emergency department screaming on the ambulance gurney. She is crying. I do not feel that this is behavioral by any means as patient appears to be in severe pain. She has had no meds. The only thing she has had is something to eat when she got home. She has not been vomiting. She has not had development of a fever in the interim. She does not have any pain in her chest. She has the pain in her abdomen as previously same place, only worse in the right mid abdomen. She is denying any interim change with bowel or urine output. Denies any other complaints and certainly has not had any trauma since she just left here. So in the emergency department course, the automobile service writer was not immediately available, but I was able to reassure the patient that we would immediately treat her pain and she was certainly in extremis and I just communicated with her through the professional platform loader a short time earlier. We went ahead and obtained IV access and began treating her for her pain. PHYSICAL EXAMINATION: VITAL SIGNS: Her blood pressure was 125/103, temp 98, heart rate 117, respiratory rate 20, pulse ox 100%. GENERAL: She is writhing on the bed, crying, alert and oriented. Cooperative. Well- developed, well-nourished, no signs of trauma. HEENT: Head is atraumatic, normocephalic. No scleral icterus. No nasal drainage. Oral mucosa pink and moist. NECK: Supple. CARDIOVASCULAR: Regular. LUNGS: Breath sounds clear. ABDOMEN: Very, very tender in the right side, upper and lower at this point. She is experiencing flank tenderness as well. EXTREMITIES: Intact x4 without clubbing, cyanosis, edema. NEUROLOGIC: I do not appreciate focal deficits. SKIN: Warm and dry. LABORATORY DATA: I reconsider the possibility of a torsion, sent her back to ultrasound just to check one more time to see if there is any evidence now of torsion. This was negative. I also did a retroperitoneal ultrasound looking for uropathy, this is a negative study as well. I obtained labs, now her white count is 7, H and H 12 and 36, platelet count 304,000. I did not repeat her hCG as that was negative previously. Her lactic acid that was 3.5. CRP was 0.33. Urine was still negative. I felt the patient certainly requires surgical eval at [facility]. I spoke with Dr. Tiwari and the patient, transport was arranged. IMPRESSION: Intractable abdominal pain, lactic acidosis. The patient left our facility with improved vital signs and pain had been responsive to the medications administered here. Report#: Dict ID [id number] / Int ID [id number] 05/24/19 0725 KHALIDA MATHUR D.O. cc: KHALIDA MATHUR D.O. << Signature on File>> Reported By: KHALIDA MATHUR D.O. Signed By: KHALIDA MATHUR D.O. Tests performed at: [address] [address] Normal [facility] Discharge Summaryon 04-17-19 Merchandiser Authentication Interface Message Text Discharge/Transfer Summary Name: Lalo Shin MR#: [id number] : 2000 Room #: 6225/01 Age/Sex: 18 y.o. female Admit Date: 04/15/2019 Admitting: No admitting provider for patient encounter. Discharge Date: 04/17/2019 Discharged from: [facility] Attending: Reinaldo Rob MD Final Diagnosis: Coronavirus infection Significant Findings (Problem List): Active Hospital Problems Diagnosis Coronavirus infection Abdominal pain Resolved Hospital Problems No resolved problems to display. Reason for Hospitalization: Abdominal pain Discharge Condition: Good Hospital Course (Care, treatment and services provided): Brief Narrative Hospital Course: Lalo Shin is a 18 y.o. female with dysmenorrhea, metrorrhagia ( refuses , and history of L ovarian cyst (2017) who presented with RLQ abdominal pain x1 week and lower extremity pain. 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 CT abdomen and pelvis showed no bowel obstruction, and appendix was incompletely visualized. Ultrasound pelvis and abdomen showed no ovarian torsion, normal examination of the kidneys, no mass or hydronephrosis. Patient was transferred to the [facility] ED for further work-up and management. RFA was positive for coronavirus.Surgery was consulted and did not recommend surgical intervention. She was admitted to the hospitalist service. She was treated with a migraine cocktail for headache that resolved. She complained of pain on her calves, abdomen , bottoms however her pain pattern did not fit any organic disease. It was also noted that she did not have tenderness while distracted and hence inorganic cause of pain was also considered. PT was consulted for lower extremity pain and recommended outpatient follow-up. CK was found to be normal. Patient able to ambulate on her own with minimal pain on day of discharge. Psychology was also consulted to assist the patient with pain management techniques as pain. Pain was well-controlled with PO pain medication, and patient was also able to tolerate PO intake. Clinical picture was most consistent with viral syndrome secondary to Coronavirus . Patient was discharged home and advised to follow up with her PCP in 2-3 days. She was prescribed Pepcid for homegoing, as she complained of intermittent globus sensation with swallowing, consistent with acid reflux. Physical Exam on Day of Discharge: General: Awake, age appropriate activities for development. No acute distress. HEENT: Normocephalic and atraumatic. No ocular discharge, no nasal discharge; moist mucous membranes. L tonsil 3+, R tonsil 1+. Cardiac: Regular rhythm, rate appropriate for age. Normal heart sounds. No murmurs, rubs or gallops. Pulses symmetrical, brisk refill. Respiratory: Respirations are easy and non-labored, good air exchange bilaterally. No rales, rhonchi, or wheezes. Abdomen: Abdomen soft, non-distended with normal bowel sounds. Tender to palpation RLQ. No rebound tenderness, rigidity, or guarding. Negative Villanueva's. Neurologic: alert orientated, CN 2-12 intact, god strength bilateral upper and lower extremities , reflexes normal, sensation intact Symmetric limb movements, Skin: Skin is warm and dry. 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 What language do you prefer to learn in?: Citizen [place] Over the phone: No Agency name : Other (comment)(in demand carrie ) Forming Mill Operator ID #: [id number] Language provided: Other(comment)(quiche ) Purpose of communication: Other (comment)(history and physical with dr baker) Electronic Devices Used: Yes Agency name: [facility] Language provided: Other(comment) Purpose of communication: Rounds Assistive Devices: iPad/tablet Treatments and procedures with outcomes: No significant invasive procedures Immunizations (administered this admission): None Significant Imaging Results: CT Outside Study Final Result IMPRESSION: 1. Air-filled appendix with no convincing findings of appendicitis. 2. No bowel obstruction. 3. Mild fullness of the renal pelves, nonspecific. No urinary tract calcification or obstructive hydronephrosis. This report has been created using voice recognition software US Abdomen Limited Final Result IMPRESSION: 1. Non-visualized appendix. No secondary findings of inflammatory process. Appy-Score 3. 2. The outside CT abdomen/pelvis from yesterday evening has become available. This shows borderline size (6-7 mm) mostly air-filled appendix. Acute appendicitis is felt to be unlikely on prior outside CT. Results discussed with Dr. Blue at the time of interpretation with verbal acknowledgment of findings. Mignon STERLING et al., Development and validation of an ultrasound scoring system for children with suspected acute appendicitis, Pediatr Radiol (2015) 45:4085-2800. This report has been created using voice recognition software US Duplex Abdomen Pelvis Complete Final Result IMPRESSION: Normal ultrasound and doppler evaluation of the uterus and adnexa. This report has been created using voice recognition software US Pelvis non ob complete Final Result IMPRESSION: Normal ultrasound and doppler evaluation of the uterus and adnexa. This report has been created using voice recognition software US Abdomen Limited Final Result IMPRESSION: Non-visualized appendix. No secondary findings of inflammatory process. Appy-Score 3. Mignon STERLING et al., Development and validation of an ultrasound scoring system for children with suspected acute appendicitis, Pediatr Radiol (2015) 45:3785-0061. This report has been created using voice recognition software Pending Test Results and Tests to Obtain as Outpatient: In-Process Results No orders found from 03/19/2019 to 04/18/2019. Preliminary Results Date and Time Order Name Sensitivity Status Description Specimen ID Source 04/16/2019 1343 Strep culture Preliminary [id number] Disposition: She was discharged to home. Discharge Medications: She did have significant changes to their home medications (see below) Medication List START taking these medications Morning Afternoon Evening Bedtime As Needed acetaminophen 500 MG tablet Take 1 Tab (500 mg) by mouth every 6 hours as needed for Pain for up to 30 days Commonly known as: TYLENOL [ ] [ ] [ ] [ ] [ ] famotidine 20 MG tablet Take 1 Tab (20 mg) by mouth nightly at bedtime Commonly known as: PEPCID [ ] [ ] [ ] [ ] [ ] Ibuprofen 400 MG tablet Take 1 Tab (400 mg) by mouth every 6 hours as needed for Pain for up to 30 days Commonly known as: MOTRIN [ ] [ ] [ ] [ ] [ ] CONTINUE taking these medications which HAVE NOT changed at this visit Morning Afternoon Evening Bedtime As Needed benzoyl peroxide 2.5 % cream Apply to affected area 2 times daily [ ] [ ] [ ] [ ] [ ] MULTIVITAMINS PLUS IRON CHILD 18 MG Chew Take 1 Tab by mouth daily [ ] [ ] [ ] [ ] [ ] Where to Get Your Medications These medications were sent to [facility] [address] [id number] famotidine 20 MG tablet Information about where to get these medications is not yet available Ask your nurse or doctor about these medications acetaminophen 500 MG tablet Ibuprofen 400 MG tablet Discharge Instructions: Discharge Orders Future Labs/Procedures Expected by Expires Activity as tolerated As directed PT Evaluate and Treat As directed 04/17/2020 Questions: Reason for Therapy: Use precautions with: Special instructions: How many weeks of therapy are needed: How many sessions per week of therapy are recommended: Weight bearing: Instructions/Follow Up Future Labs/Procedures Expected by Expires Follow Up with As directed Comments: Your primary care doctor, Verona Stovall APRN-CNP, in 2-3 days. Call [phone] sooner if questions or concerns. [place] State Law: Child Safety Seat Instructions As directed Comments: It is the [facility] Law that every child under 8 years old must ride in an appropriate child safety seat unless the child is 4'9 or taller. Every child from 8-15 years old who is not secured in a child safety seat must be secured in the vehicle's seat belt. [facility] advises that all motor vehicle passengers be restrained. Patient Instructions As directed Comments: It was a pleasure taking care of Lalo. She is ready to go home! Lalo was diagnosed with coronavirus during her admission, which likely contributed to her symptoms. Please call the physical therapy office to schedule an outpatient follow up appointment. Lalo should continue to take the Pepcid every day for abdominal pain. She can also take tylenol and/or ibuprofen as needed for abdominal pain or headache. Continue to work on the relaxation strategies that the psychologist went over today. Signed: Vidhi Lim DO [facility] PGY-1 04/17/19 5:50 PM Hospital Medicine Fellow Attestation Note: I personally performed ignacio portions of the history and physical examination of this patient and discussed the management plan with the resident. I reviewed the resident's note and agree with the documentation unless noted by or with addition. The findings and the plan of care are set forth above. Signed by: Carli Beauchamp DO Pediatric Hospital Medicine Fellow, PGY-4 Pager # [phone] 04/17/2019 5:55 PM ATTENDING'S ADDENDUM I have seen and examined the patient with the residents and rounding team this morning. I have confirmed ignacio portions of the history and performed pertinent physical examination.I have reviewed residents documentation and agree with it. Modifications have been made to the note with additional documentation as marked in bold or . The medical decision making was done together with the resident and is as documented in the resident's note. Reinaldo Rob Pager:[phone] Pediatric Hospitalist Normal [facility] Creatine Kinaseon 04-16-2019 CK [Catalytic activity/Vol] 84 U/L Normal 24-195 [facility] Comment on above: Performed By: #### C K ####[address] [phone] Fecal Leukocyte Stainon 03-22 Fecal Leukocyte Stain Fecal Leukocyte Stain: No white blood cells seen. Source: STOOL Collected: 04/15/19 23:01 Site: Received : 04/16/19 01:03 Fecal Leukocyte Stain FINAL 04/16/19 08:14 No white blood cells seen. Normal [facility] Comment on above: Performed By: #### L EUKO ####[address] [phone] Gastro-Intestinal (GI) Panel FilmArrayon 04-16-2019 Gastro-Intestinal (GI) Panel FilmArray Gastro-Intestinal (GI) Panel FilmArray: - Source: STOOL Collected: 04/15/19 23:01 Site: Received : 04/16/19 01:03 Gastro-Intestinal (GI) Panel FilmArrFINAL 04/16/19 11:47 - NEGATIVE: No organisms were detected. - - - - - - - - - - - - - - - - - - - - - - - - - - - - - - - COMMENT-The Gastro-Intestinal (GI) Film Array Panel detects DNA or RNA for the following organisms: BACTERIAL: Campylobacter Plesiomonas shigelloides Salmonella Yersinia enterocolitica Vibrio Vibrio cholerae DIARRHEAGENIC E COLI/SHIGELLA: Shiga-like toxin-producing E. coli (STEC) stx1/stx2 E. coli 0157 Shigella/Enteroinvasive E. coli (EIEC) PARASITIC TARGETS: Cryptosporidium Cyclospora cayetanensis Entamoeba histolytica Giardia lamblia VIRAL TARGETS: Adenovirus F40/41 Astrovirus Norovirus GI/GII Rotavirus A Sapovirus Normal [facility] Comment on above: Performed By: #### G FILM ####[address], [place] [phone] Group A Strep Agon 0 Group A Strep Ag Group A Strep Ag: Gr oup A Strep Ag: NEGATIVE Source: THRSW Collected: 04/16/19 12:21 Site: Received : 04/16/19 12:31 Group A Strep Ag FINAL 04/16/19 13:13 Group A Strep Ag: NEGATIVE - Color Immunochromatographic Assay - Normal Result: Negative Normal [facility] Comment on above: Performed By: #### S TRPA ####[address] [phone] Strep Cultureon 04-16-2019 Strep Culture Strep Culture: No Be ta hemolytic Streptococci isolated. Source: THRSW Collected: 04/16/19 12:21 Site: Received : 04/16/19 13:43 Strep Culture FINAL 04/18/19 10:48 No Beta hemolytic Streptococci isolated. Normal [facility] Comment on above: Performed By: #### S TREP ####[address] [phone] C-REACTIVE PROTon 04-15-2019 C-REACTIVE PROT 0.33 mg/dL Normal 0.00-0.50 [facility] Comment on above: Result Comment: STAT ED NORMAL RANGE IS FOR ADULTS ONLY. NO NORMAL RANGE HAS BEEN ESTABLISHED FOR CHILDREN. Performed By: #### L 200.4105 #### [facility] [address] [place] [id number] C. trachomatis/GC PCR Panel on GeneXperton 04-15-2019 C. trachomatis/GC PCR Panel on GeneXpert C. trachomatis PCR on GeneXpert: NEGATIVE-Chlamydia trachomatis DNA: NOT DETECTED. Source: URINE Collected: 04/15/19 21:32 Site: Received : 04/15/19 21:41 C. trachomatis PCR on GeneXpert FINAL 04/16/19 12:11 NEGATIVE-Chlamydia trachomatis DNA: NOT DETECTED. - GC PCR on GeneXpert FINAL 04/16/19 12:11 NEGATIVE-Neisseria gonorrhea DNA: NOT DETECTED. - Method: DNA detection by RT PCR on a GeneXpert analyzer. - NOTE: This Amplified DNA Assay should not be used for the evaluation of suspected sexual abuse or for other medico-legal indications. - Screening urine specimens for Chlamydia trachomatis and Neisseria gonorrhoeae using nucleic acid amplification is an accurate and sensitive method compared to standard techniques of detection of these pathogens. Because the pathogen is diluted in urine, it is somewhat less sensitive than a direct swab specimen evaluated by nucleic acid amplification techniques. Normal [facility] Comment on above: Performed By: #### C [facility] ####[facility] [address] [phone] CBCon 04-15-2019 Basophils (Bld) [#/Vol] 0.00 x10(3) Normal 0.00-0.10 [facility] Comment on above: Performed By: #### L 200.4105 #### ML [facility] [address] [place] [address] [phone] Basophils/100 WBC (Bld) 0.3 % Normal 0.0-1.0 [facility] Comment on above: Performed By: #### L 200.4105 #### ML [facility] [address] [place] [address] [phone] Eosinophils (Bld) [#/Vol] 0.20 x10(3) Normal 0.00-0.54 [facility] Comment on above: Performed By: #### L 200.4105 #### ML [facility] [address] [place] [address] 43875 Eosinophils/100 WBC (Bld) 2.3 % Normal 0.5-4.9 [facility] Comment on above: Performed By: #### L 200.4105 #### ML [facility] [address] [place] [address] [phone] Erythrocyte distribution width (RBC) [Ratio] 13.2 % Normal 12.5-15.7 [facility] Comment on above: Performed By: #### L 200.4105 #### ML [facility] [address] [place] [address] 59342 Hematocrit (Bld) [Volume fraction] 36.4 % Normal 36.0-48.0 [facility] Comment on above: Performed By: #### L 200.4105 #### ML - [facility] [address] [place] [address] 12693 Hemoglobin (Bld) [Mass/Vol] 12.0 g/dL Normal 12.0-16.0 [facility] Comment on above: Performed By: #### L 200.4105 #### [facility] - [facility] [address] [place] [address] 80177 Lymphocytes (Bld) [#/Vol] 3.10 x10(3) Normal 1.00-3.50 [facility] Comment on above: Performed By: #### L 200.4105 #### ML [facility] [address] [place] [address] 99223 Lymphocytes/100 WBC (Bld) 39.5 % Normal 16.0-48.0 [facility] Comment on above: Performed By: #### L 200.4105 #### ML [facility] [address] [place] [address] 29953 MCH (RBC) [Entitic mass] 28.6 pg Normal 28.5-32.9 [facility] Comment on above: Performed By: #### L 200.4105 #### ML [facility] [address] [place] [address] 03999 MCHC (RBC) [Mass/Vol] 32.9 g/dL Low 33.0-36.0 [facility] Comment on above: Performed By: #### L 200.4105 #### ML [facility] [address] [place] [address] 70869 MCV (RBC) [Entitic vol] 86.7 fL Normal 80.0-99.0 [facility] Comment on above: Performed By: #### L 200.4105 #### ML [facility] [address] [place] [address] 86202 Monocytes (Bld) [#/Vol] 0.40 x10(3) Normal 0.30-0.80 [facility] Comment on above: Performed By: #### L 200.4105 #### ML [facility] [address] [place] [address] 08958 Monocytes/100 WBC (Bld) 5.8 % Normal 4.3-11.2 [facility] Comment on above: Performed By: #### L 200.4105 #### ML - [facility] [address] [place] [address] 70261 Neutrophils (Bld) [#/Vol] 4.00 x10(3) Normal 1.40-6.50 [facility] Comment on above: Performed By: #### L 200.4105 #### [facility] - [facility] [address] [place] [address] 14357 Neutrophils/100 WBC (Bld) 52.1 % Normal 45.0-73.0 [facility] Comment on above: Performed By: #### L 200.4105 #### ML [facility] [address] [place] [address] 36468 Platelet mean volume (Bld) [Entitic vol] 8.6 fL Normal 7.5-9.5 [facility] Comment on above: Performed By: #### L 200.4105 #### ML - [facility] [address] [place] [address] 51422 Platelets (Bld) [#/Vol] 304 X10(3) Normal 150-450 [facility] Comment on above: Performed By: #### L 200.4105 #### ML [facility] [address] [place] [address] 67989 RBC (Bld) [#/Vol] 4.20 x10(6) Normal 3.30-5.00 [facility] Comment on above: Performed By: #### L 200.4105 #### ML [facility] [address] [place] [address] 32396 WBC (Bld) [#/Vol] 7.7 x10(3) Normal 4.5-10.0 [facility] Comment on above: Performed By: #### L 200.4105 #### ML [facility] [address] [place] [phone]IDE STUDYon [address] CT OUTSIDE STUDY CLINICAL HISTORY: 18-year-old female being admitted for persistent right lower quadrant pain. Outside facility CT abdomen/pelvis performed 04/14/2019 at 8:20 PM. Second opinion report requested. COMPARISON: None TECHNIQUE: CT of the abdomen and pelvis was performed at an outside facility with sagittal and coronal reformats with intravenous contrast and with oral contrast. 75 mL of Omni 300 intravenous contrast was given (according to attached requisition paperwork). DOSE LINEAR PRODUCT: 217.9 mGy-cm. FINDINGS: LOWER CHEST: Normal. LIVER and BILIARY SYSTEM: Normal. SPLEEN: Normal. PANCREAS: Normal. ADRENAL GLANDS: Normal. KIDNEYS, URETER, and BLADDER: Normal renal parenchyma. Mild fullness of the renal pelves bilaterally. No calcification in the renal collecting systems, ureters or urinary bladder. BOWEL: Oral contrast has reached the distal colon. No bowel obstruction. Scattered air-contrast levels. No bowel wall thickening. APPENDIX: Air-filled appendix is coiled on itself in the right lower quadrant anterior to the psoas muscle and external iliac vessels. Appendix diameter up to 6-7 mm. No convincing periappendiceal inflammation. PERITONEAL CAVITY: No free air or free fluid. UTERUS and OVARIES: No appreciable abnormality. VASCULATURE: Normal. LYMPH NODES: Normal. ABDOMINAL WALL: Right lateral aspect is partially excluded. Otherwise normal. OSSEOUS STRUCTURES: Normal. IMPRESSION: 1. Air-filled appendix with no convincing findings of appendicitis. 2. No bowel obstruction. 3. Mild fullness of the renal pelves, nonspecific. No urinary tract calcification or obstructive hydronephrosis. This report has been created using voice recognition software Signed by: Dr. Sariah Gregory at 04/15/2019 16:36 Normal [facility] ED Provider Progress Noteon 04-15-2019 [employer]chandiser Authentication Interface Message Text [place] [employer] : 2000 Chief Complaint Patient presents with Abdominal Pain No Known Allergies DOS: 04/15/2019 Previously healthy 18 year old presenting with abdominal pain. Pain present since 04/04, describes as sharp, comes and goes. Has had ovarian cysts on the left ovary in the past and this pain is different -- sharper and higher than previous pain. Pressure and curling up worsens pain, eating does not change pain. Laying and being straight makes pain worse. Has been eating less since beginning of abdominal pain due to decreased appetite, no nausea/vomiting/constip ation. Also with lower extremity cramping and weakness and trouble walking as a result. Muscle aches in lower extremities also happened in Jan or Feb, and she was seen at ED in [place], given medication with improvement. Aches resolved, patient unsure of cause. No recent activity to cause sore muscles. No rashes. Had fever at second visit to [place] per patient, unable to verify with records sent with patient or on care everywhere. Also with URI symptoms. No recent travel, born in [place]. LMP 04/06-04/11, came earlier than normal however cycles are irregular and heavy normally per patient. Patient also has had a severe headache since ultrasound this morning at [place], which she blames on the narcotic meds or the zofran. No history of migraines. She describes the headache as sharp pain on the sides and front of her head. Moving, standing up, and laying flat all worsen the head pain. Most comfortable position is laying with head slightly elevated. She reports that acetaminophen and ibuprofen have helped the headache. Photo/phonophobia present with headache. Had brief episode of hearing loss when headache began, now resolved. Dizziness resulting in vision changes since start of headache, as opposed to baseline vision changes. Possibly with balance issues as well with the headache, though difficult to determine if it's a true balance issues vs weakness/dizziness/achi ness. Presyncope when stood up at [place] following urination, not while urinating. She has had burning chest pain and SOB since JACK began, though this is improving. Has had nausea as well since beginning of headache. She feels like vomiting, but has not done so; she feels like the emesis gets stuck in her chest. Also with diarrhea since beginning of headache, no blood or melena, light brown color. She also feels like she has gas, but is unable to pass gas. [facility] Home: Has family member/adult to turn to for help Education: Grade 11, enjoys school, wants to be a automobile service writer Eating: Eats regular meals including fruits and vegetables, no concerns about body appearance Activities: Has friends, enjoys art, soccer, and basketball Drugs: Does not use tobacco, alcohol, or drugs. Safety: Home is free of violence, Has peer relationships free of violence Sex: Is not sexually active Suicidality/Mental Health: Can get anxious about school, denies type A/OCD tendencies Menstrual history: LMP: 04/06-04/11 Regularity: irregular Heaviness: heavy control: none Confidentiality discussed with teen: yes. The history is provided by the patient. Review of Systems Constitutional: Positive for appetite change. Negative for fever. HENT: Positive for ear pain (Phonophobia since JACK) and hearing loss (Since JACK, mostly resolved). Negative for congestion, rhinorrhea and sore throat. Eyes: Positive for photophobia and visual disturbance (from dizziness per pt). Respiratory: Positive for shortness of breath (Since JACK). Negative for cough. Cardiovascular: Positive for chest pain (burning with JACK). Gastrointestinal: Positive for abdominal pain (RLQ, stabbing), diarrhea (Since JACK) and nausea (Since JACK). Negative for blood in stool, constipation and vomiting. Genitourinary: Positive for flank pain (R flank) and menstrual problem (irregular, heavy cycles). Negative for decreased urine volume, difficulty urinating, dysuria and urgency. Musculoskeletal: Positive for gait problem (from weakness and dizziness) and myalgias (Lower extremities, like sore muscles without a cause). Skin: Negative for rash. Neurological: Positive for dizziness, weakness and headaches. Negative for syncope. Psychiatric/Behavioral: The patient is nervous/anxious (at times about school). History reviewed. No pertinent past medical history. History reviewed. No pertinent surgical history. Pediatric History Patient Guardians Stefany Bennett (Mother) Patient does not qualify to have social determinant information on file (likely too young). Other Topics Concern Not on file Social History Narrative Not on file ED Triage Vitals Date and Time Temp Temp src Pulse Resp BP SpO2 Weight User 04/15/19 1520 36.7 C (98 F) -- 68 16 96/67 -- 46 kg ATS 04/15/19 1459 -- -- -- -- 88/53 -- -- SRD 04/15/19 1456 36.7 C (98.1 F) Temporal 56 16 -- 99 % -- SRD 04/15/19 1036 36.7 C (98.1 F) Temporal 59 16 -- 98 % -- SRD Physical Exam Constitutional: General: She is in acute distress. Appearance: She is well-developed and normal weight. She is not ill-appearing, toxic-appearing or diaphoretic. HENT: Head: Normocephalic and atraumatic. Mouth/Throat: Mouth: Mucous membranes are moist. Pharynx: No pharyngeal swelling. Oropharynx is clear. Eyes: General: No scleral icterus. Extraocular Movements: Extraocular movements intact. Pupils: Pupils are equal, round, and reactive to light. Cardiovascular: Rate and Rhythm: Normal rate and regular rhythm. Heart sounds: Normal heart sounds. Pulmonary: Effort: Pulmonary effort is normal. No respiratory distress. Breath sounds: Normal breath sounds. Abdominal: General: Abdomen is flat. Bowel sounds are normal. There is no distension. Palpations: Abdomen is soft. There is no hepatomegaly, splenomegaly or mass. Tenderness: There is tenderness in the right lower quadrant. There is guarding and rebound. There is no right CVA tenderness or left CVA tenderness. Positive signs include McBurney's sign. Negative signs include Villanueva's sign. Skin: General: Skin is warm. Capillary Refill: Capillary refill takes 2 to 3 seconds. Neurological: General: No focal deficit present. Mental Status: She is alert. Cranial Nerves: Cranial nerves are intact. No cranial nerve deficit, dysarthria or facial asymmetry. Sensory: Sensation is intact. No sensory deficit. Psychiatric: Mood and Affect: Mood is anxious (in pain). Results for orders placed or performed during the hospital encounter of 04/15/19 Respiratory Panel Film Array Result Value Ref Range Respiratory Panel Film Array See Below Influenza A/B antigens Result Value Ref Range Influenza A/B Ag See Below Lactic Acid Result Value Ref Range Lactic Acid 0.8 0.5 - 2.2 mmol/L US Abdomen Limited Final Result IMPRESSION: 1. Non-visualized appendix. No secondary findings of inflammatory process. Appy-Score 3. 2. The outside CT abdomen/pelvis from yesterday evening has become available. This shows borderline size (6-7 mm) mostly air-filled appendix. Acute appendicitis is felt to be unlikely on prior outside CT. Results discussed with Dr. Blue at the time of interpretation with verbal acknowledgment of findings. [place] et al., Development and validation of an ultrasound scoring system for children with suspected acute appendicitis, Pediatr Radiol (2015) 45:4078-0656. This report has been created using voice recognition software US Duplex Abdomen Pelvis Complete Final Result IMPRESSION: Normal ultrasound and doppler evaluation of the uterus and adnexa. This report has been created using voice recognition software US Pelvis non ob complete Final Result IMPRESSION: Normal ultrasound and doppler evaluation of the uterus and adnexa. This report has been created using voice recognition software US Abdomen Limited Final Result IMPRESSION: Non-visualized appendix. No secondary findings of inflammatory process. Appy-Score 3. Mignon STERLING et al., Development and validation of an ultrasound scoring system for children with suspected acute appendicitis, Pediatr Radiol (2015) 45:1986-9723. This report has been created using voice recognition software ED Course: Diagnosis' considered: Appendicitis, ovarian torsion, cholelithiasis, viral syndrome, influenza Labs/Radiology: Appendix ultrasound, lactate, RFA, rapid flu, pelvic ultrasound Consults: Consults Ordered Procedures ED consult to Surgery OSH 04/14: UA unremarkable. CBC with diff notable for Hgb 11.9, otherwise WNL. Lipase WNL. Hepatic function tests with total protein 8.1, otherwise WNL. HCG negative. BMP with K 3.2 and gap 14.2 (normal 15-22), otherwise WNL. Pelvic ultrasound unremarkable with no ovarian torsion. CT abdomen pelvis with contrast showed no acute obstructive uropathy, bowel obstruction nor gross CT appendicitis; appendix incompletely visualized. OSH 04/15: Vitals WNL. UA slightly cloudy. CBC with MCHC 32.9, otherwise WNL. CRP 0.33. Lactic acid elevated at 3.5. Repeat pelvic ultrasound negative, no change from the previous day. Retroperitoneal ultrasound showed normal examination of the kidneys. No mass or hydronephrosis. Transferred to [facility] for further evaluation. At [facility], patient in pain on exam, requesting acetaminophen or ibuprofen for pain rather than narcotics (worries they gave her the headache). Given APAP 650mg at 0900. Lactate 0.8. Unable to visualize appendix with ultrasound. Surgery consulted, stated nothing to do from surgical standpoint and said to admit to hospitalist for serial abdominal exams and possible repeat CT. Given 15mg Toradol for continued pain since no surgical intervention. Vest Baster sent to [place] to retrieve CT images. RFA and rapid flu done, positive for coronavirus. UA unremarkable. Given morphine 2mg and zofran 4mg at 1345 when headache worsened. Tolerated with some dizziness, then fell asleep. CT from OSH obtained, read by [facility] radiologist, who was able to visualize appendix in its entirety. No issues seen. He also checked the OSH ultrasounds and saw no ovarian torsion, no appendicitis, and no nephrolithiasis. Current thought process is that leg pains/aches, URI symptoms are due to coronavirus. RLQ pain remains of unclear origin at this time. Patient admitted to hospitalist service for further management, evaluation, and pain control. Joanne Carbajal MD PGY-1 [facility]'s 04/15/2019 4:11 PM Encounter Documentation/Handoff: Medical Decision Making as of Apr 15 1600 Sun Apr 15, 2019 1009 Surgery at bedside Yamile Blue DO Vest Baster was sent for CD but will be several hours to get disc with CT on it. Yamile Blue DO [LK] 1407 Respiratory Panel Film Array: See Below [HM] 1407 Respiratory Panel Film Array: Respiratory Panel Film Array See Below [HM] Medical Decision Making User Index [HM] Joanne Carbajal MD [LK] Yamile Blue DO Final Clinical Impression/Diagnosis as of Apr 15 1600 Acute right lower quadrant pain + Coronavirus Rosaelena as discussed above with extensive abdominal pain work up for persistent severe RLQ pain without evidence of surgical etiology (CT, US - multiple- completed both here and [facility], all radiographic studies reviewed here by our radiologist). Other than +coronavirus she has not had evidence of other etiology for the pain. She does have sore Throat and myalgias. She has had minimal relief from fluids, toradol and tylenol. She also c/o Right sided headache on and off during time in ED. After long discussion with family, with Rosalisaa, and with radiology and surgery we felt she required admission d/t inability to determine etiology and d/t inability to control pain during her visit here. Family is in agreement. Forming Mill Operator (Citizen Of [place]) used as mother says slow hungarian is easier for her to understand since the QUECHUA (South Green[place]ic language) platform loader was not of the correct dialect for her primary language -mother says there are several but not easy to get on interpeter line and she prefers hungarian. I personally performed ignacio portions of the history and physical examination of this patient and discussed the management plan with the resident and with the patient's family. I reviewed the resident's note. Additions, changes, or discrepancies are noted in alternate font color. The findings and the plan of care are set forth above. Disposition was discussed with the family. DO Chiqui Khan [facility] EMERGENCY DEPARTMENT REPORTo n 04-15-2019 EMERGENCY [place] [address] HEALTH INFORMATION MANAGEMENT EMERGENCY DEPARTMENT REPORT Patient: MINNIE KHAN KHALIDA MATHUR D.O. [id number] [birth year] 18 F Status: DEP ER ED Date of Service: 04/14/19 CHIEF COMPLAINT: Right-sided abdominal pain. HISTORY OF PRESENT ILLNESS: The patient was seen by Dr. Ortega and turned over to me for evaluation. She had a CT that was negative now. An ultrasound has been read as normal as well. The patient continued to complain of pain, did not feel that the Toradol made much of a difference in her discomfort, so I did give her a dose of morphine, albeit very small. I examined the patient and she is resting quite comfortably. I spoke with her again about the possibility of any vaginal discharge or infections vaginally and she continues to deny this, so at this point I think her workup is complete. As far as the ER goes, I have encouraged her to follow up with [facility]. We will have her continue Tylenol and ibuprofen for pain at home. She is discharged in stable condition. Report#: Dict ID [id number] / Int ID [id number] 04/18/19 2315 KHALIDA MATHUR D.O. cc: VERONA STOVALL C.N.P.; KHALIDA MATHUR D.O. << Signature on File>> Reported By: KHALIDA MATHUR D.O. Signed By: KHALIDA MATHUR D.O. Tests performed at: [address] [address] [facility] Influenza A/B Agon 0 Influenza A/B Ag Influenza A/B Ag: Influenza A virus Ag: NEGATIVE Source: NPH Collected: 04/15/19 12:39 Site: Received : 04/15/19 12:49 Influenza A/B Ag FINAL 04/15/19 13:19 Influenza A virus Ag: NEGATIVE Influenza B virus Ag: NEGATIVE - Immunofluorometric Assay - A negative result does not rule out infection. - The sensitivity of this assay has been shown to be about 91% for the detection of seasonal influenza viruses. If influenza is circulating in your community, a diagnosis of influenza should be considered based on a patient's clinical presentation and empiric antiviral treatment should be considered, if indicated. - Normal Result: Negative. Normal [facility] Comment on above: Performed By: #### F LUAG #### [place] [address] LACTIC ACIDon 04-15-2019 Lactate [Moles/Vol] 3.5 mmol/L Critically high 0.5-2.0 [facility] Comment on above: Performed By: #### L 200.4105 #### [facility] [address] [place] [address] Lactic Acidon 04-15-2019 Lactate [Moles/Vol] 0.8 mmol/L Normal 0.5-2.2 [facility] Comment on above: Performed By: #### L A #### [address] [address] Respiratory Panel Film Array on 04-15-2019 Respiratory Panel Film Array Respiratory Panel Film Array: Coronavirus HKU1 Source: NPH Collected: 04/15/19 12:39 Site: Received : 04/15/19 12:49 Respiratory Panel Film Array FINAL 04/15/19 13:59 - POSITIVE: Coronavirus detected. - - - - - - - - - - - - - - - - - - - - - - - - - COMMENT-The Film Array Respiratory Panel detects DNA or RNA for the following organisms: Adenovirus Coronavirus(targets 229E, HKU1, NL63 and OC43) Human metapneumovirus Rhinovirus/Enterovirus Influenza A virus Influenza B virus Parainfluenza Virus 1 Parainfluenza Virus 2 Parainfluenza Virus 3 Parainfluenza Virus 4 Respiratory Syncytial virus (RSV) Bordetella parapertussis Bordetella pertussis Chlamydia pneumoniae Mycoplasma pneumoniae Coronavirus HKU1 Normal [facility] Comment on above: Performed By: #### R FILM #### [facility] [address] [place] [address] [id number] UA W/C&Son 04-15-2019 Bilirubin Ql (U) Negative Normal NEGATIVE [facility] Comment on above: Order Comment: Urine Specimen Source+ CLEAN CATCH Performed By: #### L 200.0010 #### [facility] [address] [place] [phone] Color (U) YELLOW Normal YELLOW [facility] Comment on above: Order Comment: Urine Specimen Source+ CLEAN CATCH Performed By: #### L 200.0010 #### [facility] [address] [place] [address] [phone] Glucose Ql (U) Negative Normal NEGATIVE [facility] Comment on above: Order Comment: Urine Specimen Source+ CLEAN CATCH Performed By: #### L 200.0010 #### [facility] [address] [place] [address] [id number] Hemoglobin Ql (U) Negative Normal NEGATIVE [facility] Comment on above: Order Comment: Urine Specimen Source+ CLEAN CATCH Performed By: #### L 200.0010 #### [facility] [address] [place] [address] [phone] Leukocyte esterase Test strip Ql (U) Negative Normal NEGATIVE [facility] Comment on above: Order Comment: Urine Specimen Source+ CLEAN CATCH Performed By: #### L 200.0010 #### [facility] [address] [place] [address]492 Nitrite Ql (U) Negative Normal NEGATIVE [facility] Comment on above: Order Comment: Urine Specimen Source+ CLEAN CATCH Performed By: #### L 200.0010 #### [facility] [address] [place] [address]52 pH (U) 7.5 [pH] Normal 5.0-8.0 [facility] Comment on above: Order Comment: Urine Specimen Source+ CLEAN CATCH Performed By: #### L 200.0010 #### [facility] [address] [place] [address] 57758 Protein Ql (U) Negative Normal NEGATIVE [facility] Comment on above: Order Comment: Urine Specimen Source+ CLEAN CATCH Performed By: #### L 200.0010 #### [facility] [address] [place] [address] URINE APPEARANC SL CLOUDY Normal CLEAR [facility] Comment on above: Order Comment: Urine Specimen Source+ CLEAN CATCH Performed By: #### L 200.0010 #### [facility] [address] [place] [address] URINE KETONE Negative Normal NEGATIVE [facility] Comment on above: Order Comment: Urine Specimen Source+ CLEAN CATCH Performed By: #### L 200.0010 #### [facility] [address] [place] [address] 27199 URINE SPECIFIC 1.025 Normal 1.001-1.035 [facility] Comment on above: Order Comment: Urine Specimen Source+ CLEAN CATCH Performed By: #### L 200.0010 #### [facility] [address] [place] [address] 10949 URINE UROBILINO 0.2 EU/DL Normal 0.2-1.0 [facility] Comment on above: Order Comment: Urine Specimen Source+ CLEAN CATCH Performed By: #### L 200.0010 #### [facility] [address] [place] [address]326 US ABDOMEN LIMITEDon 020 US ABDOMEN LIMITED CLINICAL HISTORY: RL Q pain COMPARISON: Right lower quadrant ultrasound performed earlier today. Outside CT abdomen/pelvis performed 04/14/2019 at 8:20 PM TECHNIQUE: Graded compression ultrasound was performed in the potential locations of the appendix. FINDINGS: LIMITATIONS: There is bowel gas limiting sonographic window. TENDER: The was some tenderness to sonographic evaluation of the right lower quadrant VISUALIZATION: The appendix was NOT visualized. FREE FLUID: None seen. FLUID COLLECTION: None seen. ECHOGENIC FAT: None seen. LYMPH NODES: Visualized lymph nodes are normal. IMPRESSION: 1. Non-visualized appendix. No secondary findings of inflammatory process. Appy-Score 3. 2. The outside CT abdomen/pelvis from yesterday evening has become available. This shows borderline size (6-7 mm) mostly air-filled appendix. Acute appendicitis is felt to be unlikely on prior outside CT. Results discussed with Dr. Blue at the time of interpretation with verbal acknowledgment of findings. Mignon STERLING et al., Development and validation of an ultrasound scoring system for children with suspected acute appendicitis, Pediatr Radiol (2015) 45:4726-4804. This report has been created using voice recognition software Signed by: Dr. Sariah Gregory at 04/15/2019 15:02 Normal [facility] US ABDOMEN LIMITED CLINICAL HISTORY: Ri ght lower quadrant pain. Evaluate appendix. COMPARISON: None. TECHNIQUE: Graded compression ultrasound was performed in the potential locations of the appendix. FINDINGS: LIMITATIONS: There is bowel gas limiting sonographic window. TENDER: The patient exhibited tenderness during the study in the right lower quadrant. VISUALIZATION: The appendix was NOT visualized. FREE FLUID: None seen. FLUID COLLECTION: None seen. ECHOGENIC FAT: None seen. LYMPH NODES: Visualized lymph nodes are normal. IMPRESSION: Non-visualized appendix. No secondary findings of inflammatory process. Appy-Score 3. Mignon STERLING et al., Development and validation of an ultrasound scoring system for children with suspected acute appendicitis, Pediatr Radiol (2015) 45:5526-9203. This report has been created using voice recognition software Signed by: Dr. Sariah Gregory at 04/15/2019 08:55 Normal [facility] US DUPLEX ABDOMEN PELVIS COM PLETEon 04-15-2019 US DUPLEX ABDOMEN PELVIS COMPLETE CLINICAL HISTORY: Right lower quadrant and pelvic pain TECHNIQUE: Transabdominal agarwal scale, color and spectral Doppler ultrasound of the uterus and adnexa was performed. COMPARISON: None. FINDINGS: UTERUS: The uterus measures 6.5 x 2.8 x 4.2 cm. Uterine configuration is normal for age. Echogenic endometrial stripe is 5 mm in thickness. FREE FLUID: None. RIGHT OVARY SIZE: 3.5 x 2.9 x 1.0 cm. VOLUME: 6.0 mL. FOLLICLES: Normal follicles seen. PARENCHYMA: Normal. OTHER: No focal lesion. RIGHT DOPPLER: Arterial and venous waveforms were seen on spectral Doppler imaging. Color flow is seen in the ovary. LEFT OVARY SIZE: 3.8 x 2.8 x 1.3 cm. VOLUME: 7.1 mL. FOLLICLES: Normal follicles seen. PARENCHYMA: Normal. OTHER: No focal lesion. LEFT DOPPLER: Arterial and venous waveforms were seen on spectral Doppler imaging. Color flow is seen in the ovary. IMPRESSION: Normal ultrasound and doppler evaluation of the uterus and adnexa. This report has been created using voice recognition software Signed by: Dr. Sariah Gregory at 04/15/2019 14:57 Normal [facility] US PELVIS COMPLETE NON OBon 04-15-2019 US PELVIS COMPLETE NON OB [address] [address] Name: MINNIE KHAN Phys: KHALIDA MATHUR D.O. : [birth year] Age: 18 Sex: F Acct: [id number] Loc: ED Exam Date: 04/15/19 Status: REG ER Radiology No.: [id number] Unit Number: [id number] Exam # Type/Exam [id number] US / US PELVIS COMPLETE NON OB BL Transabdominal ultrasound of the pelvis COMPARISON: 04/14/2019 Indication ======== Pelvic pain, TORSION? Method ====== Transabdominal ultrasound examination. Uterus ====== Visualized. Long 6.3 cm x ap 3.0 cm x tr 4.2 cm. Vol 42.2 ml. Position: anteverted Endometrial thickness, total 2.8 mm. Right Ovary ========= Visualized. Size 3.5 cm x 2.4 cm x 1.4 cm. Mean 2.5 cm. Vol 6.4 ml. Left Ovary ======== Visualized. Size 3.3 cm x 2.0 cm x 1.7 cm. Mean 2.4 cm. Vol 6.1 ml. Ovarian flow is confirmed bilaterally with duplex and color flow Doppler imaging. [place] ========= Visualized. No free fluid visualized. IMPRESSION: Negative exam. No change from the previous day. Electronically signed by: Anna Eldridge MD 04/15/2019 2:42 AM COUNTER DISH CARRIER < > Reported By: ANNA ELDRIDGE M.D. Signed In PowerScribe By: ANNA ELDRIDGE M.D. << Signature on File>> Reported By: ANNA ELDRIDGE M.D. Signed By: ANNA ELDRIDGE M.D. Tests performed at: [address] [address] Normal [facility] US PELVIS NON OB COMPLETEon 04-15-2019 US PELVIS NON OB COMPLETE CLINICAL HISTORY: Right lower quadrant and pelvic pain TECHNIQUE: Transabdominal agarwal scale, color and spectral Doppler ultrasound of the uterus and adnexa was performed. COMPARISON: None. FINDINGS: UTERUS: The uterus measures 6.5 x 2.8 x 4.2 cm. Uterine configuration is normal for age. Echogenic endometrial stripe is 5 mm in thickness. FREE FLUID: None. RIGHT OVARY SIZE: 3.5 x 2.9 x 1.0 cm. VOLUME: 6.0 mL. FOLLICLES: Normal follicles seen. PARENCHYMA: Normal. OTHER: No focal lesion. RIGHT DOPPLER: Arterial and venous waveforms were seen on spectral Doppler imaging. Color flow is seen in the ovary. LEFT OVARY SIZE: 3.8 x 2.8 x 1.3 cm. VOLUME: 7.1 mL. FOLLICLES: Normal follicles seen. PARENCHYMA: Normal. OTHER: No focal lesion. LEFT DOPPLER: Arterial and venous waveforms were seen on spectral Doppler imaging. Color flow is seen in the ovary. IMPRESSION: Normal ultrasound and doppler evaluation of the uterus and adnexa. This report has been created using voice recognition software Signed by: Dr. Sariah Gregory at 04/15/2019 14:57 Normal [facility] US RETRO LTDon 04-15-2019 US RETRO LTD [place] [address] Name: MINNIE KHAN Phys: KHALIDA MATHUR D.O. : [birth year] Age: 18 Sex: F Acct: [id number] Loc: ED Exam Date: 04/15/19 Status: REG ER Radiology No.: [id number] Unit Number: [id number] Exam # Type/Exam [id number] US / US RETRO LTD BL US RETROPERITONEUM LIMITED Clinical Statement: Right-sided pain Comparison: None Findings: The length and diameter of the kidneys are within normal limits. The right and left kidneys measure 10 x 5 x 5 and 9 x 4 x 5 cm in size, respectively. The cortex to sinus echoes appear normal in relationship to each other. No evidence of perirenal abnormalities or hydronephrosis is seen. Masses that distort renal cortical echogenicity or the cortical contours are not seen. There is no free fluid seen in the abdomen or in the retroperitoneum. Bladder volume is 693 mL prevoid, and 5 mL post void. IMPRESSION: Normal examination of the kidneys. No mass or hydronephrosis. Electronically signed by: Anna Eldridge MD 04/15/2019 2:40 AM COUNTER DISH CARRIER < > Reported By: ANNA ELDRIDGE M.D. Signed In PowerScribe By: ANNA ELDRIDGE M.D. << Signature on File>> Reported By: ANNA ELDRIDGE M.D. Signed By: ANNA ELDRIDGE M.D. Tests performed at: [address] [address] Normal [facility] Urinalysis,Automatedon 04-15 Mucous Small Normal [facility] Comment on above: Performed By: #### U FMIC #### [address] [address] RBC (U) [#/Vol] 0.0 /uL Normal 0.0-20.0 [facility] Comment on above: Performed By: #### U FMIC #### [address] [address] WBC (Bld) [#/Vol] 1.0 /uL Normal 0.0-20.0 [facility] Comment on above: Performed By: #### U FMIC #### [address] [address] Urinalysis,Completeon 2019 Volume 12 ml Normal 12 [facility] Comment on above: Performed By: #### U ACOM #### [address] [address] Bilirubin,urine Negative Normal Negative [facility] Comment on above: Performed By: #### U ACOM #### [address] [address] Character (U) Clear Normal [facility] Comment on above: Performed By: #### U ACOM #### [address] [place] [address] Color (U) Colorless Normal [facility] Comment on above: Performed By: #### U ACOM #### [address] [address] Glucose Ql (U) Negative Normal Negative [facility] Comment on above: Performed By: #### U ACOM #### [address] [address] Ketones Ql (U) Negative Normal Negative [facility] Comment on above: Performed By: #### U ACOM #### [address] [address] Leukocyte esterase Test strip Ql (U) Negative Normal Negative [facility] Comment on above: Performed By: #### U ACOM #### [address] [address] Nitrite Ql (U) Negative Normal Negative [facility] Comment on above: Performed By: #### U ACOM #### [address] [address] pH (U) 7.0 Normal 5.0-8.0 [facility] Comment on above: Performed By: #### U ACOM #### [address] [address] Protein (U) [Mass/Vol] Negative Normal Neg.-Trace [facility] Comment on above: Performed By: #### U ACOM #### [address] [address] Specific gravity (U) [Rel density] 1.005 Normal 1.005-1.030 [facility] Comment on above: Performed By: #### U ACOM #### [address] [address] Urobilinogen Qn (U) 0.2 mg/dl Normal Negative [facility] Comment on above: Performed By: #### U ACOM #### [facility] [address] [place] [address] BHCG (SERUM)on 04-14-2019 HCG.beta subunit Qn Negative Normal NEGATIVE [facility] Comment on above: Result Comment: Serum Test is more Sensitive than a Urine Test. Please Note Threshold Values: SERUM - 10mlU/mL URINE - 20mlU/mL Performed By: #### L 200.4105 #### [facility] [address] [place] [address] [address] [facility] Anion gap [Moles/Vol] 14.2 mmol/L Low 15-22 [facility] Comment on above: Performed By: #### L 200.4105 #### [facility] [address] [place] [address] Calcium [Mass/Vol] 9.5 mg/dL Normal 8.4-10.2 [facility] Comment on above: Performed By: #### L 200.4105 #### [facility] [address] [place] [address] 88065 Chloride [Moles/Vol] 100 mmol/L Normal 98-107 [facility] Comment on above: Performed By: #### L 200.4105 #### [facility] [address] [place] [address] 24177 CO2 [Moles/Vol] 28 mmol/L Normal 22-29 [facility] Comment on above: Performed By: #### L 200.4105 #### [facility] [address] [place] [address] Creatinine [Mass/Vol] 0.54 mg/dL Normal 0.50-0.90 [facility] Comment on above: Performed By: #### L 200.4105 #### [facility] [address] [place] [address]7626 eGFR if AFR YUNIOR > 60 ml/min/1.73m2 Normal [facility] Comment on above: Performed By: #### L 200.4105 #### [facility] [address] [place] [address]1295 eGFR nonAFR Yunior > 60 ml/Min/1.73m2 Normal U [facility] Comment on above: Performed By: #### L 200.4105 #### [facility] [address] [place] [address]1569 Glucose [Mass/Vol] 83 mg/dL Normal 60-100 [facility] Comment on above: Performed By: #### L 200.4105 #### [facility] [address] [place] [address] Potassium [Moles/Vol] 3.2 mmol/L Low 3.5-5.0 [facility] Comment on above: Performed By: #### L 200.5 #### [facility] [address] [place] [address]398 Sodium [Moles/Vol] 139 mmol/L Normal 135-145 [facility] Comment on above: Performed By: #### L 200.4105 #### [facility] [address] [place] [address] Urea nitrogen [Mass/Vol] 10 mg/dL Normal 5-18 [facility] Comment on above: Performed By: #### L 200.4105 #### [facility] [address] [place] [address] CBCon 04-14-2019 Basophils (Bld) [#/Vol] 0.00 x10(3) Normal 0.00-0.10 [facility] Comment on above: Performed By: #### L 200.4105 #### [facility] [address] [place] [address] Basophils/100 WBC (Bld) 0.4 % Normal 0.0-1.0 [facility] Comment on above: Performed By: #### L 200.4105 #### [facility] [address] [place] [address] Eosinophils (Bld) [#/Vol] 0.10 x10(3) Normal 0.00-0.54 [facility] Comment on above: Performed By: #### L 200.4105 #### [facility] [address] [place] [address] Eosinophils/100 WBC (Bld) 2.2 % Normal 0.5-4.9 [facility] Comment on above: Performed By: #### L 200.4105 #### [facility] [address] [place] [address] Erythrocyte distribution width (RBC) [Ratio] 13.8 % Normal 12.5-15.7 [facility] Comment on above: Performed By: #### L 200.4105 #### [facility] [address] [place] [address] Hematocrit (Bld) [Volume fraction] 36.0 % Normal 36.0-48.0 [facility] Comment on above: Performed By: #### L 200.4105 #### ML [facility] [address] [place] [address] Hemoglobin (Bld) [Mass/Vol] 11.9 g/dL Low 12.0-16.0 [facility] Comment on above: Performed By: #### L 200.4105 #### [facility] [address] [place] [address] Lymphocytes (Bld) [#/Vol] 1.90 x10(3) Normal 1.00-3.50 [facility] Comment on above: Performed By: #### L 200.4105 #### [facility] [address] [place] [address] Lymphocytes/100 WBC (Bld) 28.8 % Normal 16.0-48.0 [facility] Comment on above: Performed By: #### L 200.4105 #### ML [facility] [address] [place] [address]28 MCH (RBC) [Entitic mass] 29.2 pg Normal 28.5-32.9 [facility] Comment on above: Performed By: #### L 200.4105 #### [facility] [address] [place] [address] MCHC (RBC) [Mass/Vol] 33.1 g/dL Normal 33.0-36.0 [facility] Comment on above: Performed By: #### L 200.4105 #### ML [facility] [address] [place] [address] MCV (RBC) [Entitic vol] 88.4 fL Normal 80.0-99.0 [facility] Comment on above: Performed By: #### L 200.4105 #### ML [facility] [address] [place] [address] Monocytes (Bld) [#/Vol] 0.40 x10(3) Normal 0.30-0.80 [facility] Comment on above: Performed By: #### L 200.4105 #### ML [facility] [address] [place] [address] Monocytes/100 WBC (Bld) 6.9 % Normal 4.3-11.2 [facility] Comment on above: Performed By: #### L 200.4105 #### ML [facility] [address] [place] [address] Neutrophils (Bld) [#/Vol] 4.00 x10(3) Normal 1.40-6.50 [facility] Comment on above: Performed By: #### L 200.4105 #### [facility] [address] [place] [address] Neutrophils/100 WBC (Bld) 61.7 % Normal 45.0-73.0 [facility] Comment on above: Performed By: #### L 200.4105 #### ML [facility] [address] [place] [address] Platelet mean volume (Bld) [Entitic vol] 8.0 fL Normal 7.5-9.5 [facility] Comment on above: Performed By: #### L 200.4105 #### [facility] [address] [place] [address] Platelets (Bld) [#/Vol] 280 X10(3) Normal 150-450 [facility] Comment on above: Performed By: #### L 200.4105 #### ML [facility] [address] [place] [address] RBC (Bld) [#/Vol] 4.07 x10(6) Normal 3.30-5.00 [facility] Comment on above: Performed By: #### L 200.4105 #### [facility] [address] [place] [address] WBC (Bld) [#/Vol] 6.5 x10(3) Normal 4.5-10.0 [facility] Comment on above: Performed By: #### L 200.4105 #### [facility] [address] [place] [address] ABD/PEL W CONTRASTon 03-22 CT ABD/PEL W CONTRAST [address] [address] Name: MINNIE KHAN Phys: ASTRID ORTEGA M.D. : [birth year] Age: 18 Sex: F Acct: [id number] Loc: ED Exam Date: 04/14/19 Status: [facility] Radiology No.: [id number] Unit Number: [id number] Exam # Type/Exam [id number] CT / CT ABD/PEL W CONTRAST CT ABDOMEN PELVIS WITH IV CONTRAST CLINICAL STATEMENT: Recent right lower quadrant pain onset; bilateral lower extremity pain. COMPARISON: None TECHNIQUE: Axial images were obtained from the lung bases through the pubic symphysis after the administration of IV contrast. Coronal and sagittal reformatted images were generated from the axial dataset. This exam was performed according to our departmental dose optimization program, and includes the following measures where applicable: automated exposure control, adjustment of the mAs and/or kVp according to patient size and/or exam, and an iterative reconstruction algorithm. FINDINGS: The included lung bases are clear. There is no visible pleural or pericardial effusion. The heart is normal in size. The liver, spleen, adrenal glands and pancreas are within normal limits. The gallbladder is normal. The kidneys enhance symmetrically, absent hydronephrosis. The large and small bowel demonstrate no obstruction. The incompletely visualized appendix is grossly normal; no pericecal inflammatory changes. No free intraperitoneal fluid or gas is identified. The aorta is normal in caliber. There is no adenopathy. The uterus and adnexa are normal. The distended urinary bladder is normal. There is no acute fracture or aggressive osseous lesion. IMPRESSION: No acute obstructive uropathy, bowel obstruction nor gross CT appendicitis; appendix incompletely visualized. Electronically signed by: Morgan York MD 04/14/2019 8:13 PM COUNTER DISH CARRIER < > Reported By: MORGAN YORK M.D. Signed In PowerScribe By: MORGAN YORK M.D. << Signature on File>> Reported By: MORGAN YORK M.D. Signed By: MORGAN YORK M.D. Tests performed at: [address] [address] Normal [facility] EMERGENCY DEPARTMENT REPORTo n 04-14-2019 [place]ERGENCY [place] [address] HE[facility] INFORMATION MANAGEMENT EMERGENCY DEPARTMENT REPORT Patient: MINNIE KHANASTRID M.D. [id number] [birth year] 18 F Status: DEP ER ED Date of Service: 04/14/19 ADDENDUM: DIAGNOSTIC TESTS: Urinalysis has been reviewed and is pretty normal overall. CBC shows white count of 6.5, hemoglobin 7.9, platelet count 280. Serum hCG is negative. Basic metabolic panel and hepatic panel have been reviewed. Potassium is a little low at 3.2. Lipase is 20. CT scan of the patient's abdomen and pelvis shows no definite acute abnormalities. Appendix was seen somewhat incompletely, but it was normal. There were no inflammatory changes there. EMERGENCY DEPARTMENT COURSE: The patient was brought into bed #4 and was evaluated by myself. The blood workup was obtained. The CT does not show signs of appendicitis and while the appendix is incompletely visualized, I think the lack of secondary signs in addition to an elevated white count or even a left shift or at least somewhat evidence for the fact this is not likely to be appendicitis. My other concern would be a right ovarian cyst on the patient. The patient's pain is significant enough that I have ordered a dose of some IV Toradol for her. At this time, I have ordered pelvic ultrasound and the plan is going to be to turn the patient over to Dr. Chhaya thornton for the ER shift pending further diagnosis with the ultrasound. I discussed other issues with her. She has had no vaginal discharge or drainage and seems unlikely to be of a sexually transmitted disease, especially that of an abnormal UA. Report#: Dict ID [id number] / Int ID [id number] 04/16/19 1623 ASTRID ORTEGA M.D. cc: ASTRID ORTEGA M.D.; VERONA STOVALL C.N.P. << Signature on File>> Reported By: ASTRID ORTEGA M.D. Signed By: ASTRID ORTEGA M.D. Tests performed at: [facility] [address] [place], [place] [address] Normal [facility] EMERGENCY [place] [address] HE[facility] INFORMATION MANAGEMENT EMERGENCY DEPARTMENT REPORT Patient: MINNIE KHAN ASTRID ORTEGA M.D. [id number] [birth year] 18 F Status: DEP ER ED Date of Service: 04/14/19 CHIEF COMPLAINT: Right lower quadrant pain. ALLERGIES: No known drug allergies. MEDICATIONS: None currently. HISTORY OF PRESENT ILLNESS: Minnie is a very nice 18-year-old female, who presents to the emergency room with her mother. She is here for abdominal pain. This has been ongoing now for about 1 week. It is in the right lower quadrant and a bit to the right of midaxillary line. It definitely gets worse with movement, especially with lifting the right leg. She did not really vomit or had any fever. Her last menstrual period was about 2 or 3 days ago. She has no other acute complaints, although her mother is concerned that the patient does not eat well. The patient tells me that it has been consistent or over the same time as this pain, but the patient's mother seems to indicate more than that. I think per the patient's mother's conversation that she is worried this has been going on longer. The history here came from the patient. I used a body worker with this, but that is mainly because of the mother and the patient herself speaks excellent Turkmen. The patient also does have bit of a headache. PREVIOUS MEDICAL HISTORY: No significant medical illnesses. SOCIAL HISTORY: The patient lives at home with her family. REVIEW OF SYSTEMS: As per history of present illness. She additionally has had some headaches. Otherwise, rest of the 10-item review of systems is negative. PHYSICAL EXAMINATION: GENERAL/CONSTITUTIONAL: The patient is an age-appropriate female, in no acute distress. HEENT: Head has been atraumatic. LUNGS: Clear to auscultation bilaterally. NECK: Unremarkable. No mass noted grossly. HEART: Regular rate and rhythm. ABDOMEN: Soft. There is some right lower quadrant tenderness. No rebound and no guarding noted. EXTREMITIES: Show no redness, no swelling in the ankles. NEUROLOGIC: The patient is awake and alert, very appropriately interactive. No focal deficits noted. DICTATION ENDS HERE. Report#: Dict ID [id number] / Int ID [id number] 04/16/19 1623 ASTRID ORTEGA M.D. cc: ASTRID ORTEGA M.D.; VERONA STOVALL C.N.P. << Signature on File>> Reported By: ASTRID ORTEGA M.D. Signed By: ASTRID ORTEGA M.D. Tests performed at: [address] [address] Normal [facility] HEPATIC PANELon 04-14-2019 A:G RATIO 1.21 Normal 1.1-2.5 [facility] Comment on above: Performed By: #### L 200.0145 #### [facility] - [facility] [address] [place] [address] Albumin [Mass/Vol] 4.5 g/dL Normal 3.2-4.5 [facility] Comment on above: Performed By: #### L 200.4105 #### [facility] - [facility] [address] [place] [address] ALK. PHOS 100 U/L Normal 35-186 [facility] Comment on above: Performed By: #### L 200.4105 #### [facility] LABORATORY [address] [place] [address] 41476 ALT [Catalytic activity/Vol] 9 U/L Normal 5-33 [facility] Comment on above: Performed By: #### L 200.5 #### [facility] - LABORATORY [address] [place] [address] 01386 AST [Catalytic activity/Vol] 16 U/L Normal 5-32 [facility] Comment on above: Performed By: #### L 200.5 #### [facility] - LABORATORY [address] [place] [address] 83583 Bilirubin Ql (U) <0.2 Normal 0.2-1.0 [facility] Comment on above: Performed By: #### L 200.5 #### [facility] - LABORATORY [address] [place] [address] 82857 DIRECT BILIRUBI <0.2 Normal 0.0-0.3 [facility] Comment on above: Performed By: #### L 200.5 #### [facility] [address] [place] [address] 39822 Globulin (S) [Mass/Vol] 3.7 g/dL Normal 1.5-4.5 [facility] Comment on above: Performed By: #### L 200.5 #### [facility] - LABORATORY [address] [place] [address] 05605 Protein [Mass/Vol] 8.2 g/dL High 6.0-8.0 [facility] Comment on above: Performed By: #### L 200.5 #### [facility] - LAB[facility]ATORY [address] [place] [address] 38765 LIPASEon 04-14-2019 Lipase [Catalytic activity/Vol] 20 U/L Normal 13-60 [facility] Comment on above: Performed By: #### L 200.5 #### [facility] - LAB[facility]ATORY [address] [place] [address] 24013 UA W/C&Son 04-14-2019 Bilirubin Ql (U) Negative Normal NEGATIVE [facility] Comment on above: Order Comment: Urine Specimen Source+ CLEAN CATCH Performed By: #### L 200.3001 #### [facility] - LAB[facility]ATORY [address] [place] [address] 95301 Color (U) YELLOW Normal YELLOW [facility] Comment on above: Order Comment: Urine Specimen Source+ CLEAN CATCH Performed By: #### L 200.3001 #### [facility] - LAB[facility]ATORY [address] [place] [address] 75419 Glucose Ql (U) Negative Normal NEGATIVE [facility] Comment on above: Order Comment: Urine Specimen Source+ CLEAN CATCH Performed By: #### L 200.3001 #### [facility] - LAB[facility]ATORY [address] [place] [address] 21011 Hemoglobin Ql (U) Negative Normal NEGATIVE [facility] Comment on above: Order Comment: Urine Specimen Source+ CLEAN CATCH Performed By: #### L 200.3001 #### [facility] - [facility]ATORY [address] [place] [address] 21633 Leukocyte esterase Test strip Ql (U) Negative Normal NEGATIVE [facility] Comment on above: Order Comment: Urine Specimen Source+ CLEAN CATCH Performed By: #### L 200.3001 #### [facility] - [facility]ATORY [address] [place] [address] 08429 Nitrite Ql (U) Negative Normal NEGATIVE [facility] Comment on above: Order Comment: Urine Specimen Source+ CLEAN CATCH Performed By: #### L 200.3001 #### [facility] - [facility]ORY [address] [place] [address] 78748 pH (U) 7.0 [pH] Normal 5.0-8.0 [facility] Comment on above: Order Comment: Urine Specimen Source+ CLEAN CATCH Performed By: #### L 200.3001 #### [facility] - [facility] [address] [place] [address] 29175 Protein Ql (U) Negative Normal NEGATIVE [facility] Comment on above: Order Comment: Urine Specimen Source+ CLEAN CATCH Performed By: #### L 200.3001 #### [facility] - [facility] [address] [place] [address] 53987 URINE APPEARANC CLEAR Normal CLEAR [facility] Comment on above: Order Comment: Urine Specimen Source+ CLEAN CATCH Performed By: #### L 200.3001 #### [facility] - [facility] [address] [place] [address] 04914 URINE KETONE Negative Normal NEGATIVE [facility] Comment on above: Order Comment: Urine Specimen Source+ CLEAN CATCH Performed By: #### L 200.3001 #### [facility] - [facility]ORY [address] [place] [address] 51792 URINE SPECIFIC 1.010 Normal 1.001-1.035 [facility] Comment on above: Order Comment: Urine Specimen Source+ CLEAN CATCH Performed By: #### L 200.3001 #### [facility] [address] [place] [address] 44813 URINE UROBILINO 0.2 EU/DL Normal 0.2-1.0 [facility] Comment on above: Order Comment: Urine Specimen Source+ CLEAN CATCH Performed By: #### L 200.3001 #### [facility] [address] [place] [address] 28843 US PELVIS COMPLETE NON OBon 04-14-2019 US PELVIS COMPLETE NON OB [address] [address] Name: MINNIE KHAN Phys: ASTRID ORTEGA M.D. : [birth year] Age: 18 Sex: F Acct: [id number] Loc: ED Exam Date: 04/14/19 Status: REG ER Radiology No.: [id number] Unit Number: [id number] Exam # Type/Exam [id number] US / US PELVIS COMPLETE NON OB COMPARISON: [none] Indication ======== Pelvic pain. Assessment LMP on 04/06/2019. Day of cycle: 9. Method ====== Transabdominal ultrasound examination. Uterus ====== Visualized. Long 5.6 cm x ap 3.2 cm x tr 4.4 cm. Vol 40.8 ml. Position: anteverted Endometrial thickness, total 3.5 mm. Right Ovary ========= Visualized. Size 3.1 cm x 2.4 cm x 1.7 cm. Mean 2.4 cm. Vol 6.8 ml. Left Ovary ======== Visualized. Size 3.0 cm x 2.7 cm x 1.8 cm. Mean 2.5 cm. Vol 7.8 ml. Cul de Sac ========= Visualized. No free fluid visualized. Bilateral ovaries display positive blood flow. IMPRESSION: [ Unremarkable pelvic ultrasound. No ovarian torsion.] Electronically signed by: Morgan York MD 04/14/2019 9:48 PM [facility] < > Reported By: MORGAN YORK M.D. Signed In PowerScribe By: MORGAN YORK M.D. << Signature on File>> Reported By: MORGAN YORK M.D. Signed By: MORGAN YORK M.D. Tests performed at: [place] [address] [facility] EMERGENCY DEPARTMENT REPORTo n 06-20-2018 EMERGENCY DEPARTMENT REPORT THE [facility] [place] [address] HEALTH INFORMATION MANAGEMENT EMERGENCY DEPARTMENT REPORT Patient: MINNIE KHAN KHALIDA MATHUR D.O. [id number] [age] F Status: DEP ER ED Date of Service: 05/26/18 ADDENDUM EMERGENCY DEPARTMENT COURSE This patient was turned over to me by Dr. Lund. The nurse practitioner was actually still here and managed the case until the end of her course with us, but I did receive the results of the CT scan, and that was a negative study, so the patient left our facility then in stable condition with a nonsurgical abdomen. IMPRESSION 07/16/18 0548 KHALIDA MATHUR D.O. cc: KHALIDA MATHUR D.O. << Signature on File>> Reported By: KHALIDA MATHUR D.O. Signed By: KHALIDA MATHUR D.O. Tests performed at: [place] [address] [facility] ED REPORTon 05-28-2018 [place] [address] HEALTH INFORMATION MANAGEMENT EMERGENCY DEPARTMENT REPORT Patient: MINNIE KHANMOIRA D.O. as dictated by MOUNA PRADHAN [id number] [birth year] 17 F Status: DEP ER ED Date of Service: 05/26/18 CHIEF COMPLAINT Abdominal pain. HISTORY OF PRESENT ILLNESS This is a 17-year-old female who presents to the emergency department with her mother. History obtained via platform loader. The patient is complaining of pain in her lower abdomen for a week now. She has not had any vomiting. She did have one episode of diarrhea prior to today though she has not had a bowel movement in over a week. She is complaining of some dysuria for the last 4-5 days. No vomiting. She is currently menstruating and that does appear to be normal for her. No fever. She has no other complaints. PAST MEDICAL HISTORY Past medical history is unremarkable. PAST SURGICAL HISTORY Surgical history is unremarkable. SOCIAL HISTORY Unremarkable. ALLERGIES No known drug allergies. MEDICATIONS No daily medications. REVIEW OF SYSTEMS Head, eyes, ears, nose and throat: No complaints. Chest: No chest pain or palpitations. Lungs: No coughing, wheezing, shortness of breath. Abdomen: Lower abdominal pain. One episode of diarrhea. No vomiting. Genitourinary: She is complaining of dysuria. No hematuria. She is currently menstruating. No vaginal discharge. She denies being sexually active. Skin: No complaints. PHYSICAL EXAMINATION A well-developed, well-nourished child in no acute distress. HEENT within normal limits. Heart regular rate and rhythm. No murmur. Lungs are clear and equal. No wheezing, rhonchi or rales. Abdomen is soft, mildly distended. She is tender in the left lower, left upper quadrant mainly. No guarding or rebounding. Musculoskeletal is unremarkable. Skin is unremarkable. EMERGENCY DEPARTMENT COURSE CMP was obtained and was unremarkable. Lipase was normal. Urinalysis: She has had some blood in her urine. No infection noted. HCG is negative. CBC: White count is normal, H&H are 10.8 and 32.2. I did obtain CT abdomen and pelvis that shows no acute intra-abdominal process. The patient and mom were advised of findings. I do think the patient's pain is coming from being constipated. I am going to give her a bottle of mag citrate to go home with and have her start on MiraLAX daily. Mom was advised on diet and home management. They were advised to return with any worsening in her symptoms like increasing pain, intractable vomiting, fever, etc. They verbalized understanding. She will be discharged home in good condition. IMPRESSION Constipation. 06/06/18 0714 MOIRA LUND D.O. cc: MOIRA LUND D.O. << Signature on File>> Reported By: MOIRA LUND D.O. Signed By: MOIRA LUND D.O. Tests performed at: [address] [address] Normal [facility] EMERGENCY DEPARTMENT REPORTo n 05-28-2018 EMERGENCY [place] [address] HEALTH INFORMATION MANAGEMENT EMERGENCY DEPARTMENT REPORT Patient: MINNIE KHAN MOIRA LUND D.O. [id number] [age] F Status: [facility] ER ED Date of Service: 05/26/18 CHIEF COMPLAINT Abdominal pain. This patient was seen in conjunction with nurse practitioner Simon Helms. Please see her note for further detail. HISTORY OF PRESENT ILLNESS The patient is a 17-year-old female presenting to the emergency department with a chief complaint of abdominal pain. She states that this started about a week ago. She states that it has been staying the same. She states it is associated with diarrhea but no vomiting. She denies any blood in her stool. She denies any fevers. She does admit to a little bit of dysuria as well. She denies any vaginal discharge or vaginal bleeding. She denies any concerns of STDs. She denies any back pain. She denies any vomiting. She has no other associated symptoms at this time. REVIEW OF SYSTEMS A 10-point review of systems at this point was negative except for the HPI. PHYSICAL EXAMINATION General: The patient was alert and appeared to be in no acute distress with stable vital signs. The head was normocephalic, atraumatic. Eyes: Pupils were equal and reactive to light with normal conjunctivae. ENT: The oral mucosa was moist. Heart: Regular. Lungs were clear. The abdomen was soft. She did have some periumbilical and left upper and lower abdominal tenderness. No peritoneal findings. No rebounding, rigidity or guarding. No signs of a surgical abdomen. No CVA tenderness. There is no lower extremity edema. EMERGENCY DEPARTMENT COURSE The patient was hemodynamically stable, nonseptic and nontoxic. We did end up getting blood work on the patient, and a CT scan of the abdomen and pelvis was ordered. CBC shows a hemoglobin of 10.8. Chemistry panel was unremarkable. Urinalysis showed large blood, but test was negative. No signs of a urinary tract infection. At this point, we are awaiting the CT scan of the abdomen and pelvis. The patient is going to be signed out to my colleague, Dr. Khalida Mathur, for further evaluation, management and treatment. IMPRESSION Impression and disposition are pending. 06/06/18 0714 MOIRA LUND D.O. cc: MOIRA LUND D.O. << Signature on File>> Reported By: MOIRA LUND D.O. Signed By: MOIRA LUND D.O. Tests performed at: [address] [address] Normal [facility] BHCG (URINE)on 05-26-2018 Beta HCG ( test) Ql (U) Negative Normal NEGATIVE [facility] Comment on above: Result Comment: Serum Test is more Sensitive than a Urine Test. Please Note Threshold Values: SERUM - 10mlU/mL URINE - 20mlU/mL Performed By: #### L 200.4105 #### [facility] [address] [place] [address] 18795 CBCon 05-26-2018 Basophils (Bld) [#/Vol] 0.00 x10(3) Normal 0.00-0.10 [facility] Comment on above: Performed By: #### L 200.0010 #### ML [facility] [address] [place] [address] 31452 Basophils/100 WBC (Bld) 0.4 % Normal 0.0-1.0 [facility] Comment on above: Performed By: #### L 200.0010 #### [facility] [address] [place] [address] 10376 Eosinophils (Bld) [#/Vol] 0.30 x10(3) Normal 0.00-0.54 [facility] Comment on above: Performed By: #### L 200.0010 #### [facility] [address] [place] [address] 05975 Eosinophils/100 WBC (Bld) 4.7 % Normal 0.5-4.9 [facility] Comment on above: Performed By: #### L 200.0010 #### [facility] [address] [place] [address] 32499 Erythrocyte distribution width (RBC) [Ratio] 13.6 % Normal 12.5-15.7 [facility] Comment on above: Performed By: #### L 200.0010 #### [facility] [address] [place] [address] 86118 Hematocrit (Bld) [Volume fraction] 32.2 % Low 36.0-48.0 [facility] Comment on above: Performed By: #### L 200.0010 #### [facility] [address] [place] [address] 52506 Hemoglobin (Bld) [Mass/Vol] 10.8 g/dL Low 12.0-16.0 [facility] Comment on above: Performed By: #### L 200.0010 #### [facility] [address] [place] [address] 50358 Lymphocytes (Bld) [#/Vol] 2.10 x10(3) Normal 1.00-3.50 [facility] Comment on above: Performed By: #### L 200.0010 #### [facility] [address] [place] [address] 18745 Lymphocytes/100 WBC (Bld) 37.3 % Normal 16.0-48.0 [facility] Comment on above: Performed By: #### L 200.0010 #### [facility] [address] [place] [address] 61500 MCH (RBC) [Entitic mass] 28.9 pg Normal 28.5-32.9 [facility] Comment on above: Performed By: #### L 200.0010 #### [facility] [address] [place] [address] 75628 MCHC (RBC) [Mass/Vol] 33.6 g/dL Normal 33.0-36.0 [facility] Comment on above: Performed By: #### L 200.0010 #### [facility] [address] [place] [address] 96167 MCV (RBC) [Entitic vol] 86.0 fL Normal 80.0-99.0 [facility] Comment on above: Performed By: #### L 200.0010 #### [facility] [address] [place] [address] 43158 Monocytes (Bld) [#/Vol] 0.30 x10(3) Normal 0.30-0.80 [facility] Comment on above: Performed By: #### L 200.0010 #### [facility] [address] [place] [address] 74529 Monocytes/100 WBC (Bld) 5.3 % Normal 4.3-11.2 [facility] Comment on above: Performed By: #### L 200.0010 #### [facility] [address] [place] [address] 00867 Neutrophils (Bld) [#/Vol] 3.00 x10(3) Normal 1.40-6.50 [facility] Comment on above: Performed By: #### L 200.0010 #### [facility] [address] [place] [address] 49148 Neutrophils/100 WBC (Bld) 52.3 % Normal 45.0-73.0 [facility] Comment on above: Performed By: #### L 200.0010 #### [facility] [address] [place] [address] 04230 Platelet mean volume (Bld) [Entitic vol] 8.3 fL Normal 7.5-9.5 [facility] Comment on above: Performed By: #### L 200.0010 #### [facility] [address] [place] [address] 77545 Platelets (Bld) [#/Vol] 233 X10(3) Normal 150-450 [facility] Comment on above: Performed By: #### L 200.0010 #### [facility] [address] [place] [address] 79679 RBC (Bld) [#/Vol] 3.74 x10(6) Normal 3.30-5.00 [facility] Comment on above: Performed By: #### L 200.0010 #### [facility] [address] [place] [address] 45192 WBC (Bld) [#/Vol] 5.7 x10(3) Normal 4.5-10.0 [facility] Comment on above: Performed By: #### L 200.0010 #### [facility] [address] [place] [address] 08026 CMPon 05-26-2018 A:G RATIO 1.19 Normal 1.1-2.5 [facility] Comment on above: Performed By: #### L 100.0005, L100.0350 #### [facility] [address] [place] [address] 58961 Albumin [Mass/Vol] 4.3 g/dL Normal 3.2-4.5 [facility] Comment on above: Performed By: #### L 100.0005, L100.0350 #### [facility] [address] [place] [address] 54257 ALK. PHOS 93 U/L Normal 35-186 [facility] Comment on above: Performed By: #### L 100.0005, L100.0350 #### [facility] [address] [place] [address] 84590 ALT [Catalytic activity/Vol] 10 U/L Normal 5-33 [facility] Comment on above: Performed By: #### L 100.0005, L100.0350 #### [facility] - [facility] [address] [place] [address] 03753 Anion gap [Moles/Vol] 12.8 mmol/L Low 15-22 [facility] Comment on above: Performed By: #### L 100.0005, L100.0350 #### [facility] [address] [place] [address] 39439 AST [Catalytic activity/Vol] 18 U/L Normal 5-32 [facility] Comment on above: Result Comment: SPEC IMEN SHOWS HEMOLYSIS.IF RESULTS DO NOT CLINICALLY CORRELATE, SUGGEST RECOLLECTION. Performed By: #### L 100.0005, L100.0350 #### [facility] - [facility] [address] [place] [address] 57443 Bilirubin Ql (U) 0.2 mg/dL Normal 0.2-1.0 [facility] Comment on above: Performed By: #### L 100.0005, L100.0350 #### [facility] [address] [place] [address] 33553 Calcium [Mass/Vol] 9.1 mg/dL Normal 8.4-10.2 [facility] Comment on above: Performed By: #### L 100.0005, L100.0350 #### [facility] [address] [place] [address] 60750 Chloride [Moles/Vol] 106 mmol/L Normal 98-107 [facility] Comment on above: Performed By: #### L 100.0005, L100.0350 #### [facility] [address] [place] [address] 38874 CO2 [Moles/Vol] 24 mmol/L Normal 22-29 [facility] Comment on above: Performed By: #### L 100.0005, L100.0350 #### [facility] [address] [place] [address] 00913 Creatinine [Mass/Vol] 0.42 mg/dL Low 0.50-0.90 [facility] Comment on above: Performed By: #### L 100.0005, L100.0350 #### [facility] [address] [place] [address] 17335 eGFR if AFR YUNIOR > 60 ml/min/1.73m2 Normal U [facility] Comment on above: Performed By: #### L 100.0005, L100.0350 #### [facility] [address] [place] [address] 52662 eGFR nonAFR Yunior > 60 ml/Min/1.73m2 Normal U [facility] Comment on above: Performed By: #### L 100.0005, L100.0350 #### [facility] [address] [place] [address] 57228 Globulin (S) [Mass/Vol] 3.6 g/dL Normal 1.5-4.5 [facility] Comment on above: Performed By: #### L 100.0005, L100.0350 #### [facility] [address] [place] [address] 35824 Glucose [Mass/Vol] 93 mg/dL Normal 60-100 [facility] Comment on above: Performed By: #### L 100.0005, L100.0350 #### [facility] [address] [place] [address] 11503 Potassium [Moles/Vol] 3.8 mmol/L Normal 3.5-5.0 [facility] Comment on above: Performed By: #### L 100.0005, L100.0350 #### [facility] [address] [place] [address] 91875 Protein [Mass/Vol] 7.9 g/dL Normal 6.0-8.0 [facility] Comment on above: Performed By: #### L 100.0005, L100.0350 #### [facility] [address] [place] [address] 42063 Sodium [Moles/Vol] 139 mmol/L Normal 135-145 [facility] Comment on above: Performed By: #### L 100.0005, L100.0350 #### [facility] [address] [place] [address] 79277 Urea nitrogen [Mass/Vol] 9 mg/dL Normal 5-18 [facility] Comment on above: Performed By: #### L 100.0005, L100.0350 #### [facility] [address] [place] [address] ABD/PEL W CONTRASTon 03-0 CT ABD/PEL W CONTRAST [address] [address] Name: MINNIE KHAN Phys: SIMON HELMS : 02 Age: 17 Sex: F Acct: [id number] Loc: ED Exam Date: 05/26/18 Status: DEP ER Radiology No.: [id number] Unit Number: [id number] Exam # Type/Exam [id number] CT / CT ABD/PEL W CONTRAST CLINICAL HISTORY: Pain TECHNIQUE: Axial CT images were obtained from the lung bases through the pelvis after the uneventful administration of IV and oral contrast. Coronal and sagittal reformats were obtained. Dose lowering techniques were utilized to include automated exposure control, adjustment of the mA and/or kV according to patient size, and use of iterative reconstruction technique. COMPARISON: None available FINDINGS: The size, density, and morphology of the liver, spleen, adrenals, kidneys, pancreas and unopacified loops of bowel are unremarkable. The opacified aorta demonstrates normal size and morphology without aneurysmal dilation or dissection. There are no enlarged lymph nodes by pathologic size criteria. There is no free fluid within the pelvis. The bladder and pelvic organs have an unremarkable CT appearance. The osseous structures are without gross lytic or sclerotic lesion. The lung bases are clear. IMPRESSION: No acute intra-abdominal or intrapelvic pathology. This exam was performed according to our departmental dose optimization program, and includes the following measures where applicable: automated exposure control, adjustment of the mAs and/or kVp according to patient size and/or exam, and an iterative reconstruction algorithm. Professional interpretation provided by [facility], [place] on [id number]. Thank you for this referral. < > Reported By: SARIAH JOHNSON M.D. Signed In NovaPro By: SARIAH JOHNSON M.D. << Signature on File>> Reported By: SARIAH JOHNSON M.D. Signed By: SARIAH JOHNSON M.D. Tests performed at: [address] [address] Normal [facility] LIPASEon 05-26-2018 Lipase [Catalytic activity/Vol] 18 U/L Normal 13-60 [facility] Comment on above: Performed By: #### L 100.0005, L100.0350 #### [facility] [address] [place] [address] 76366 UA W/C&Son 05-26-2018 Bilirubin Ql (U) Negative Normal NEGATIVE [facility] Comment on above: Order Comment: Urine Specimen Source+ CLEAN CATCH Performed By: #### L 200.3001 #### [facility] [address] [place] [address] 01936 Color (U) YELLOW Normal YELLOW [facility] Comment on above: Order Comment: Urine Specimen Source+ CLEAN CATCH Performed By: #### L 200.3001 #### [facility] [address] [place] [address] 13826 Glucose Ql (U) Negative Normal NEGATIVE [facility] Comment on above: Order Comment: Urine Specimen Source+ CLEAN CATCH Performed By: #### L 200.3001 #### [facility] [address] [place] [address] 09223 Hemoglobin Ql (U) LARGE Normal NEGATIVE [facility] Comment on above: Order Comment: Urine Specimen Source+ CLEAN CATCH Performed By: #### L 200.3001 #### [facility] [address] [place] [address] 46898 Leukocyte esterase Test strip Ql (U) Negative Normal NEGATIVE [facility] Comment on above: Order Comment: Urine Specimen Source+ CLEAN CATCH Performed By: #### L 200.3001 #### [facility] [address] [place] [address] 54679 Nitrite Ql (U) Negative Normal NEGATIVE [facility] Comment on above: Order Comment: Urine Specimen Source+ CLEAN CATCH Performed By: #### L 200.3001 #### [facility] [address] [place] [address] 00620 pH (U) 7.0 [pH] Normal 5.0-8.0 [facility] Comment on above: Order Comment: Urine Specimen Source+ CLEAN CATCH Performed By: #### L 200.3001 #### [facility] [address] [place] [address] 97406 Protein Ql (U) Negative Normal NEGATIVE [facility] Comment on above: Order Comment: Urine Specimen Source+ CLEAN CATCH Performed By: #### L 200.3001 #### [facility] [address] [place] [address] 19368 URINE APPEARANC CLEAR Normal CLEAR [facility] Comment on above: Order Comment: Urine Specimen Source+ CLEAN CATCH Performed By: #### L 200.3001 #### [facility] [address] [place] [address] 40512 URINE KETONE Negative Normal NEGATIVE [facility] Comment on above: Order Comment: Urine Specimen Source+ CLEAN CATCH Performed By: #### L 200.3001 #### [facility] [address] [place] [address] 90929 URINE SPECIFIC 1.015 Normal 1.001-1.035 [facility] Comment on above: Order Comment: Urine Specimen Source+ CLEAN CATCH Performed By: #### L 200.3001 #### [facility] [address] [place] [address] 09733 URINE UROBILINO 0.2 EU/DL Normal 0.2-1.0 [facility] Comment on above: Order Comment: Urine Specimen Source+ CLEAN CATCH Performed By: #### L 200.3001 #### [facility] [address] [place] [id number] Vital Signs Date Time Vital Sign Value Performing Clinician Facility 09-25-2023 17:09-0400 Body temperature 97.9 [degF] Carli GUAMAN-C Work Phone: [facility] 09-25-2023 17:09-0400 Body weight 46.72 kg Carli GUAMAN-C Work Phone: [facility] 09-25-2023 17:09-0400 Diastolic blood pressure 60 mm[Hg] Carli GUAMAN-C Work Phone: [facility] 09-25-2023 17:09-0400 Heart rate 79 /min Carli GUAMAN-C Work Phone: [facility] 09-25-2023 17:09-0400 Respiratory rate 16 /min Carli GUAMAN-C Work Phone: [facility] 09-25-2023 17:09-0400 SaO2% (BldA) [Mass fraction] 100 % Carli GUAMAN-C Work Phone: [facility] 09-25-2023 17:09-0400 Systolic blood pressure 94 mm[Hg] Carli GUAMAN-C Work Phone: [facility] 07-27-2021 13:04-0400 Body weight 42.64 kg Granados PARTS IDENTIFICATION TECHNICIAN.CNM Work Phone: [facility] 07-27-2021 13:04-0400 Diastolic blood pressure 62 mm[Hg] Granados PARTS IDENTIFICATION TECHNICIAN.CNM Work Phone: [facility] 07-27-2021 13:04-0400 Systolic blood pressure 90 mm[Hg] Granados PARTS IDENTIFICATION TECHNICIAN.CNM Work Phone: [facility] 06-19-2021 14:07-0400 Body weight 45.81 kg Granados PARTS IDENTIFICATION TECHNICIAN.CNM Work Phone: [facility] 06-19-2021 14:07-0400 Diastolic blood pressure 58 mm[Hg] Granados PARTS IDENTIFICATION TECHNICIAN.CNM Work Phone: [facility] 06-19-2021 14:07-0400 Systolic blood pressure 98 mm[Hg] Granados PARTS IDENTIFICATION TECHNICIAN.CNM Work Phone: [facility] 06-09-2021 14:25-0400 Body weight 51.71 kg Maryellen Plotts PARTS IDENTIFICATION TECHNICIAN.CNM Work Phone: [facility] 06-09-2021 14:25-0400 Diastolic blood pressure 68 mm[Hg] Maryellen Plotts PARTS IDENTIFICATION TECHNICIAN.CNM Work Phone: [facility] 06-09-2021 14:25-0400 Systolic blood pressure 102 mm[Hg] Maryellen Plotts PARTS IDENTIFICATION TECHNICIAN.CNM Work Phone: [facility] 03-23-2021 04:03-0500 Body height 157.5 cm YAAKOV PATEL MD [facility] 03-23-2021 04:03-0500 Body weight 46 kg YAAKOV PATEL MD [facility] 03-23-2021 04:03-0500 Body weight 18.54 kg/m2 YAAKOV PATEL MD [facility] 03-23-2021 04:02-0500 Body temperature 98.24 [degF] YAAKOV PATEL MD [facility] 03-23-2021 04:02-0500 Diastolic blood pressure 47 mm[Hg] YAAKOV PATEL MD [facility] 03-23-2021 04:02-0500 Heart rate 78 /min YAAKOV PATEL MD [facility] 03-23-2021 04:02-0500 Mean blood pressure 63 mm[Hg] YAAKOV PATEL MD [facility] 03-23-2021 04:02-0500 Respiratory rate 16 /min YAAKOV PATEL MD [facility] 03-23-2021 04:02-0500 Systolic blood pressure 95 mm[Hg] YAAKOV PATEL MD [facility] 01-13-2021 21:57-0400 Body temperature 98.6 [degF] TO CASTILLO PA-C [facility] 01-13-2021 21:57-0400 Body weight 39.4 kg TO CASTILLO PA-C [facility] 01-13-2021 21:57-0400 Diastolic blood pressure 60 mm[Hg] TO PARKSC [facility] 01-13-2021 21:57-0400 Heart rate 81 /min TO CASTILLO PA-C [facility] 01-13-2021 21:57-0400 Respiratory rate 18 /min TO ANNA BUSTILLO [facility] 01-13-2021 21:57-0400 Systolic blood pressure 110 mm[Hg] TO ANNA BUSTILLO [facility] Encounters Encounter Date Encounter Type Care Provider Facility Start: 09-25-2023 End: 09-25-2023 Patient encounter procedure Carli Ann PA-C Work Phone: [facility] Comment on above: Bacterial vaginosis (Primary Dx) Start: 09-25-2023 End: 09-25-2023 ambulatory NO (HISTORY) PCP Facility:[id number] Start: 07-27-2021 End: 07-27-2021 Patient encounter procedure Jessica Granados APRN.CNM Work Phone: OB/Gynecology Comment on above: care and examination (Primary Dx); Encounter for initial prescription of contraceptive pills; History of section Start: 06-19-2021 End: 06-19-2021 Patient encounter procedure Jessica Granados APRN.CNM Work Phone: OB/Gynecology Comment on above: S/P section (Primary Dx) Start: 06-13-2021 ambulatory Verona Siddiqui Work Phone: OB/Gynecology Comment on above: Ob Delivery Note Start: 06-13-2021 Telephone encounter Verona ayala MD Work Phone: OB/Gynecology Comment on above: Appointment Start: 06-11-2021 End: 06-11-2021 ambulatory Luz Malone MD Work Phone: Pediatric Cardiology Comment on above: Arrived Start: 06-11-2021 End: 06-11-2021 Patient encounter procedure Luz Malone MD Work Phone: [facility] Start: 06-09-2021 End: 06-09-2021 Patient encounter procedure Nichole Christensen MD Work Phone: Maternal Medicine Comment on above: Suspected anom benjamin, antepartum, single or unspecified fetus (Primary Dx); Vaginal bleeding during ; 36 weeks gestation of 36 weeks gestation o f (Primary Dx); Encounter for supervision of normal first in third trimester; Poor growth affecting management of mother in third trimester, single or unspecified fetus Start: 03-23-2021 End: 03-23-2021 SAME DAY STAY YAAKOV PATEL MD [facility] Start: 01-13-2021 End: 01-14-2021 Emergency department patient visit TO CASTILLO PA-C [facility] Procedures Date Procedure Procedure Detail Performing Clinician Start: 09-25-2023 Iaadiadoo trichomona s vaginalis Carli Ann PA-C Work Phone: Start: 09-25-2023 Urine test visual color cmprsn meths Carli Ann PA-C Work Phone: Start: 06-11-2021 Echo cardiovas c w/wo m-mode recording Nichole Christensen MD Work Phone: Start: 06-09-2021 URINE OB DIP B/O Chaitanya Robins APRN.CNM Work Phone: Start: 04-15-2019 Blood count hemoglobin Comment on above: Performed By: #### [place] #### [place] [address] H/O: section S/P sectio n Jessica Granados APRN.CNM Work Phone: H/O: section History of section Jessica Granados APRN.CNM Work Phone: Plan of Treatment Date Care Activity Detail Author Start: 04-15-2031 Urine microalbumin profile DTaP,Tdap,Td Vaccine (8 - Td or Tdap) [facility] Start: 11-20-2023 Influenza vaccination Influenza Vacc ine (#1) [facility] Start: 07-09-2023 Screening for malign ant neoplasm of cervix Cervical Cancer Screening [facility] Start: 03-21-2023 Behavioral Health Screening Behavioral Health Screening [facility] Start: 11-19-2022 Covid-19 Vaccine () Covid-19 Vaccine ( season) [facility] Start: 12-10-2021 CHLAMYDIA SCREENING () CHLAMYDIA SCREENING () [facility] Start: 12-10-2021 GC (GONORRHEA) SCREE THUY () GC (GONORRHEA) SCREENING () [facility] Start: 12-10-2021 Screening for Chlamy taqueria trachomatis Chlamydia Screening () [facility] Start: 2021 Urine microalbumin profile DTAP,TDAP,TD (1 - Tdap) [facility] Start: 2018 Meningococcal B Vacc ine: Consider Based On Risk (1 of 2 - Patient Seeks Protection) Meningococcal B Vaccine: Consider Based On Risk (1 of 2 - Patient Seeks Protection) [facility] Start: 2018 MENINGOCOCCAL CONJUG ATE (1 - 2-dose series) MENINGOCOCCAL CONJUGATE (1 - 2-dose series) [facility] Start: 2016 PEDS TO ADULT TRANSI TION ANNUAL ASSESSMENT PEDS TO ADULT TRANSITION ANNUAL ASSESSMENT [facility] Start: 2014 Adult depression screening assessment DEPRESSION SCREENING [facility] Start: 2014 PEDS TO ADULT TRANSI TION INITIAL DISCUSSION PEDS TO ADULT TRANSITION INITIAL DISCUSSION [facility] Start: 2013 HPV VACCINE (1 - 2-d ose series) HPV VACCINE (1 - 2-dose series) [facility] Start: 2012 MENINGOCOCCAL B: Consider based on risk (1 of 2 - Risk Bexsero 2-dose series) MENINGOCOCCAL B: Consider based on risk (1 of 2 - Risk Bexsero 2-dose series) [facility] Start: 2009 Urine microalbumin profile DTAP,TDAP,TD (1 - Tdap) [facility] Start: 07-09-2007 COVID-19 VACCINE (#1) COVID-19 VACCI NE (#1) [facility] Start: 07-09-2007 COVID-19 VACCINE (1) COVID-19 VACCIN E (1) [facility] Bacteria identified in Urine by Culture URINE CULTURE Microbiology Routine Bacterial vaginosis 09/25/2023 5:27 PM EDT [facility] Work Phone: Chlamydia trachomatis+Neisseria gonorrhoeae DNA [Presence] in Unspecified specimen by ASHLYN with probe detection GONORRHEA/CHLAMYDIA NAAT Lab Routine Bacterial vaginosis 09/25/2023 5:33 PM EDT [facility] End: 06-09-2022 ECHO ECHO Cardiology Routine Suspected anomaly, antepartum, single or unspecified fetus 1 Occurrences starting 06/09/2021 until 06/09/2022 [facility] Work Phone: Comment on above: 1 Occurrences starti ng 06/09/2021 until 06/09/2022 Fungus identified in Unspecified specimen by Culture YEAST SCREEN Microbiology Routine Bacterial vaginosis 09/25/2023 5:33 PM EDT [facility] Immunizations Immunization Date Immunization Notes Care Provider Tyoa handley 02-18-2021 influenza virus vacc ine, unspecified formulation Carli Ann PA-C Work Phone: [facility] Payers Date Payer Category Payer Medicaid UHC MEDICAID [employer] MEDICA[place] [id number] 2022-Present [phone] [address] [place] [address] Medicaid [id number] 2022 Medicaid [id number] 2017 Medicaid [facility] MEDICAID FORMERLY [facility] MEDICAID [id number] 2017-Present [phone] [address] [place] [address] Medicaid [id number] Social History Date Type Detail Facility [facility] Sex Assigned At Female [facility] Start: 03-23-2021 End: 09-25-2023 Never smoked tobacco (finding) [facility] Start: 06-14-2016 End: 09-25-2023 Tobacco use and exposure Smokeless tobacco non-user [facility] Work Phone: Start: 10-11-2020 [facility] Start: 2002 Sex Assigned At Not on file [facility] Start: 05-30-2021 End: 06-15-2021 Exposure to SARS-CoV-2 (event) Not sure [facility] Start: 02-28-2020 End: 09-25-2023 History of Social function [facility] Start: 02-28-2020 End: 09-25-2023 Tobacco use panel [facility] National Score (1-100), lower number is lower risk Not on file [facility] Clinical Notes 12-12-2020 to 09-27-2023 Carli Ann PA-C - 09/25/2023 6:24 PM EDTPatient InstructionsJessica Granados APRN.[facility] - 07/27/2021 12:59 PM EDTJessica Granados APRN.CN - 07/27/2021 12:59 PM EDTPatient Instructions Note Date & Type Note Facility 09-27-2023 Note HNO ID: [id number] Author: SHIRA MCLAUGHLIN APRN.CNP Service: ? Author Type: Nurse Practitioner Type: Progress Notes Filed: 09/27/2023 14:07 Note Text: I called patient today, 2 ID identifiers used, patient is aware of negative gonorrhea and positive chlamydia, prescription for doxycycline sent into pharmacy on file( [facility] pharmacy). Shira Mclaughlin APRN.CNP [facility] 09-25-2023 Note HNO ID: [id number] Author: CARLI ANN PA-C Service: ? Author Type: Physician Director Process Engineering Type: Progress Notes Filed: 09/25/2023 18:26 Note Text: Minnie Bennett is a 23 year old female who presents with Vaginal Problem (Vaginal burning x 3 days denies any other symptoms ) Patient is a 23-year-old female presenting today with vaginal burning. Patient states that she has had symptoms for about 3 days now. Patient denies any other symptoms. Patient is sexually active but she does not think there could be any possible exposures to STDs. Patient was wanting to come in to be evaluated because her symptoms seem to be getting worse. PAST MEDICAL HISTORY Diagnosis Date Miscarriage 04/20/2020 Ovarian cyst 2017 ACTIVE PROBLEM LIST Chlamydial Infection Current Outpatient Medications Medication Sig Dispense Refill metroNIDAZOLE (FLAGYL) 500 mg tablet Take 1 tablet by mouth two times a day for 7 days. 14 tablet 0 Levonorgestrel-Ethinyl Estrad (ALESSE, 28,) 0.1mg - 20mcg per tablet Take 1 tablet by mouth once daily for 28 days. 28 tablet 0 ferrous sulfate (IRON) 325 mg (65 mg iron) tablet Take 1 tablet by mouth daily with breakfast. (Patient not taking: Reported on 09/25/2023) 30 tablet 1 PNV no.95/ferrous fum/folic ac ( ORAL) Take by mouth. (Patient not taking: Reported on 09/25/2023) No current facility-administered medications for this visit. Social History Tobacco Use Smoking status: Never Smokeless tobacco: Never Alcohol Use: Not on file Tobacco Use: Never History reviewed. No pertinent family history. Review of Systems Constitutional: Negative for chills, fever and malaise/fatigue. Respiratory: Negative. Cardiovascular: Negative. Gastrointestinal: Negative for abdominal pain, nausea and vomiting. Genitourinary: Negative for dysuria, flank pain, frequency, hematuria and urgency. Denies vaginal discharge. Admits to vaginal burning. Denies STD exposure. BP 94/60 Pulse 79 Temp 97.9 Resp 16 Wt 103 lb (46.7kg) SpO2 100% LMP 08/31/2023 Physical Exam Vitals and nursing note reviewed. Constitutional: General: She is not in acute distress. Appearance: Normal appearance. Cardiovascular: Rate and Rhythm: Normal rate and regular rhythm. Pulmonary: Effort: Pulmonary effort is normal. Breath sounds: Normal breath sounds. Abdominal: General: Abdomen is flat. Bowel sounds are normal. Tenderness: There is no abdominal tenderness. There is no right CVA tenderness, left CVA tenderness or guarding. Genitourinary: Comments: Delfina MONTESN was jira developer during this visit. Patient has normal outside structures. No lesions or rashes noted. Speculum was inserted normal vaginal holt cervix and cervical os. There is drainage near the cervical os which was taken for culture. No strawberry cervix noted on examination. No cervical motion tenderness noted on examination. Neurological: Mental Status: She is alert and oriented to person, place, and time. ASSESSMENT/PLAN: 1. Bacterial vaginosis - ICD9: 616.10, 041.9, ICD10: N76.0, B96.89 - URINALYSIS, DIPSTICK ONLY - HCG, QUALITATIVE, URINE - URINE CULTURE - TRICHOMONAS PREP - RAPID BACT VAGINOSIS (AK) - YEAST SCREEN - GONORRHEA/CHLAMYDIA NAAT - METRONIDAZOLE 500 MG TABLET Urinalysis urine was done in office today both were within normal limits. Urine culture will be sent out as well as testing for yeast infections and gonorrhea and chlamydia. Rapid BV and trichomoniasis were done in office today rapid strep was negative and rapid BV was positive. Metronidazole was sent to the pharmacy for the patient to take care of the BV and she is to take this as directed. We will call her if there is any positive results on further testing. Follow-up at [facility] if not improving. Patient agrees and understands plan at this time. Patient was stable upon discharge from [facility]. Carli Ann PA-C [facility] 09-25-2023 History of Presen t illness Narrative TrishRadha Edmonds Raoul is a 23 year old female who presents with Vaginal Problem (Vaginal burning x 3 days denies any other symptoms ) Patient is a 23-year-old female presenting today with vaginal burning. Patient states that she has had symptoms for about 3 days now. Patient denies any other symptoms. Patient is sexually active but she does not think there could be any possible exposures to STDs. Patient was wanting to come in to be evaluated because her symptoms seem to be getting worse. PAST MEDICAL HISTORY Diagnosis Date Miscarriage 04/20/2020 Ovarian cyst 2017 ACTIVE PROBLEM LIST Chlamydial Infection Current Outpatient Medications Medication Sig Dispense Refill metroNIDAZOLE (FLAGYL) 500 mg tablet Take 1 tablet by mouth two times a day for 7 days. 14 tablet 0 Levonorgestrel-Ethinyl Estrad (ALESSE, 28,) 0.1mg - 20mcg per tablet Take 1 tablet by mouth once daily for 28 days. 28 tablet 0 ferrous sulfate (IRON) 325 mg (65 mg iron) tablet Take 1 tablet by mouth daily with breakfast. (Patient not taking: Reported on 09/25/2023) 30 tablet 1 PNV no.95/ferrous fum/folic ac ( ORAL) Take by mouth. (Patient not taking: Reported on 09/25/2023) No current facility-administered medications for this visit. Social History Tobacco Use Smoking status: Never Smokeless tobacco: Never Alcohol Use: Not on file Tobacco Use: Never History reviewed. No pertinent family history. Review of Systems Constitutional: Negative for chills, fever and malaise/fatigue. Respiratory: Negative. Cardiovascular: Negative. Gastrointestinal: Negative for abdominal pain, nausea and vomiting. Genitourinary: Negative for dysuria, flank pain, frequency, hematuria and urgency. Denies vaginal discharge. Admits to vaginal burning. Denies STD exposure. BP 94/60 Pulse 79 Temp 97.9 Resp 16 Wt 103 lb (46.7kg) SpO2 100% LMP 08/31/2023 Physical Exam Vitals and nursing note reviewed. Constitutional: General: She is not in acute distress. Appearance: Normal appearance. Cardiovascular: Rate and Rhythm: Normal rate and regular rhythm. Pulmonary: Effort: Pulmonary effort is normal. Breath sounds: Normal breath sounds. Abdominal: General: Abdomen is flat. Bowel sounds are normal. Tenderness: There is no abdominal tenderness. There is no right CVA tenderness, left CVA tenderness or guarding. Genitourinary: Comments: Delfina GUZMÁN was jira developer during this visit. Patient has normal outside structures. No lesions or rashes noted. Speculum was inserted normal vaginal holt cervix and cervical os. There is drainage near the cervical os which was taken for culture. No strawberry cervix noted on examination. No cervical motion tenderness noted on examination. Neurological: Mental Status: She is alert and oriented to person, place, and time. ASSESSMENT/PLAN: 1. Bacterial vaginosis - ICD9: 616.10, 041.9, ICD10: N76.0, B96.89 - URINALYSIS, DIPSTICK ONLY - HCG, QUALITATIVE, URINE - URINE CULTURE - TRICHOMONAS PREP - RAPID BACT VAGINOSIS (AK) - YEAST SCREEN - GONORRHEA/CHLAMYDIA NAAT - METRONIDAZOLE 500 MG TABLET Urinalysis urine was done in office today both were within normal limits. Urine culture will be sent out as well as testing for yeast infections and gonorrhea and chlamydia. Rapid BV and trichomoniasis were done in office today rapid strep was negative and rapid BV was positive. Metronidazole was sent to the pharmacy for the patient to take care of the BV and she is to take this as directed. We will call her if there is any positive results on further testing. Follow-up at [facility] if not improving. Patient agrees and understands plan at this time. Patient was stable upon discharge from [facility]. Carli Ann PA-C documented in this encounter [facility] 07-27-2021 Note HNO ID: [id number] Author: Jessica Granados APRN.CNM Service: ? Author Type: Reaming Machine Tender Type: Progress Notes Filed: 07/27/2021 3:16 PM Note Text: VISIT Minnie Bennett is a 21 year old year old here for visit. Delivery Summary: Delivery information: Delivery date 06/13/2021 Delivery type C section Delivering clinician Dr. York Williamson: Name Sophia Gender F ROS/ Recovery: Feeding: Bottle feeding problems: Inadequate milk supply Menses since delivery: NA Menstrual pattern prior to : Irregular periods [place] since delivery: Not resumed Depression: denies symptoms of depression. OB Depression and Anxiety Screening- This Encounter (since 07/26/2021) Over the past 2 weeks have you felt down, depressed, or hopeless? Negative Over the past two weeks, have you felt little interest or pleasure in doing things?? Negative Feeling nervous, anxious or on edge 0-Not at all Not being able to stop or control worrying 0-Not al all Anxiety Pre-Screening Total (If >/= 3 additional questions will be reviewed) 0 Emotional support: Yes Bowel symptoms: No nausea, vomiting, or diarrhea, Negative for abdominal discomfort, blood in stools or black stools and change in bowel habits Abdomen: N/A Bladder symptoms: No dysuria, gross hematuria, urinary frequency, urinary urgency, or incontinence Other issues: None Last Pap: N/A PAST MEDICAL HISTORY Diagnosis Date - Miscarriage 04/20/2020 - Ovarian cyst 2017 PAST SURGICAL HISTORY Procedure Laterality Date - NONE No family history on file. Social History Tobacco Use - Smoking status: Never Smoker - Smokeless tobacco: Never Used Substance Use Topics - Alcohol use: Not on file - Drug use: Not on file PHYSICAL EXAMINATION: LMP 09/27/2020 BP 90/62 Wt 94 lb (42.6 kg) LMP 09/27/2020 GENERAL: pleasant, female in no apparent distress HEENT: Normocephalic, atraumatic, mucus membranes moist and no lesions NECK: Supple, full range of motion, no adenopathy and thyroid normal DERMATOLOGY: Normal, without lesions, non-icteric and non-hirsute BREAST: soft, non-tender, symmetric, no dominant mass, normal nipple-areolar complex, no lymphadenopathy and no nipple discharge CHEST: Normal inspiratory effort ABDOMEN: soft, non-tender and no masses. INCISION: No incisional redness, swelling, or drainage PELVIC: external genitalia normal, normal Bartholin's glands, urethra, [place]'s glands, no vulvar lesions, no cervical lesions, good vaginal support, physiologic discharge present, normal appearing perineal body and perianal region BIMANUAL: uterus normal size, shape and consistency, no adnexal masses and non-tender NEURO: alert and oriented x3,exam grossly non-focal EXTREMITIES: normal ASSESSMENT AND PLAN: 21 year old status post CS with normal course. Contraception plan: Oral contraceptives I discussed with the patient the risks, benefits, mechanism of action and alternatives to combined hormonal contraceptive use. No medical contraindications. Reviewed risk of blood clot, stroke and heart attack with hormonal contraception. Reviewed warning signs ACHES. Discussed stopping control 4 weeks prior to scheduled surgery if will be immobile. I reviewed with her the administration options and when to start. Her questions were answered and she desired to start. Follow up: RTC for annual exams and PRN. Follow up in 3 months for control Jessica Granados APRN.CNM [facility] 07-27-2021 Note HNO ID: [id number] Author: Jessica Granados APRN.CNM Service: ? Author Type: Reaming Machine Tender Type: Progress Notes Filed: 07/27/2021 3:16 PM Note Text: [facility] 07-27-2021 Instructions Jessica Granados APRN.WADEM - 07/27/2021 1:14 PM EDT Images from the original note were not included. Oral Contraceptives: The Pill Beginning the Pill Pills come in either a 21 day pack or a 28 day pack. With the 21 day pack you will take one pill for 21 days then no pill for 7 days, during which time you will have what is known as withdrawal bleeding. The 28 day pack allows you to take a pill every day of the cycle with no interruptions. The first 21 pills are the pills with the active ingredients and the last 7 are the nonmedical pills (placebo) or they may contain iron. There will be bleeding during the week you are taking the nonmedical pills. The advantage to the 28 day pack is that you don t have to keep track of when you stopped the pill. Unless otherwise instructed, you should start your pills the Tuesday following your first day of bleeding with your next period (if your period starts on a Tuesday, you should start pills the same day) Read your information packet that comes with the pills. Pill Benefits The pill is the most popular method of reversible control being used today. Millions of women rely on oral contraceptives as their control method. It is important to have an examination by your physician to determine if the pill is safe for you. There are several advantages associated with the pill: it is 97-98% effective; may improve acne; periods are more regular and less painful; there is less iron deficiency anemia in pill users. nursing home use is associated with a decreased incidence of ovarian and uterine cancer. There is also no evidence that the pill increases the incidence of any cancer. How Oral Contraceptives Work Oral contraceptives come in two varieties. One is the combination pill which contains both estrogen and progesterone. Combination pills are considered 98-99% effective in preventing . This pill comes in either monophasic, which delivers the same amount of estrogen and progesterone throughout the cycle; and triphasic, which try tries to mimic the normal hormone cycle by changing the levels of the hormones in the pills during the month. There is no real advantage to taking the one over the other. The other type of pill only contains progesterone. It is best used for women who can t take estrogen. This type of pill is slightly less effective than the combination pill in preventing . Oral contraceptives prevent ovulation (release of an egg from the ovary) by suppressing the pituitary gland s action. The pill does NOT prevent sexually transmitted disease. Obtaining a Prescription It is important to see your doctor before starting oral contraceptives so that you can have a full medical history taken and a physical examination given. Certain medical conditions may make the pill inappropriate for you, therefore it is very important to be honest and as complete as possible with the information you share with your doctor. The types of predisposing factors which would make the pill a poor choice of control would include: History of blood clots Stroke Serious liver disease or impaired liver function Unexplained vaginal bleeding or Cancer of the reproductive system Active gall bladder disease Hypertension Possible Side Effects It can take up to three months for your body to become adjusted to the pill. The more common side effects experienced at this time are: breakthrough spotting or bleeding, which is bleeding at any other time other than when you should be having a period; nausea or vomiting; breast tenderness; and mild fluid retention. There is no oysterman weight gain with the use of the pill. Breakthrough bleeding is the most common complaint of new pill users. There is no way to predict who will have it and there is no way of preventing it. Breakthrough bleeding usually subsides on its own with no further treatment after the first three months of taking the pill. If these symptoms continue to occur after the first three months you should check with your physician to see if there is any physical cause and possibly change to another control pill. Problems: 1. Missed 1 pill: Take 2 pills the next day. 2. Missed 2 pills: Take 2 pills the next day and 2 pills the following day. Also use another form of control (condoms) along with the pill for the rest of the month. 3. Missed 3 or more pills: You have two choices. You can take two pills each day until you are on schedule, plus use an additional form of control along with the pill for the rest of the month. Or you can stop the pill and start a completely new pack of pills the next Tuesday. You must use another form of control with the pill for at least the first two weeks of the new pack. 4. You re ill and you have been vomiting or have diarrhea: You must use another form of control with the pill since the pill may not be fully absorbed during your illness. Continue to use the added control until the end of the cycle. 5. Desire to become : Stop using the pill for one month before trying to become . 6. Taking other medications: The control pill is less effective when you take the antibiotic Rifampin, epilepsy (seizure) drugs such as phenytoin, carbamazepine, phenobarbital, topiramate and some medications for HIV. Let your doctor know if you start taking any of these medications while on the pill. Symptoms to Notify Your Doctor with Immediately: 1. Pain in your chest or legs 2. Continuous blurred vision 3. Severe headaches 4. Slurred speech 5. Tingling or weakness on one side of your body 6. Shortness of breath 7. Swelling of one leg Refills of Control Pills You need to see a doctor every year for a refill of your prescription. This is necessary in order that your health can be monitored closely while you are taking control pills. If your prescription should before your next scheduled appointment you can usually get a one month extension from your doctors office if you call during regular business hours about one week before you need to start the new package of pills. This allows the physician to refer to your chart for necessary health information. Scar Massage After Scar massage is beneficial for any surgical incision. After section delivery, the scar can be painful, cause poor muscle recruitment in the abdominal wall and cause adhesions that prevent healthy movement of the organs in the pelvic region. Scar tissue forms itself in a messy fashion, and if left alone, can be very restrictive and immobile. A simple technique of scar massage can prevent this, and help the scar heal nicely with good mobility and improve function of the abdominal muscles. Scar massage can even prevent excessive scarring and make the scar appear less noticeable! There are two strategies for massaging abdominal scars: 1: Skin stretching involves stretching the skin around the scar 2: Scar massage involves the skin directly on the scar Scar Massage: Skin Stretching Begin about 3-6 weeks after surgery, as long as incision is well healed. This can be done on your own, at home, for 5 minutes/day. 1. Place fingers 2-3 inches from scar. 2. Stretch the skin by moving the fingers up and down around the entire scar. 3. Repeat step 2 by stretching side to side and clockwise/counterclockwise. 4. Massage completely around the scar, repeating each movement 5-10 times. It is normal to experience a pulling or burning feeling when you initially are stretching the scar. If you feel an area that does not move as easily, spend a little extra time in this area stretching the scar. Direct Scar Massage Begin as soon as the incision is closed and well healed. 1. Hold the pads of two or three fingers together. The fingers should be slightly arched. 2. Place pads of fingers on the edge of the scar. 3. Stretch the scar by pushing fingers inch in one direction (indicated by arrows). Hold scar stretch for 10-15 seconds. 4. Repeat step 3 by stretching the scar in the opposite direction 5. Move along the scar every inch-1 inch and repeat over the entire length of the scar, stretching in all directions (up/down, side to side, and diagonal). Scar Lift and Roll 1. Lift scar away using index finger and thumb. 2. Roll the scar between fingers for 10-15 sceonds Move along entire length of scar repeating every inch-1 inch. These simple techniques do not take more than 5 minutes daily. They are easy to do in the shower or when baby is napping. You will be surprised at how quickly (within the first 2 weeks) the scar becomes less painful. The other fun part is that the appearance of the scar with be thinner and more favorable. Caring for yourself after baby is important! If you begin using this massage and don t find that it improves or you continue to have pain or weakness, you can see a pelvic physical therapist who can help! If no improvement in 2-4 weeks or worsening pain or discomfort please notify provider. We may also recommend referral to physical therapy. documented in this encounter [facility] 07-27-2021 History of Presen t illness Narrative VISIT Minnie Bennett is a 21 year old year old here for visit. Delivery Summary: Delivery information: Delivery date 06/13/2021 Delivery type C section Delivering clinician Dr. York Williamson: Name Sophia Gender F ROS/ Recovery: Feeding: Bottle feeding problems: Inadequate milk supply Menses since delivery: NA Menstrual pattern prior to : Irregular periods Sublette since delivery: Not resumed Depression: denies symptoms of depression. OB Depression and Anxiety Screening- This Encounter (since 07/26/2021) Over the past 2 weeks have you felt down, depressed, or hopeless? Negative Over the past two weeks, have you felt little interest or pleasure in doing things? Negative Feeling nervous, anxious or on edge 0-Not at all Not being able to stop or control worrying 0-Not al all Anxiety Pre-Screening Total (If >/= 3 additional questions will be reviewed) 0 Emotional support: Yes Bowel symptoms: No nausea, vomiting, or diarrhea, Negative for abdominal discomfort, blood in stools or black stools and change in bowel habits Abdomen: N/A Bladder symptoms: No dysuria, gross hematuria, urinary frequency, urinary urgency, or incontinence Other issues: None Last Pap: N/A PAST MEDICAL HISTORY Diagnosis Date Miscarriage 04/20/2020 Ovarian cyst 2017 PAST SURGICAL HISTORY Procedure Laterality Date NONE No family history on file. Social History Tobacco Use Smoking status: Never Smoker Smokeless tobacco: Never Used Substance Use Topics Alcohol use: Not on file Drug use: Not on file PHYSICAL EXAMINATION: LMP 09/27/2020 BP 90/62 Wt 94 lb (42.6 kg) LMP 09/27/2020 GENERAL: pleasant, female in no apparent distress HEENT: Normocephalic, atraumatic, mucus membranes moist and no lesions NECK: Supple, full range of motion, no adenopathy and thyroid normal DERMATOLOGY: Normal, without lesions, non-icteric and non-hirsute BREAST: soft, non-tender, symmetric, no dominant mass, normal nipple-areolar complex, no lymphadenopathy and no nipple discharge CHEST: Normal inspiratory effort ABDOMEN: soft, non-tender and no masses. INCISION: No incisional redness, swelling, or drainage PELVIC: external genitalia normal, normal Bartholin's glands, urethra, [place]'s glands, no vulvar lesions, no cervical lesions, good vaginal support, physiologic discharge present, normal appearing perineal body and perianal region BIMANUAL: uterus normal size, shape and consistency, no adnexal masses and non-tender NEURO: alert and oriented x3,exam grossly non-focal EXTREMITIES: normal ASSESSMENT AND PLAN: 21 year old status post CS with normal course. Contraception plan: Oral contraceptives I discussed with the patient the risks, benefits, mechanism of action and alternatives to combined hormonal contraceptive use. No medical contraindications. Reviewed risk of blood clot, stroke and heart attack with hormonal contraception. Reviewed warning signs ACHES. Discussed stopping control 4 weeks prior to scheduled surgery if will be immobile. I reviewed with her the administration options and when to start. Her questions were answered and she desired to start. Follow up: RTC for annual exams and PRN. Follow up in 3 months for control Jessica Granados APRN.CNM documented in this encounter [facility] 06-25-2021 Note HNO ID: [id number] Author: Karla Mehta RN Service: ? Author Type: ? Type: Progress Notes Filed: 06/25/2021 9:00 AM Note Text: Patient delivered via C/S at [facility] on 06/13/21 per Verona York DO. See OB Outcome note. Karla Mehta RN [facility] 06-25-2021 History of Presen t illness Narrative Patient delivered via C/S at [facility] on 06/13/21 per Verona York DO. See OB Outcome note. Karla Mehta RN documented in this encounter [facility] 06-19-2021 Note HNO ID: [id number] Author: Jessica Granados APRN.CNM Service: ? Author Type: Reaming Machine Tender Type: Progress Notes Filed: 06/22/2021 1:30 PM Note Text: EARLY VISIT Minnie Bennett is a 20 year old here for 1 week visit. Delivery Summary: Pt presented to [facility] with vaginal bleeding, abdominal pain, ctx's, and late decelerations. Delivered by primary section on 06/13/21. ROS: General: Denies any fever or chills Hypertension Screening: ? Headache? No. ? Visual Changes? No ? Epigastric Pain? No ? Increased Swelling? No ? Taking any BP medications at home? No ? If applicable, monitoring BP at home? (If Yes, include results) NA Mood: normal Depression: denies symptoms of depression. OB Depression and Anxiety Screening- This Encounter (since 06/18/2021) None Bladder: No dysuria, gross hematuria, urinary frequency, urinary urgency, or incontinence Bowel symptoms: Negative for abdominal discomfort, blood in stools or black stools and change in bowel habits Abdomen: N/A Bleeding: spotting Bottom and Perineum: No issues Sleep: no sleep concerns, feels rested Sublette since delivery: Not resumed Emotional support: Yes Exercise: N/A Other issues: None PHYSICAL EXAMINATION: BP 98/58 Wt 101 lb (45.8 kg) LMP 09/27/2020 Unknown General: pleasant,female in no apparent distress, AANDO x 3. Skin warm and intact. Breast: Deferred Abdomen: Deferred /Incision: No incisional redness, swelling, or drainage Pelvic: Deferred Bimanual: Deferred ASSESSMENT AND PLAN: 1. 20 year old status post CS with normal course. 2. Contraception plan: not applicable and none. Reinforced 6-week pelvic rest. Encouraged condom usage should patient deviate. 3. Education: resources provided - see MA/RN note 4. Return for 6 week PP visit Follow up: Return to Clinic for 6 week visit and as needed Jessica Granados APRN.[facility] 06-19-2021 History of Presen t illness Narrative EARLY VISIT Minnie Bennett is a 20 year old here for 1 week visit. Delivery Summary: Pt presented to L&D with vaginal bleeding, abdominal pain, ctx's, and late decelerations. Delivered by primary section on 06/13/21. ROS: General: Denies any fever or chills Hypertension Screening: Headache? No. Visual Changes? No Epigastric Pain? No Increased Swelling? No Taking any BP medications at home? No If applicable, monitoring BP at home? (If Yes, include results) NA Mood: normal Depression: denies symptoms of depression. OB Depression and Anxiety Screening- This Encounter (since 06/18/2021) None Bladder: No dysuria, gross hematuria, urinary frequency, urinary urgency, or incontinence Bowel symptoms: Negative for abdominal discomfort, blood in stools or black stools and change in bowel habits Abdomen: N/A Bleeding: spotting Bottom and Perineum: No issues Sleep: no sleep concerns, feels rested Sublette since delivery: Not resumed Emotional support: Yes Exercise: N/A Other issues: None PHYSICAL EXAMINATION: BP 98/58 Wt 101 lb (45.8 kg) LMP 09/27/2020 Unknown General: pleasant,female in no apparent distress, A&O x 3. Skin warm and intact. Breast: Deferred Abdomen: Deferred /Incision: No incisional redness, swelling, or drainage Pelvic: Deferred Bimanual: Deferred ASSESSMENT AND PLAN: 1. 20 year old status post CS with normal course. 2. Contraception plan: not applicable and none. Reinforced 6-week pelvic rest. Encouraged condom usage should patient deviate. 3. Education: resources provided - see MA/RN note 4. Return for 6 week PP visit Follow up: Return to Clinic for 6 week visit and as needed Jessica Granados APRN.CNM documented in this encounter [facility] 06-13-2021 Miscellaneous Notes Pt presented to L&D with vaginal bleeding, abdominal pain, ctx's, and late decelerations. Delivered by primary section on 06/13/21. She will need follow up in 1 week. documented in this encounter [facility] 06-12-2021 Note HNO ID: [id number] Author: Verona York MD Service: ? Author Type: Physician Type: Progress Notes Filed: 06/12/2021 12:08 PM Note Text: NST SUMMARY PROVIDER ASSESSMENT AND INTERPRETATION Indications for NST: Other: growth restriction, possible chronic abruption Baseline: 150 Variability: Moderate Accelerations: Present 15 X 15 Decelerations: None Interpretation: Reactive SIGNATURE: Verona York DO [facility] 06-11-2021 Note HNO ID: [id number] Author: Luz Malone MD Service: ? Author Type: Physician Type: Progress Notes Filed: 06/11/2021 2:06 PM Note Text: Referring: Nichole Christensen M.D. NAME: Minnie Bennett CLINIC Number.: [id number] Date of : 2000 Date of Visit: June 11, [address] Christensen: Ms. Minnie Bennett was seen for echocardiogram and pediatric cardiology consultation on June 11, 2021. She is a 20 year old woman, referred due to muscular VSD seen on recent ultrasound. She herself has no significant past medical history. There is family history of reportedly minor congenital heart disease in father's nephew. echocardiogram on June 11, 2021 at 36 weeks and 5 days of gestation shows atrial situs solitus with levocardia. SVC and IVC return normally to the right atrium. The os of the coronary sinus opens normally to the right atrium. One right and one left pulmonary vein were seen returning normally into the left atrium. The atria were normal in size and there was normal right to left shunting at the atrial level. The left and right ventricles were normal in size and shortening. No ventricular hypertrophy. There was a small mid muscular ventricular septal defect with a small bidirectional shunt. Normal mitral and tricuspid valves without significant regurgitation. The left and right ventricular outflow tracts were widely patent. The aortic and ductal arches were widely patent. heart rate and rhythm were regular and no pericardial effusion was seen. Normal Doppler of umbilical artery, umbilical vein, ductus venosus. In summary, the echocardiogram today showed a small mid muscular ventricular septal defect, which is highly unlikely to be of any hemodynamic significance or require intervention; otherwise there was normal intracardiac anatomy with normal ventricular function and normal heart rate and rhythm. We discussed these findings with Ms. Minnie Bennett. In addition, the limitations of the echocardiogram and echocardiography in general, including the inability to exclude ASDs, additional VSDs, minor valvar abnormalities, partial anomalous pulmonary venous return, persistent patent ductus arteriosus, and coarctation of the aorta, were explained. No additional testing is needed. Her plan is to deliver in [place] and I see no reason from a cardiac standpoint to alter those plans. The baby can be treated as a normal from a practical standpoint, and I recommend elective outpatient pediatric cardiology consultation in the first couple of weeks of life, which can be arranged with one of my colleagues at [facility]. Thank you for allowing me to participate in the care of your patient and please do not hesitate to contact me if I can be any further assistance. During this patient visit I have spent 30 minutes with more than 50% of the time devoted to counseling/coordination of care regarding the above results of the echocardiogram, clincal manifestations of the identified disease, prognosis, test results and treatment options, as detailed in my Assessment/Plan. Sincerely, Luz Malone MD Control Room Agent [facility] 06-11-2021 History of Presen t illness Narrative Referring: Nichole Christensen M.D. NAME: Minnie Bennett [facility] Number.: [id number] Date of : 2000 Date of Visit: June 11, [address] Christensen: Ms. Minnie Bennett was seen for echocardiogram and pediatric cardiology consultation on June 11, 2021. She is a 20 year old woman, referred due to muscular VSD seen on recent ultrasound. She herself has no significant past medical history. There is family history of reportedly minor congenital heart disease in father's nephew. echocardiogram on June 11, 2021 at 36 weeks and 5 days of gestation shows atrial situs solitus with levocardia. SVC and IVC return normally to the right atrium. The os of the coronary sinus opens normally to the right atrium. One right and one left pulmonary vein were seen returning normally into the left atrium. The atria were normal in size and there was normal right to left shunting at the atrial level. The left and right ventricles were normal in size and shortening. No ventricular hypertrophy. There was a small mid muscular ventricular septal defect with a small bidirectional shunt. Normal mitral and tricuspid valves without significant regurgitation. The left and right ventricular outflow tracts were widely patent. The aortic and ductal arches were widely patent. heart rate and rhythm were regular and no pericardial effusion was seen. Normal Doppler of umbilical artery, umbilical vein, ductus venosus. In summary, the echocardiogram today showed a small mid muscular ventricular septal defect, which is highly unlikely to be of any hemodynamic significance or require intervention; otherwise there was normal intracardiac anatomy with normal ventricular function and normal heart rate and rhythm. We discussed these findings with . Minnie Bennett. In addition, the limitations of the echocardiogram and echocardiography in general, including the inability to exclude ASDs, additional VSDs, minor valvar abnormalities, partial anomalous pulmonary venous return, persistent patent ductus arteriosus, and coarctation of the aorta, were explained. No additional testing is needed. Her plan is to deliver in [place] and I see no reason from a cardiac standpoint to alter those plans. The baby can be treated as a normal from a practical standpoint, and I recommend elective outpatient pediatric cardiology consultation in the first couple of weeks of life, which can be arranged with one of my colleagues at [facility]. Thank you for allowing me to participate in the care of your patient and please do not hesitate to contact me if I can be any further assistance. During this patient visit I have spent 30 minutes with more than 50% of the time devoted to counseling/coordination of care regarding the above results of the echocardiogram, clincal manifestations of the identified disease, prognosis, test results and treatment options, as detailed in my Assessment/Plan. Sincerely, Luz Malone MD Control Room Agent documented in this encounter [facility] 06-09-2021 Miscellaneous Notes S: Minnie Bennett is a 20 year old female who presents at 36.3 weeks gestation for a routine visit. Patient just completed BPP 10/26. VSD visualized and MFM speaking with patient via phone. Patient to be seen by cardiology on 06/11/21. It is undetermined whether or not patient will be able to delivery at [facility] or at [facility]. This will be determined after being evaluated by Cardiology. Denies any further vaginal bleeding. Denies any cramping, contractions or pain. Positive movement. O: See flow sheet Gen: No apparent distress Abd: Gravid, nontender ASSESSMENT/PLAN: 1. 36 weeks gestation of - ICD9: V22.2, ICD10: Z3A.36 (primary diagnosis) - URINE OB DIP B/O - No further vaginal bleeding - Delivery plan to be made after evaluation by cardiology - Patient to be induced possibly 37-38 weeks gestation- unsure if delivery at [facility] or [facility] 2. Poor growth affecting management of mother in third trimester, single or unspecified fetus - ICD9: 656.53, ICD10: O36.5930 - SGA PTL and kick counts reviewed RTO- 06/12/21 for NST and LA- Plan of care/ possible induction of labor Maryellen Robins APRN.CNM documented in this encounter [facility] 06-09-2021 Instructions Aide Evangelista MA - 06/09/2021 2:17 PM EDT SEQUENTIAL SCREENINGS The [facility] offers sequential screenings for women who are interested in screenings for chromosomal abnormalities and certain defects during a . The sequential screen combines ultrasound and blood tests to determine the risk of chromosomal abnormalities, including Down's Syndrome (Trisomy 21) and Trisomy 18, as well as open neural tube defects including spina bifida. Ultrasound examination is performed between 11 weeks and 13 weeks gestational age. Blood tests are drawn after the ultrasound and again later in the between 15 and 21 weeks gestational age. Please let your physician know if you are interested in this testing. It will require an appointment with our senior quality technician. This is not an ultrasound performed by a physician in our office during a routine visit. SIGNS AND SYMPTOMS OF LABOR 1. Contractions every 10 minutes or more often 2. Clear, pink, or brownish fluid (water) leaking from vagina 3. Feeling that baby is pushing down, pressure 4. Low, dull backache 5. Cramps that feel like a period 6. Cramps with or without diarrhea If you notice any of the above symptoms, contact our office at [phone] and ask to speak with a nurse. After hours, you can call doctors registry at [phone] OR call [facility] at [phone] and ask to have the doctor production ski repairer paged. If you consider this an emergency, dial [phone]- or go to your nearest emergency department. NEED HELP? Are you dealing with a violent or abusive relationship? Are you a victim of rape or sexual assult? Call [facility] ([place]) 24 hour Crisis Hotline: 650.835.4090 or 897-126-9620. MANUAL Your Guide to a Healthy manual is now on-line. Visit [email or web address] to download your free copy documented in this encounter [facility] 06-05-2021 History of Past i llness Narrative Problem Noted Date Resolved Date Poor growth affecting management of mother in third trimester 06/05/2021 07/27/2021 Overview: June 05, 2021 See MFM note. Likely delivery at 37 weeks, suspect chronic/partial abruption. Twice weekly testing. BPP weekly, NST weekly History of inadequate care 05/07/2021 07/27/2021 Overview: 05/07/21- Patient is a transfer of care at 30.4 weeks gestation. Received records and patient had 5 visits and last visit was 03/18/21. Maryellen Robins APRN.CNM High risk teen in third trimester 04/2107/27/2021 Uterine size-date discrepancy, third trimester 0 04/29/2021 07/27/2021 documented as of this encounter (statuses as of 07/27/2021) [facility]02-09-2022 NoteHNO ID: [id number] Author: Maryellen Robins APRN.CNM Service: ? Author Type: Reaming Machine Tender Type: Progress Notes Filed: 04/29/2021 4:19 PM Note Text: INITIAL OB ASSESSMENT OB Physician: Maryellen Robins APRN.CNM HPI: Minnie Bennett is a 20 year old White female here to establish Obstetrical Care. Dating Form was Patient's last menstrual period was 09/27/2020. She is a transfer of care from [facility] [place], [place] ([place]) Moved back to [facility]. SAB in 04/2020 Complaints: None- concerned over minimal weight gain was planned. Prior : never History of abnormal pap: N/A Prior treatment for cervical dysplasia: none. 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 - PNV no.95/ferrous fum/folic ac ( ORAL) Take by mouth. - ibuprofen (MOTRIN) 400 mg tablet Take 400 mg by mouth every 6 hours as needed. (Patient not taking: Reported on 04/29/2021 ) - acetaminophen (TYLENOL) 325 mg tablet Take 650 mg by mouth every 6 hours as needed. (Patient not taking: Reported on 04/29/2021 ) No current facility-administered medications on file prior to visit. Review of Systems: General: Benign Cardiovascular: Benign Respiratory: Benign Gastrointestinal: Benign Genitourinary: Urgency Neuromuscular: Benign Endocrine: Benign Dermatologic Benign Psychiatric: Benign PHYSICAL EXAM: BP 90/58 Ht 5' 2 (1.58m) Wt 104 lb (47.2kg) LMP 09/27/2020 BMI 19.02 kg/(m2). GENERAL: pleasant female in no apparent distress DERMATOLOGY: Normal, without lesions, non-icteric and non-hirsute NECK: Supple and full range of motion CHEST: Normal inspiratory effort BREAST: soft, non-tender, symmetric, no dominant mass, normal nipple-areolar complex, no lymphadenopathy and no nipple discharge ABDOMEN: soft, non-tender and no masses NEURO: alert and oriented x3,exam grossly non-focal ASSESSMENT/PLAN: 1. 30 weeks gestation of - ICD9: V22.2, ICD10: Z3A.30 (primary diagnosis) - Transfer of care from [place], [place] - Rh positive- O+ - TDAP already completed - LARC form reviewed and signed. Patient declines - Depression screen negative - Opioid screen negative - plan form discussed and given to patient. Patient desires epidural and 2. Uterine size-date discrepancy, third trimester - ICD9: 649.63, ICD10: O26.843 - S - OBSTETRIC ULTRASOUND WHI- growth US ordered 3. Urinary urgency - ICD9: 788.63, ICD10: R39.15 - UA DIP, URINE (POC)- NEGATIVE PTL and kick counts reviewed RTO- 2 weeks for LA and Growth US Maryellen Robins APRN.CNM I spent a total of 45 minutes on the date of the service which included preparing to see the patient, [id number] patient care, completing clinical documentation, performing a medically appropriate examination, counseling and educating the patient/family/caregiver and ordering medications, tests, or procedures.[facility]01-05-2022 Note. MICRO - Microbiology PROCEDURE: Urine Culture [*1] SOURCE: Urine, Clean Catch BODY SITE: COLLECTED DATE/TIME: 03/23/2021 04:57 EST RECEIVED DATE/TIME: 03/23/2021 07:18 EST START DATE/TIME: 03/23/2021 07:19 EST FREE TEXT SOURCE: FINAL REPORTS Final Report [] Verified Date/Time/Personnel: 03/25/2021 08:29 EST 10,000 - 50,000 cfu/ml Mixed growth consistent with normal urogenital talha. PRELIMINARY REPORTS Preliminary Report [] Verified Date/Time/Personnel: 03/24/2021 13:35 EST No growth to date Performing Locations *1: This test was performed at: [facility], [address] [place] [address], [id number] , [facility] ([place])03-23-2021 Evaluation + Plan note Diagnostic Tests Pending * Urine Culture 03/23/21 * Chlamydia trachomatis PCR 03/23/21 * N. gonorrhoeae PCR 03/23/21 [facility] 01-03-2022 Hospital Discharge instructions Patient Education 03/23/2021 08:50:11 7 - Labor and Delivery Outpatient Instructions (CUSTOM) [facility] HOME-GOING INSTRUCTIONS _X_ You are to follow up with your physician in ___ days/weeks. ACTIVITY ___ Bedrest __x_Activity as tolerated ___ No work/school for ___ days. ___Other PRESCRIPTION GIVEN ___No NAUSEA/VOMITING ___ Take small, frequent amounts of clear liquids. Avoid fruit juices and milk. ___ Increase fluid intake to a minimum of 8 ounces of fluid every hour while awake. ___ Soft diet. Rice, crackers, bananas, Jell-O, cooked carrots, applesauce. ___ Trinity diet. Avoid caffeine, chocolate, alcohol, spiced/greasy foods. URINARY TRACT INFECTION ___ Drink 8-12 glasses of water every day. ___ Urinate frequently; do not limit fluids to reduce frequency of urination. ___ Call your physician if burning and frequency with urination returns after taking all your medication. ___ Call your physician if you have a temperature of 100.4 degrees Fahrenheit or higher. ___ Wipe from front to back. SIGNS OF PRE-ECLAMPSIA ___ Severe heartburn. ___ Persistent headache not relieved by Tylenol. ___ Increased in swelling of face, hands and feet. ___ Blurred vision, double vision, or spots in the eyes. ___ Persistent vomiting. ___ *Convulsions or seizures. LABOR ___ Restrict activity. ___ Drink 8-12 glasses of water every day. __x_ Urinate frequently ___x Pelvic rest. No sexual intercourse/ Call your physician if you experience: ___ xIncrease in vaginal discharge, leaking fluid, or vaginal bleeding. __x_ More than 4, 5, or 6 contractions in one hour. __x_ Burning and frequency with urination. DECREASED MOVEMENT _x__ Lie down on your left side, drink some fluids and relax. Count the movements. You need to have 10 movements in 2 hours. _x__ If you do not feel the 10 movements, call your physician. OTHER ___ After an exam you may experience some spotting or discharge. As long as it is not bright red and heavy like a period or continues to leak as if your water broke, it is to be expected. ___ LABOR Call your physician if you experience: ___x Painful uterine contractions every 2-3___ minutes for ___1-2 hours. _x__A gush or continuous trickle of watery discharge. C__ Your abdomen feels continually firm. ___x *Bleeding is bright red and enough to saturate a pad in one hour or less. *Call 911 or go to the nearest Emergency Room for assistance. Form [id number] D: 02/26 Document Released: 03/07/2006 Document Revised: 02/24/2012 Document Reviewed: 03/07/2006 [facility] Patient Information 2012 [employer]. Follow Up Care 03/23/2021 03:50:33 With:OBEY GROSS MD, CLOUD ADMINISTRATOR-ONC Address: [phone] When: Unknown Comments:Follow-up as scheduled [facility] 09-24-2021 Note. MICRO - Microbiology PROCEDURE: Urine Culture [*1] SOURCE: Urine BODY SITE: COLLECTED DATE/TIME: 12/10/2020 11:21 EDT RECEIVED DATE/TIME: 12/10/2020 20:34 EDT START DATE/TIME: 12/10/2020 20:35 EDT FREE TEXT SOURCE: FINAL REPORTS Final Report [] Verified Date/Time/Personnel: 12/12/2020 06:59 EDT No growth at 48 hours. PRELIMINARY REPORTS Preliminary Report [] Verified Date/Time/Personnel: 12/11/2020 10:36 EDT No growth to date Performing Locations *1: This test was performed at: [facility], [address] [place] [address], [id number] , [facility] ([place])Comment on above:Performed By: #### UA, UAMIC #### [facility] [address] [place] [id number] + Plan note No data available for this section [facility] Evaluation note* Diagnosis Suspected anomaly, antepartum, single or unspecified fetus- Primary Vaginal bleeding during 36 weeks gestation of state, incidental documented in this encounter [facility] note* Diagnosis 36 weeks gestation of - Primary state, incidental Encounter for supervision of normal first in third trimester Supervision of normal first Poor growth affecting management of mother in third trimester, single or unspecified fetus documented in this encounter [facility] note* Diagnosis ventricular septal defect affecting antepartum care of mother, single or unspecified fetus- Primary documented in this encounter [facility] note* Diagnosis S/P section- Primary Other postprocedural status documented in this encounter [facility] note* Diagnosis care and examination- Primary Routine follow-up Encounter for initial prescription of contraceptive pills General counseling for prescription of oral contraceptives History of section Other postprocedural status documented in this encounter [facility] note* Diagnosis Bacterial vaginosis- Primary Vaginitis and vulvovaginitis, unspecified documented in this encounter [facility] Discharge instructions No data available for this section [facility] Summary Purpose Family History No Family History Records FoundNo Family History Records FoundNo Family History Records FoundNo Family History Records FoundNo Family History Records FoundNo Family History Records FoundNo Family History Records Found Advance Directives No Advanced Directives Records FoundNo Advanced Directives Records FoundNo Advanced Directives Records FoundNo Advanced Directives Records FoundNo Advanced Directives Records FoundNo Advanced Directives Records FoundNo Advanced Directives Records Found Additional Source Comments INFORMATION SOURCE (unrecogn ized section and content) DATE CREATED AUTHOR 05/24/2019 [facility] DATE CREATED AUTHOR AUTHOR'S ORGANIZ ATION 08/30/2019 [facility] DATE CREATED AUTHOR AUTHOR'S ORGANIZ ATION 04/22/2021 [facility] ([place]) DATE CREATED AUTHOR AUTHOR'S ORGANIZ ATION 04/29/2021 [facility] DATE CREATED AUTHOR AUTHOR'S ORGANIZ ATION 06/18/2021 [facility] DATE CREATED AUTHOR AUTHOR'S ORGANIZ ATION 07/28/2021 [facility] DATE CREATED AUTHOR AUTHOR'S ORGANIZ ATION 10/10/2023 [facility] nter Source Comments (unrecognize d section and content) In the event this informatio n is protected by the Federal Confidentiality of Alcohol and Drug Abuse Patient Records regulations: The Federal rules restrict any use of the information to criminally investigate or prosecute any alcohol or drug abuse patient.[facility] the event this information is protected by the Federal Confidentiality of Alcohol and Drug Abuse Patient Records regulations: The Federal rules restrict any use of the information to criminally investigate or prosecute any alcohol or drug abuse patient.[facility] the event this information is protected by the Federal Confidentiality of Alcohol and Drug Abuse Patient Records regulations: The Federal rules restrict any use of the information to criminally investigate or prosecute any alcohol or drug abuse patient.[facility] the event this information is protected by the Federal Confidentiality of Alcohol and Drug Abuse Patient Records regulations: The Federal rules restrict any use of the information to criminally investigate or prosecute any alcohol or drug abuse patient.[facility] the event this information is protected by the Federal Confidentiality of Alcohol and Drug Abuse Patient Records regulations: The Federal rules restrict any use of the information to criminally investigate or prosecute any alcohol or drug abuse patient.[facility] the event this information is protected by the Federal Confidentiality of Alcohol and Drug Abuse Patient Records regulations: The Federal rules restrict any use of the information to criminally investigate or prosecute any alcohol or drug abuse patient.[facility] the event this information is protected by the Federal Confidentiality of Alcohol and Drug Abuse Patient Records regulations: The Federal rules restrict any use of the information to criminally investigate or prosecute any alcohol or drug abuse patient.[facility] the event this information is protected by the Federal Confidentiality of Alcohol and Drug Abuse Patient Records regulations: The Federal rules restrict any use of the information to criminally investigate or prosecute any alcohol or drug abuse patient.[facility] Reason for Visit (unrecogniz ed section and content) Reason Comments US Reason Onset Date Comments Care 06/09/2021 Reason Comments Appointment Reason Comments Care Reason Comments Ob Delivery Note Reason Comments Routine Reason Comments Vaginal Problem Vaginal burning x 3 days denies any other symptoms Care Teams (unrecognized sec tion and content) Tool Operator Relationship Specialty Start Date End Date Verona Stovall (Rn), RN PCP - General 05/18/16 Tool Operator Relationship Specialty Start Date End Date Verona Stovall (Rn), RN PCP - General 05/18/16 Tool Operator Relationship Specialty Start Date End Date Verona Stovall (Rn), RN PCP - General 05/18/16 Tool Operator Relationship Specialty Start Date End Date Verona Stovall (Rn), RN PCP - General 05/18/16 Tool Operator Relationship Specialty Start Date End Date Verona Stovall (Rn), RN PCP - General 05/18/16 Tool Operator Relationship Specialty Start Date End Date Verona Stovall (Rn), RN PCP - General 05/18/16 Tool Operator Relationship Specialty Start Date End Date Pcp, No (History) PCP - General 09/25/23 FOR RECORDS PERTAINING TO PATIENTS WHO ARE OR HAVE BEEN ENROLLED IN A CHEMICAL DEPENDENCY/SUBSTANCEABUSE PROGRAM, SOME INFORMATION MAY BE OMITTED. This clinical summary was aggregated from multiple sources. Caution should be exercised in using it in the provision of clinical care. This summary normalizes information from multiple sources, and as a consequence, information in this document may materially change the coding, format and clinical context of patient data. In addition, data may be omitted in some cases. CLINICAL DECISIONS SHOULD BE BASED ON THE PRIMARY CLINICAL RECORDS. [facility] [employer] [facility]. provides no warranty or guarantee of the accuracy or completeness of information in this document.
[2025-02-23 01:58] LABS: Internal QC Validated? YES +Cl - CLEAR BKGD; Pregnancy, Serum, hCG Quali. NEGATIVE Negative
[2025-02-23 02:01] LABS: Anion Gap 13 (5-15); BUN 5 mg/dL (4-19); BUN/Creat Ratio 10.0 RATIO (10-20); Calcium,Total 8.9 mg/dL (7.6-11.0); Carbon Dioxide 23.5 mmol/L (21.0-32.0); Chloride 105 mmol/L (98-108); Estimated Creatinine Clearance 124.09 ml/min (50-250); Glucose 112 mg/dL (70-99); Potassium 3.6 mmol/L (3.3-5.1)
[2025-02-23 04:55] VITALS: BP 112/71; PULSE 66; RESP 14; O2SAT 100
[2025-02-23] MEDS: Ampicillin/Sulbactam 3 GM in 0.9% Normal Saline (100mL MB+) 100 ML IV (05:34)
[2025-02-23 06:16] VITALS: BP 100/63; PULSE 62; RESP 14; TEMP 37.1; O2SAT 100
== END 2025-02-23 06:23 | disposition home or self-care (01) ==
PROVIDERS: Emergency Provider Specialist/Technologist Athletic Trainer; Visit Provider Specialist/Technologist Athletic Trainer
DX: K04.7 Periapical abscess without sinus (principal); R68.83 Chills (without fever)
CPT/HCPCS: 70491; 80048; 84703; 85025; 96365; 96375; 99283; Q9967; A4216; J0295; J2405